=== PATIENT | female | born 1945 | race Caucasian/White ===

== ENCOUNTER 2024-11-13 08:40 | Inpatient (IN) | payer OTHER, SELFPAY ==
[2024-11-13] VITALS (11 sets, daily range): BP systolic 120–167; BP diastolic 47–108; PULSE 60–90; RESP 15–21; TEMP 36.2–36.7; O2SAT 97–100; BMI 30.8
--- NOTE | ~2024-11-13 | US_ITS ---
EXAMINATION: US carotid duplex BI DATE: 11/14/2024 09:18 INDICATION: Syncope TECHNIQUE: Grayscale, color Doppler, and pulsed Doppler images of the cervical carotid arteries were obtained. The degree of vessel stenosis is placed in one of the following categories: normal, <50%, 5 0-69%, >=70% but less than near-occlusion, near-occlusion, or total occlusion. Note that percent sten osis relative to normal distal artery lumen diameter is indirectly measured from velocity measurement s as described by Jeff, et al. Radiology 2003; [id number]. COMPARISON: None. FINDINGS: RIGHT: The right common carotid artery (CCA) peak systolic velocity (PSV) is 44 cm/s. The right internal car otid artery (ICA) PSV is 84 cm/s. The right ICA end-diastolic velocity (EDV) is 28 cm/s. The right IC A/CCA PSV ratio is 1.9. Grayscale and color Doppler images yield an estimate of <50% diameter reducti on from plaque in the ICA. The external carotid artery (ECA) PSV is 52 cm/s. There is antegrade flow in the right vertebral artery. LEFT: The left CCA PSV is 58 cm/s. The left ICA PSV is 113 cm/s. The left ICA EDV is 38 cm/s. The left ICA/ CCA PSV ratio is 1.9. Grayscale and color Doppler images yield an estimate of <50% diameter reduction from plaque in the ICA. The ECA PSV is 69 cm/s. There is antegrade flow in the left vertebral artery . IMPRESSION: 1. <50% stenosis in the right internal carotid artery. 2. <50% stenosis in the left internal carotid artery. Reviewed, dictated and finalized at location A.
--- NOTE | ~2024-11-13 | CT_ITS ---
CT head without contrast Indication: Status post fall Technique: Serial scans were obtained through the brain without the administration of contrast. Dose reduction technique was used on this scan by utilizing automated exposure control and iterative recon struction technique. The dose-length product (DLP) was 605.33 mGy-cm. Findings: There is no evidence of intracranial hemorrhage, mass lesion, or acute infarct. The ventri cles and subarachnoid spaces are dilated, consistent with normal atrophy. Low attenuation regions ar e seen within the periventricular white matter bilaterally, likely representing changes from chronic microvascular ischemic disease. There is no evidence of edema, mass effect or midline shift. The vi sualized paranasal sinuses and mastoid air cells are clear. Impression: No intracranial hemorrhage, mass, or acute infarct. Atrophy and chronic white matter changes, as above. Reviewed, dictated and finalized at location . Impression: No intracranial hemorrhage, mass, or acute infarct. Atrophy and chronic white matter changes, as above.
--- NOTE | ~2024-11-13 | CT_ITS ---
EXAMINATION: CT cervical spine wo con DATE: 11/13/2024 11:26 INDICATION: Fall TECHNIQUE: Computed tomography (CT) of the cervical spine was performed without intravenous contrast. Automated exposure control and iterative reconstruction technique were employed. The dose-length pro duct was 605.33 mGy-cm. COMPARISON: None FINDINGS: 2 mm retrolisthesis C3 on C4 and 1 mm retrolisthesis C4 on C5. Vertebral body heights are normal. Tiffany morl's node along the inferior endplate of T3. No fracture. Severe disc height loss at C3-C4, moderat e to severe disc height loss at C4-C5 and C5-C6 and moderate disc height loss at C6-C7 and T3-T4. Mil d disc height loss at C2-C3 and T2-T3. Posterior disc osteophyte complexes result in multilevel mild central canal stenosis at C3-C4 through C6-C7. Severe uncovertebral osteoarthritis bilaterally at C3- C4, C4-C5 and C6-C7 and moderate uncovertebral osteoarthritis bilaterally at C5-C6. Mild to moderate multilevel bilateral cervical and upper thoracic facet osteoarthritis. This contributes to moderate n eural foraminal stenosis on the left at C3-C4, on the right at C4-C5 and C5-C6 and bilaterally at C6- C7 with mild neural foraminal stenosis at many of the remaining cervical and upper thoracic neural fo ramina. Small CHRONIC calcification at the bilateral carotid bulbs. Cervical soft tissues are otherwi se unremarkable. Visualized apices of lungs are clear. IMPRESSION: 1. Severe cervical spondylosis. No acute osseous abnormality. Reviewed, dictated and finalized at location A.
--- NOTE | ~2024-11-13 | XR_ITS ---
Clinical Indication: Status post fall PA and lateral views of the chest: Comparison: None Findings: The lungs are clear, without evidence of focal consolidation or pleural effusion. Cardiome diastinal silhouette is within normal limits. Bones and soft tissues are unremarkable. Impression: Normal chest. Reviewed, dictated and finalized at location . Impression: Normal chest.
--- NOTE | ~2024-11-13 | XR_ITS ---
Right Knee Technique: AP, lateral, and sunrise views were obtained. Clinical History: Pain Findings: No fracture or dislocation is seen. Osseous alignment is anatomic. Joint spaces are preserv ed with minimal degenerative spurring. Soft tissues are unremarkable. No joint effusion is seen. Impression: Minimal degenerative change. Reviewed, dictated and finalized at location . Impression: Minimal degenerative change.
--- NOTE | ~2024-11-13 | CT_ITS ---
CT thoracic lumbar wo con Ordering provider: Zaira Yip PA-C History: . fall . Comparison: None. Technique: CT thoracic and lumbar spine without contrast. Automated exposure control and iterative r econstruction technique were employed. The dose-length product was 732.04 mGy-cm. Thoracic spine: FINDINGS: VERTEBRAE: Normal height and alignment. No subluxation or visible acute fracture. Degenerative change s of the spine DISC SPACES: Narrowing of multiple disc spaces in the midthoracic area. Facet joint disease at the le claire of T11-T12. PARASPINOUS SOFT TISSUES: Normal. IMPRESSION: No acute osseous abnormality of the thoracic spine. Multilevel degenerative disc disease. CT thoracic lumbar wo con Ordering provider: Zaira Yip PA-C History: 79 years Female with . fall . Comparison: None. Technique: CT lumbar spine without contrast. Automated exposure control and iterative reconstruction technique were employed. The dose-length product was 732.04 mGy-cm. FINDINGS: VERTEBRAE: Normal height and alignment. No subluxation or visible acute fracture. Degenerative change s. DISC SPACES: Narrowing of the disc L2-L3, L3-L4, L4-L5 and L5-S1. Vacuum phenomena is seen in all the se levels. Multilevel facet joint disease. T12-L1: No stenosis. L1-L2: No stenosis. L2-L3: No stenosis. Diffuse disc bulge. L3-L4: No stenosis. Diffuse disc bulge with bilateral narrowing of the foramina. L4-L5: No stenosis. Diffuse disc bulge with bilateral narrowing of the foramina. L5-S1: No stenosis. Diffuse disc bulge with bilateral narrowing of the foramina and nerve root compr ession. PARASPINOUS SOFT TISSUES: Mild atheromatous disease of the abdominal aorta. IMPRESSION: No acute osseous abnormality. Multilevel degenerative disc disease. Reviewed, dictated and finalized at location A. IMPRESSION: No acute osseous abnormality of the thoracic spine. Multilevel degenerative disc disease. CT thoracic lumbar wo con Ordering provider: Zaira Yip PA-C History: 79 years Female with . fall . Comparison: None. Technique: CT lumbar spine without contrast. Automated exposure control and it erative reconstruction technique were employed. The dose-length product was 732 .04 mGy-cm. FINDINGS: VERTEBRAE: Normal height and alignment. No subluxation or visible acute fractur e. Degenerative changes. DISC SPACES: Narrowing of the disc L2-L3, L3-L4, L4-L5 and L5-S1. Vacuum phenom junior is seen in all these levels. Multilevel facet joint disease. T12-L1: No stenosis. L1-L2: No stenosis. L2-L3: No stenosis. Diffuse disc bulge. L3-L4: No stenosis. Diffuse disc bulge with bilateral narrowing of the foramina . L4-L5: No stenosis. Diffuse disc bulge with bilateral narrowing of the foramin a. L5-S1: No stenosis. Diffuse disc bulge with bilateral narrowing of the foramin a and nerve root compression. PARASPINOUS SOFT TISSUES: Mild atheromatous disease of the abdominal aorta.
--- OUTSIDE RECORDS SUMMARY | 2024-11-13 09:06 | XMS_ITS | Encounter Summary ---
Author Organization 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 Family Medicine at [address] [phone] James Stapleton MD [address] [place] [phone] Appointment Request Social History Tobacco Use Types Packs/Day Years Used Date Smoking Tobacco: Former Cigarettes 1 30 0 08/28/1969 - 08/28/1999 Smokeless Tobacco: Never Alcohol Use Standard Drinks/Week Comments Not Currently 0 (1 standard drink = 0.6 oz pur e alcohol) Social Connection and Isolat ion Panel [NHANES] Answer Date Recorded In a typical week, how many times do you talk on the phone with family, friends, or neighbors? Once a week 05/02/2023 How often do you get togethe r with friends or relatives? Once a week 05/02/2023 How often do you attend [facility] or yarsani services? More than 4 times per year 05/02/2023 Do you belong to any clubs o r organizations such as hoahaoism groups, unions, fraternal or athletic groups, or school groups? No 05/02/2023 How often do you attend meet ings of the clubs or organizations you belong to? Never 05/02/2023 Are you , , di vorced, , never , or living with a partner? 05/02/2023 AUDIT-C Answer Date Recorded Q1: How often do you have a drink containing alc ohol? Never 05/02/2023 Q2: How many drinks containi ng alcohol do you have on a typical day when you are drinking? 1 or 2 05/02/2023 Q3: How often do you have six or more drinks on one occasion? Never 05/02/2023 Overall Financial Resource Strain (CARDIA) Answe r Date Recorded How hard is it for you to pa y for the very basics like food, housing, medical care, and heating? Somewhat hard 05/02/2023 PHQ-2 Answer Date Recorded PHQ-2 Total Score (If total score is 3 or more points, staff should administer the PHQ-9) 0 05/18/2023 Hunger Vital Sign Answer Date Recorded Within the past 12 months, y ou worried that your food would run out before you got the money to buy more. Never true 05/02/20 23 Within the past 12 months, t he food you bought just didn't last and you didn't have money to get more. Never true 05/02/2023 Housing Stability Vital Sign Answer Forrest e Recorded In the last 12 months, was t here a time when you were not able to pay the mortgage or rent on time? No 05/02/2023 In the last 12 months, how many places have you lived? 1 05/02/2023 In the last 12 months, was t here a time when you did not have a steady place to sleep or slept in a mcc (including now)? No 05/02/2023 Personal Safety Answer Date Recorded Have you ever been in or are you currently in a harmful physical or emotional relationship or is someone making you feel afraid or unsafe? 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 documented in this encounter Plan of Treatment Not on file documented as of this encounter Visit Diagnoses Not on filedocumented in this encounter Care Teams Food Bagging Machine Operator Relationship Specialty Start Date End Date James Stapleton MD PCP - General Family Medicine 10/15/18 [place] [id number] [address] Consulting Physician Gastroenterology 05/05/23 documented as of this encounter
--- OUTSIDE RECORDS SUMMARY | 2024-11-13 09:06 | XMS_ITS | CONTINUITY OF CARE DOCUMENT ---
Author Name rachel ramos Address Unknown Organization [facility] Address [address] [place] [address] Phone [phone] Care Team Providers Care College Sports Assistant Name Role Phone Venkta Lemons MD Unavailable CAMILO YO MD Unavailable PROBLEMS Condition Status Date Provider Notes Iron deficiency anemia active Caty Rubio son HYPOTHYROIDISM active ? Venkat Lemons MD Hyperlipidemia, unspecified active Chelo cortes RN DIABETES MELLITUS active ? Venkat Lemons MD OBESITY active ? Venkat Lemons MD CHEST PAIN-3/14 NUC NEG EF 61 active ? Venkat Lemons MD SHORTNESS OF BREATH-3/14 PFT MILD REST active ? Venkat Lemons MD ENCOUNTERS Date Type Provider Location Encounter Diag nosis - In-person encounter Office Visit Venkat Lemons MD [facility] Hyperlipidemia, unspecifiedCHEST PAIN-3/14 NUC NEG EF 61SHORTNESS OF BREATH-3/14 PFT MILD REST - In-person encounter Office Visit Venkat Lemons MD [facility] HYPOTHYROIDISMHyperlipidemi a, unspecifiedDIABETES MELLITUSOBESITYCHEST PAIN-3/14 NUC NEG EF 61SHORTNESS OF BREATH-3/14 PFT MILD REST VITAL SIGNS Date Observation Value Provider Body Mass Index (Ratio) 29.74 kg/m2 Charlene ica Precious Sanchez blood pressure, diastolic 70 mm[Hg] Bubba ssica Precious Sanchez blood pressure, systolic 140 mm[Hg] Radha haleighgin Sanchez oxygen saturation, oximetry 96 % Caty N Daniel respiratory rate E&M 18 /min Caty N Daniel pulse rate 72 /min Caty N Wilso n weight E&M 160 [lb_av] Caty N Wilso n Body Mass Index (Ratio) 29.85 kg/m2 Charlene ica N Daniel blood pressure, diastolic 70 mm[Hg] Je ssica N Daniel blood pressure, systolic 110 mm[Hg] Radha haleigh N Daniel oxygen saturation, oximetry 98 % Caty N Daniel respiratory rate E&M 18 /min Caty N Daniel pulse rate 74 /min Caty N Wilso n weight E&M 160.6 [lb_av] Caty N Wils on Body Mass Index (Ratio) 30.89 kg/m2 [facility] oly [facility] [place] blood pressure, cuff size regular [facility] [place] blood pressure, diastolic 80 mm[Hg] Je ssica N Daniel blood pressure, systolic 160 mm[Hg] Radha haleigh N Daniel oxygen saturation, oximetry 97 % Caty N Daniel respiratory rate E&M 20 /min Caty N Daniel pulse rate 86 /min Caty N Wilso n weight E&M 166.2 [lb_av] Caty N Wils on Body Mass Index (Ratio) 30.48 kg/m2 [facility] [place] blood pressure, diastolic 60 mm[Hg] Je ssica N Daniel blood pressure, systolic 130 mm[Hg] Radha haleigh N Daniel oxygen saturation, oximetry 97 % Caty N Daniel respiratory rate E&M 20 /min Caty N Daniel pulse rate 88 /min Caty N Wilso n weight E&M 164 [lb_av] Caty N Wilso n blood pressure, diastolic 67 mm[Hg] Nahum precious Bird RN blood pressure, systolic 119 mm[Hg] Demar Bird RN pulse rate 81 /min Demar Bird RN oxygen saturation, oximetry 98 % Demar Bird RN respiratory rate E&M 16 /min Demar stafford RN Body Mass Index (Ratio) 29.85 kg/m2 Demar Bird RN weight E&M 160 [lb_av] Demar Bird RN blood pressure, diastolic 63 mm[Hg] Nahum precious Bird RN blood pressure, systolic 127 mm[Hg] Demar Bird RN pulse rate 77 /min Demar Bird RN oxygen saturation, oximetry 98 % Demar Bird RN respiratory rate E&M 16 /min Demar stafford [place] Body Mass Index (Ratio) 30.07 kg/m2 Demar Bird RN weight E&M 161.2 [lb_av] Demar Bird RN height E&M 61.5 [in_i] Demar Bird [place] ALLERGIES No Known Drug Allergies RESULTS Date Observation Value Provider Reference Range Interpretation Location ferritin, serum 550.3 ng/mL [facility] 13.0 - 150.0 High red blood cell distribution width, size density 51.4 fL [facility] - immature granulocytes, percentage of total cells, blood 0.2 % [facility] - nucleated red blood cells as percent of blood leukocytes 0.0 % [facility] - red blood cell (erythrocyte) count, per high power field 0.0 10*3/UL [facility] - eosinophils as percent of blood leukocytes 1.9 % [facility] - neutrophils as percent of blood leukocytes 56.3 % [facility] - Absolute Neutrophils 2.9 CELLS/UL [facility] 1.5 - 7.8 basophils as percent of blood leukocytes 0.4 % [facility] - Absolute Basophils 0.0 CELLS/UL [facility] 0.0 - 0.2 monocytes as percent of blood leukocytes 6.6 % [facility] Monocytes 0.3 CELLS/UL [facility] 0.2 - 1.0 lymphocytes as percent of blood leukocytes 34.6 % [facility] - Absolute Lymphocytes 1.8 CELLS/UL [facility] 0.9 - 3.9 mean platelet volume 11.3 (?) [facility] platelet count 122.0 THOUSAND/ UL [facility] 100.0 - 400.0 mean corpuscular hemoglobin concentration, RBC 32.1 G/DL [facility] 31.0 - 38.0 mean corpuscular hemoglobin, RBC 31.6 pg [facility] 25.0 - 35.0 mean corpuscular volume, RBC 98.6 fL [facility] 75.0 - 100.0 hematocrit, blood 42.1 % [facility] 35.0 - 55.0 hemoglobin, blood 13.5 g/dL [facility] 11.5 - 16.5 erythrocyte count, whole blood 4.3 MILLION/U L [facility] 3.5 - 5.5 iron, serum 114.0 ug/dL [facility] 25.0 - 156.0 iron saturation percent, serum 28.5 % [facility] 20.0 - 50.0 iron binding capacity, total 400.4 ug/dL [facility] 250.0 - 450.0 ferritin, serum 111.8 ng/mL [facility] 13.0 - 150.0 immature granulocytes, percentage of total cells, blood 0.2 % [facility] - nucleated red blood cells as percent of blood leukocytes 0.0 % [facility] - red blood cell (erythrocyte) count, per high power field 0.0 10*3/UL [facility] - eosinophils as percent of blood leukocytes 1.7 % [facility] - neutrophils as percent of blood leukocytes 47.1 % [facility] - Absolute Neutrophils 2.2 CELLS/UL [facility] 1.5 - 7.8 basophils as percent of blood leukocytes 0.4 % [facility] - Absolute Basophils 0.0 CELLS/UL [facility] 0.0 - 0.2 monocytes as percent of blood leukocytes 5.7 % [facility] - Absolute Monocytes 0.3 CELLS/UL [facility] 0.2 - 1.0 lymphocytes as percent of blood leukocytes 44.9 % [facility] - Absolute Lymphocytes 2.1 CELLS/UL [facility] 0.9 - 3.9 mean platelet volume 10.5 (?) [facility] - platelet count 115.0 THOUSAND/ UL [facility] 100.0 - 400.0 mean corpuscular hemoglobin concentration, RBC 30.0 G/DL [facility] 31.0 - 38.0 Low mean corpuscular hemoglobin, RBC 26.1 pg [facility] 25.0 - 35.0 mean corpuscular volume, RBC 87.2 fL [facility] 75.0 - 100.0 hematocrit, blood 36.7 % [facility] 35.0 - 55.0 hemoglobin, blood 11.0 g/dL [facility] 11.5 - 16.5 Low erythrocyte count, whole blood 4.2 MILLION/U L [facility] 3.5 - 5.5 iron, serum 63.0 ug/dL [facility] 25.0 - 156.0 iron saturation percent, serum 13.9 % [facility] 20.0 - 50.0 Low iron binding capacity, total 452.2 ug/dL [facility] 250.0 - 450.0 High platelet count 197 10*3/mm3 [facility] hematocrit, blood 26.3 % Em Ro triglyceride, serum, fasting 91 mg/dL Em [facility] HDL cholesterol, serum 34 mg/dL [facility] lipoprotein, beta, serum, point, quantitative, calculated 55 mg/dL Em Ro cholesterol, serum 107 mg/dL Em Jayjay thyroid stimulating hormone, serum 0.018 u[IU]/mL [facility] B-type natriuretic peptide 198 pg/mL Em Jayjay alanine aminotransferase (SGPT), serum 30 1/L [facility] aspartate aminotransferase (SGOT), serum 54 1/L [facility] creatinine, serum 0.58 mg/dL [facility] potassium, serum 3.8 mmol/L [facility] sodium, serum 144 mmol/L [facility] HISTORY OF MEDICATION USE Medication Status Instructions Dates Provider Indications Com ments ASPIRIN 81 MG ORAL TABLET CHEWABLE active Take one (1) tablet by mouth daily 6 Venkat Lemons MD SPIRONOLACTONE 25 MG ORAL TABLET active 1 tab daily 6 Shyla Mccarty FUROSEMIDE 40 MG ORAL TABLET active 1 tab daily 6 Shyla Mccarty AMARYL 4 MG ORAL TABLET active 1 tab twice daily 6 Shyla Mccarty METFORMIN HCL 1000 MG ORAL TABLET active 1 tab twice daily 6 Shyla Mccarty CARVEDILOL 6.25 MG ORAL TABLET active 1 tab twice daily 6 Shyla Mccarty SIMVASTATIN 80 MG ORAL TABLET active 1 tab daily 6 Shyla Mccarty LEVOTHYROXINE SODIUM 150 MCG ORAL TABLET active 1 tab daily 6 Syhla Mccarty SOCIAL HISTORY Date Observation Value Provider social history reviewed E&M reviewed Demar Bird RN drug use no Demar Bird RN passive cigarette smoke exposure no Demar Bird RN smoking, year quit 2000 Demar ramey RN social history E&M Marital Status: [place] d Demar Bird RN caffeine use, average drinks per day yes Demar Bird RN smoking status former smoker Demar Enciso social history reviewed E&M reviewed Demar Bird RN MENTAL STATUS Date Observation Value Provider assessment of judgme nt and insight E&M Alert and oriented to time, place and person. Mood and affect are normal. lauren simon has speech impedament Demar Bird RN assessment of judgme nt and insight E&M Alert and oriented to time, place and person. Mood and affect are normal. 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 1 tab twice daily Amaryl 4 Mg Tabs (Glimepiride) ..... 1 tab twice daily Aspirin 81 Mg Chw Tab (Aspirin) ..... Take one (1) tablet by mouth daily BP today: / Prior BP: 127/63 (09/26/2013) Labs Reviewed: C reat: 0.58 (09/10/2013) Venkat Lemons MD Venkat Lemons MD : H er updated medication list for this problem includes: Carvedilol 6.25 Mg Tabs (Carvedilol) ..... 1 tab twice daily Furosemide 40 Mg Tabs (Furosemide) ..... 1 tab daily Spironolactone 25 Mg Tabs (Spironolactone) ..... 1 tab daily Aspirin 81 Mg Chw Tab (Aspirin) ..... Take one (1) tablet by mouth daily BP today: / Prior BP: 127/63 (09/26/2013) N uclear Stress Findings: 1. Normal myocardial perfusion imaging after vasodilator stress with Regadenoson. 2 . Normal left ventricular systolic function with a calculated ejection fraction of 61%. 3 . No obvious significant scintigraphic evidence of myocardial ischemia or scar. - GC (10/09/2013) H CT: 26.3 (09/10/2013) Platelets: 197 (09/10/2013) C reat: 0.58 (09/10/2013) Na+: 144 (09/10/2013) K+: 3.8 (09/10/2013) SGOT (AST): 54 (09/10/2013) SGPT (ALT): 30 (09/10/2013) TSH: 0.018 (09/10/2013) Venkat Lemons MD new patient for ches t pain: H er updated medication list for this problem includes: Carvedilol 6.25 Mg Tabs (Carvedilol) ..... 1 tab twice daily BP today: 127/63 Prior BP: / () & #13;Orders: E KG (CPT-78792) S TR - Adenosine (40176) C omplete Echo (CPT-41415) F ull PFT (*) Venkat Lemons MD new patient for ches t pain: H er updated medication list for this problem includes: Simvastatin 80 Mg Tabs (Simvastatin) ..... 1 tab daily BP today: 127/63 Prior BP: / () Venkat Lemons MD new patient for ches t pain: H er updated medication list for this problem includes: Levothyroxine Sodium 150 Mcg Tabs (Levothyroxine sodium) ..... 1 tab daily Venkat Lemons MD Date Name FERRITIN IRON AND TOTAL IRON BINDING CAPACITY IRON, TOTAL CBC (INCLUDES DIFF/P LT) Full PFT Complete Echo STR - Adenosine HISTORY OF PROCEDURES Procedure Date Procedure Name Provider Procedure Notes S tatus DLCO - 36257 Venkat Lemons MD complet ed FRC - 45372 Venkat Lemons MD complete d FVC - 91860 Venkat Lemons MD complete d EKG Venkat Lemons MD completed
--- OUTSIDE RECORDS SUMMARY | 2024-11-13 09:06 | XMS_ITS | Referral Summary ---
Author Organization [facility] [address] [facility] Address [address] [place] [address] Care Team Providers Care Applied Behavior Science Specialist Name Role Phone James Stapleton MD Primary Care Provider [phone] Jose Benavidez MD Unavailable Encounters Date Type Department Care Team Description 11/12/2024 Telephone [facility] Medical [facility] Family Medicine at [address] [place] [phone] James Stapleton MD Appointment Request 10/25/2024 Telephone [facility] Family Medicine at [address] [place] [address] Shayla Velasquez MA Unsuccessful Phone Call 1 (Essence awv) from Last 3 Months Allergies No known active allergies Medications blood-glucose meter (Blood Glucose Monitoring) kitIndications: Type 2 diabetes mellitus without complication, without long-term current use of insulin (HCC) 1 kit daily Check blood sugar daily 1 each 1 Active lancets miscIndications :Type 2 diabetes mellitus without complication, without long-term current use of insulin (HCC) Check blood sugar daily 100 each [address] (PROTONIX) 40 mg EC tabletIndicatio ns:GI Bleed Take 1 tablet (40 mg total) by mouth daily 30 tablet 11 3 Active losartan (COZAAR) 100 mg tablet Take 0.5 tablets (50 mg total) by mouth daily 30 tablet 5 4 Active triamcinolone (KENALOG) 0.1 % ointment Apply topically 2 (two) times a day as needed for rash 60 g 1 4 Active Additional Information Patient not taking.Reported on 01/04/2024 spironolactone (ALDACTONE) 25 mg tablet Take 1 tablet by mouth once daily 90 tablet 2 4 Active metFORMIN (GLUCOPHAGE) 1,000 mg tablet Take 1 tablet by mouth twice daily 180 tablet 2 4 Active carvediloL (COREG) 6.25 mg tablet Take 1 tablet by mouth twice daily 180 tablet 4 Active levothyroxine (SYNTHROID) 137 mcg tablet Take 1 tablet by mouth once daily 90 tablet 4 Active pioglitazone (ACTOS) 15 mg tablet Take 1 tablet by mouth once daily 90 tablet 4 Active glimepiride (AMARYL) 4 mg tablet Take 1 tablet by mouth twice daily 180 tablet 4 Active lovastatin (MEVACOR) 20 mg tablet Take 1 tablet by mouth once daily 90 tablet 4 Active Active Problems Problem Noted Date Diagnosed Date Anemia 04/29/2023 Primary localized osteoarthrosis of shoulder reg ion 02/28/2022 Radiotherapy follow-up 02/28/2022 Thrombocytopenia 04/02/2020 Medicare annual wellness visit, subsequent 03/29 Essential hypertension 11/23/2018 Assessment & Plan (10/20/2021 9:58 AM CDT): Well controlled. Continue current regimen. Hypothyroidism 11/23/2018 Assessment & Plan (10/20/2021 9:58 AM CDT): Update labs per orders. Continue levothyroxine Type 2 diabetes mellitus wit hout complication, without long-term current use of insulin ([facility]) 11/23/2018 Assessment & Plan (10/20/2021 9:57 AM CDT): Last A1C was 8.3 but since then Farxiga has gotten to expensive so she stopped. Will d/c Farxiga and try Januvia 100 mg daily instead. Continue metformin and glimepiride. DM eye exam is UTD 12/2020. Check A1C, CMP, and uACR. Lymphedema 11/23/2018 Assessment & Plan (11/23/2018 10:36 AM CDT): Stop lasix Cont spironolactone Chronic right shoulder pain 11/23/2018 Assessment & Plan (11/23/2018 10:36 AM CDT): To ortho Iron deficiency anemia 08/11/2016 Assessment & Plan (10/20/2021 9:59 AM CDT): FIT test 07/2021 was negative. Recheck CBC along with iron studies and B12. Hyperlipidemia, unspecified 07/24/1959 Resolved Problems Problem Noted Date Diagnosed Date Resolved Date Gastrointestinal hemorrhage 04/28/2023 08/22/2023 Chest pain, unspecified 02/28/2022 03/0 03/2023 Diabetes mellitus 02/28/2022 08/22/2023 Incomplete tear of rotator cuff 02/28/2022 08/22/2023 Obesity 02/28/2022 08/22/2023 Shortness of breath 02/28/2022 05/18/20 23 Shoulder joint pain 02/28/2022 08/22/19 24 Right upper quadrant pain 10/20/2021 Assessment & Plan (10/20/2021 9:54 AM CDT): Suspect more musculoskeletal but will check CBC and CMP along with RUQ US. Start celebrex 100 mg BID Immunizations Immunization Administration Dates Next Due COVID-19 MRNA (MODERNA) .5 M L (50 MCG) VACCINE (12 YEARS AND UP) 05/05/2023 Influenza, Quadrivalent, Hig h Dose, Preservative Free, Intrr 04/10/2023,04/17/2022 Influenza, Quadrivalent, Rec ombinant, Egg Free, Preservative Free, Intramuscular 04/23/2020 Influenza, Trivalent, High D ose, Split, Preservative Free, Intramuscular 04/01/2019,03/23/2018,05/02/2017,05/02,07/24/2015 Influenza, Unspecified 03/24/2021 Pneumococcal Conjugate PCV 13 05/04/2016 Pneumococcal Polysaccharide PPV23 05/02/2017 RSV Vaccine, Pref, Recombina nt, Subunit, Adjuvanted, PF, IM (Arexvy) 04/10/2023 Tdap 02/23/2022 ZOSTER Recombinant 07/13/2022,03/28/2022 Social History Tobacco Use Types Packs/Day Years Used Date Smoking Tobacco: Former Cigarettes 1 30 0 08/28/1969 - 08/28/1999 Smokeless Tobacco: Never Tobacco Cessation:Counseling Given: Not Answered Alcohol Use Standard Drinks/Week Comments Not Currently [...] week 05/02/2023 How often do you attend chur ch or judaism services? More than 4 times per year 05/02/2023 Do you belong to any clubs o r organizations such as gnosticism groups, unions, fraternal or athletic groups, or [...] place to sleep or slept in a usp (including now)? No 05/02/2023 Personal Safety Answer Date Recorded Have you ever been in or are you currently in a harmful physical or emotional relationship or is someone making you feel afraid or unsafe? Denies 05/02/2023 Comments No Sex and Gender Information Value Date Recorded Sex Assigned at Not on file Legal Sex Female 11:27 PM ETYMOLOGY TEACHER Gender Identity Not on file Sexual Orientation Not on file Last Filed Vital Signs Vital Sign Reading Time Taken Comments Blood Pressure 148/88 01/04/2024 9:44 AM CDT Pulse 79 01/04/2024 9:44 AM CDT Temperature 36.5 C (97.7 F) 08/22/2023 9:23 AM ETYMOLOGY TEACHER Respiratory Rate 16 01/04/2024 9:44 AM CDT Oxygen Saturation 98% 01/04/2024 9:44 AM CDT Inhaled Oxygen Concentration - - Weight 71.8 kg (158 lb 6.4 oz) 01/04/2024 9:44 A M CDT Height 154.9 cm (5' 1 ) 01/04/2024 9:44 AM CDT Body Mass Index 29.93 01/04/2024 9:44 AM CDT Plan of Treatment Not on file Procedures Procedure Name Priority Date/Time Associated Diagnosis Comments COMPREHENSIVE METABOLIC PANEL Routine 02/01/2024 9:36 AM CDT Essential hypertension Type 2 diabetes mellitus without complication, without long-term current use of insulin (HCC) HEMOGLOBIN A1C Routine 02/01/2024 9:36 AM CDT Type 2 diabetes mellitus without complication, without long-term current use of insulin (HCC) LIPID PANEL Routine 02/01/2024 9:36 AM CDT Essential hypertension ALBUMIN CREATININE RATIO, URINE Routine 08/18/2023 9:29 AM ETYMOLOGY TEACHER Type 2 diabetes mellitus without complication, without long-term current use of insulin (HCC) COLONOSCOPY 05/02/2023 4:26 PM CDT DEXA AXIAL SKELETON BONE DENSITY 1 OR MORE SITES Schedule Routine, Read Routine (OP Routine) 11/09/2022 11:23 AM CDT Post menopausal problems Stress fracture of left foot with routine healing, subsequent encounter DIAGNOSTIC MAMMOGRAM BILATERAL W ERIK Schedule Routine, Read Routine (OP Routine) 04/07/2022 10:57 AM CDT Abnormal mammogram of right breast Abnormal mammogram of left breast from Last 3 Months or Most Recently Relevant to Health Maintenance Results * (ABNORMAL) Hemoglobin A1c (02/01/2024 9:36 AM CDT) Hgb A1C 7.9(H) <5.7 % of total Hgb [facility] Comment: For someone without known diabetes, a hemoglobin A1c value of 6.5% or greater indicates that they may have diabetes and this should be confirmed with a follow-up test. For someone with known diabetes, a value <7% indicates that their diabetes is well controlled and a value greater than or equal to 7% indicates suboptimal control. A1c targets should be individualized based on duration of diabetes, age, comorbid conditions, and other considerations. Currently, no consensus exists regarding use of hemoglobin A1c for diagnosis of diabetes for children. This test was performed on the Nilay pepe c503 platform. Effective 10/09/23, a change in test platforms from the Robbins Microsoft Exchange Architect to the Nilay pepe c503 may have shifted HbA1c results compared to historical results. Based on laboratory validation testing conducted at [facility], the Nilay platform relative to the Robbins platform had an average increase in HbA1c value of < or = 0.3%. This difference is within accepted variability established by the National Glycohemoglobin Standardization Program. Note that not all individuals will have had a shift in their results and direct comparisons between historical and current results for testing conducted on different platforms is not recommended. Blood 02/01/2024 9:36 AM CDT 02/01/2024 9:37 AM CDT Narrative [facility] - 02/01/2024 10:21 PM CDT FASTING:YES FASTING: YES us James Stapleton MD LAB BLOOD ORDERABLES Final Re sult [facility] [address] [place] [address] * (ABNORMAL) Lipid panel (02/01/2024 9:36 AM CDT) [facility] Cholesterol 155 <200 mg/dL [facility] HDL 45(L) > OR = 50 mg/dL [facility] Triglycerides 119 <150 mg/dL [facility] LDL 88 mg/dL (calc) [facility] Comment: Reference range: <100 Desirable range <100 mg/dL for primary prevention; <70 mg/dL for patients with CHD or diabetic patients with > or = 2 CHD risk factors. LDL-C is now calculated using the Liu-Baldo calculation, which is a validated novel method providing better accuracy than the Friedewald equation in the estimation of LDL-C. Liu GIBBS et al. ZAC. 2013;310(19): 2975-6467 (http://education.Warranty Life.Kontron/faq/DLT384) Chol/HDL ratio 3.4 <5.0 (calc) [facility] Non-HDL, (LDL+VLDL) 110 <130 mg/dL (calc) [facility] Comment: For patients with diabetes plus 1 major ASCVD risk factor, treating to a non-HDL-C goal of <100 mg/dL (LDL-C of <70 mg/dL) is considered a therapeutic option. Blood 02/01/2024 9:36 AM CDT 02/01/2024 9:37 AM CDT Narrative [facility] - 02/01/2024 10:21 PM CDT FASTING:YES FASTING: YES James Stapleton MD LAB BLOOD ORDERABLES Final Re sult [facility] [address] [place] [address] * (ABNORMAL) Comprehensive metabolic panel (02/01/2024 9:36 AM CDT) [facility] Glucose 123(H) 65 - 99 mg/dL [facility] Comment: Fasting reference interval For someone without known diabetes, a glucose value between 100 and 125 mg/dL is consistent with prediabetes and should be confirmed with a follow-up test. BUN 11 7 - 25 mg/dL [facility] Creatinine 0.81 0.60 - 1.00 mg/dL [facility] eGFR 75 > OR = 60 mL/min/1.7 3m2 [facility] BUN/creat ratio SEE NOTE: 6 - 22 (calc) [facility] Comment: Not Reported: BUN and Creatinine are within reference range. Sodium 137 135 - 146 mmol/L [facility] Potassium, pl 4.1 3.5 - 5.3 mmol/L [facility] Chloride 104 98 - 110 mmol/L [facility] CO2 25 20 - 32 mmol/L [facility] Calcium 9.3 8.6 - 10.4 mg/dL [facility] Protein, sr 6.6 6.1 - 8.1 g/dL [facility] Albumin 4.1 3.6 - 5.1 g/dL [facility] GLOBULIN 2.5 1.9 - 3.7 g/dL (calc) [facility] Alb/glob ratio 1.6 1.0 - 2.5 (calc) [facility] Bilirubin, total 0.7 0.2 - 1.2 mg/dL [facility] Alk phos 63 37 - 153 U/L [facility] AST 21 10 - 35 U/L [facility] ALT (SGPT) 14 6 - 29 U/L [facility] Blood 02/01/2024 9:36 AM CDT 02/01/2024 9:37 AM CDT Narrative [facility] - 02/01/2024 10:21 PM CDT FASTING:YES FASTING: YES James Stapleton MD LAB BLOOD ORDERABLES Final Re sult [facility] [address] [place] [address] * (ABNORMAL) Albumin Creatinine Ratio, Urine (08/18/2023 9:29 AM ETYMOLOGY TEACHER) Creatinine, ur 87 20 - 275 mg/dL [facility] Microalbumin, ur 8.4 See Note: mg/dL [facility] Comment: Reference Range: Reference Range Not established Microalbumin/creat ratio 97(H) <30 mcg/mg creat [facility] Comment: The ADA defines abnormalities in albumin excretion as follows: Albuminuria Category Result (mcg/mg creatinine) Normal to Mildly increased <30 Moderately increased 30-299 Severely increased > OR = 300 The ADA recommends that at least two of three specimens collected within a 3-6 month period be abnormal before considering a patient to be within a diagnostic category. Urine 08/18/2023 9:29 AM ETYMOLOGY TEACHER 08/18/2023 9:32 AM ETYMOLOGY TEACHER Narrative [facility] - 08/19/2023 12:59 PM ETYMOLOGY TEACHER FASTING:YES FASTING: YES James Stapleton MD LAB URINE ORDERABLES Final Re sult Performing Organization Address City/[facility]/ZIP Co de Phone Number [facility] [address] [address] * COLONOSCOPY (05/02/2023 4:26 PM CDT) Anatomical Region Laterality Modality Other Narrative Procedure Note Jose Benavidez MD - 05/02/2023 4:26 PM CDT [facility] Endoscopy [facility] Patient Name: Zenobia White Procedure Date: 05/02/2023 4:26 PM Date of : 1945 Admit Type: Inpatient Age: 77 Gender: Female Note Status: Finalized Attending MD: Jose Benavidez M.D. Procedure Date: 05/02/2023 Procedure: Colonoscopy Indications: Heme positive stool, Iron deficiency anemiasecondary to chronic blood loss Providers: Jose Benavidez M.D., Honey Yarbrough, BUILDING RENTAL MANAGER (Anesthesia Staff), Awilda Ron, KYRA, Samantha Putnam, Horseradish Maker Referring MD: Zulma Terrazas M.D. Medicines: Fentanyl 50 micrograms IV, Midazolam 2 mg IV Complications: No immediate complications. Estimated Blood Loss: Estimated blood loss: none. Procedure: Pre-Anesthesia Assessment: - Airway Examination: normal oropharyngeal airwayand neck mobility. - Respiratory Examination: clear to auscultation. - ASA Grade Assessment: III - A patient with severe systemic disease. - After reviewing the risks and benefits, thepatient was deemed in satisfactory condition to undergo the procedure. - The risks and benefits of the procedure and the sedation options and risks were discussed with the patient. All questions were answered and informed consent was obtained. After I obtained informed consent, the scope was passed under direct vision. Throughout theprocedure, the patient's blood pressure, pulse, and oxygen saturations were monitored continuously. The scopewas passed under direct vision. The Colonoscope was introduced through the anus and advanced to the the cecum, identified by the appendiceal orifice, ileocecal valve and palpation. The colonoscopy was performed with ease. The patient tolerated the procedure well. The quality of the bowelpreparation was evaluated using the BBPS ([place] BowelPreparation Scale) with scores of: Right Colon = 3, Transverse Colon = 3 and Left Colon = 3 (entire mucosa seenwell with no residual staining, small fragments of stoolor opaque liquid). The total BBPS score equals 9. The quality of the bowel preparation was good. Thebowel preparation used was Plenvu via split dose instruction. Bowel prep was administered using asplit dose. Findings: The perianal and digital rectal examinations were normal. A 3 mm polyp was found in the sigmoid colon. The polyp was sessile.The polyp was removed with a cold biopsy forceps. Resection and retrieval were complete. Estimated blood loss: none. A few medium-mouthed diverticula were found in the sigmoid colon. The retroflexed view of the distal rectum and anal verge was normaland showed no anal or rectal abnormalities. Impression: - One 3 mm polyp in the sigmoid colon, removed witha cold biopsy forceps. Resected and retrieved. - Diverticulosis in the sigmoid colon. - The distal rectum and anal verge are normal on retroflexion view. Recommendation: - Return patient to hospital chan for ongoingcare. - Await pathology results. - Repeat colonoscopy is not recommended. 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 All rights reserved. The codes documented in this report are preliminary and upon clinical coder reviewmay be revised to meet current compliance requirements. Electronically signed by Jose Benavidez MD Jose Benavidez M.D. 05/02/2023 5:12:06 PM Number of Addenda: 0 Note Initiated On: 05/02/2023 4:26 PM Jose Benavidez MD ENDOSCOPY PROCEDURES Edited Resu lt - Final * Dexa Axial Skeleton Bone Density 1 Or 2 Site (11/09/2022 11:23 AM CDT) Anatomical Region Laterality Modality Body N/A Mammography 11/09/2022 5:57 PM CDT Narrative 11/09/2022 5:57 PM CDT EXAM DESCRIPTION: DEXA AXIAL SKELETON BONE DENSITY 1 OR MORE SITES REASON FOR STUDY: 77 y/o year old F with given history of screening. Energy Technician/Model: Apprenda A (S/N [id number]) CLINICAL INFORMATION: Current height: 60.5 inches Maximum height: 63 inches Weight: 164 pounds Risk factors: Prior fracture and parent with hip fracture COMPARISON: None available FINDINGS: AP LUMBAR SPINE L1-L4: Total BMD is 0.985 g/cm2 T-score is -0.6 LEFT HIP: Total BMD is 0.668 g/cm2 T-score is -2.2 Femoral neck BMD is 0.590 g/cm2 T-score is -2.3 FRAX: 10 year risk for a major osteoporotic fracture is 36 %, 10 year risk for a hip fracture is 22 % IMPRESSION: Low bone mass REFERENCE: Bone mineral density: Normal (T-score above or = -1.0) Low bone mass (T-score between -1.0 and -2.5) replaces the previously used term osteopenia Osteoporosis (T-score = or below -2.5) Medical evaluation for secondary causes of low bone mineral density may be appropriate. FRAX is a World Health Organization validated fracture risk assessment tool that calculates a person's 10 year probability of a major osteoporosis related fracture and hip fracture. According to the National Osteoporosis Foundation guidelines, postmenopausal women and men age 50 or older with low bone mass and a 10 year probability of a major osteoporosis related fracture = or greater than 20% or a 10 year probability of a hip fracture = or greater than 3% should be considered for treatment. For further information, including treatment recommendations, please refer to the 2013 ISCD Official Positions (http://www.iscd.org) and the NOF's Clinician's Guide to Prevention and Treatment of Osteoporosis (http://www.nof.org/professionals/clinical-guidelines) THIS IS AN ELECTRONICALLY VERIFIED FINAL REPORT 11/09/2022 5:57 PM - Electronically signed by Kathleen Birmingham M.D. TW: TW Report ID: [id number] Reading Location: [id number] Procedure Note Kathleen Birmingham MD - 11/09/2022 EXAM DESCRIPTION: DEXA AXIAL SKELETON BONE DENSITY 1 OR MORE SITES REASON FOR STUDY: 77 y/o year old F with given history of screening. Energy Technician/Model: Apprenda A (S/N [id number]) CLINICAL INFORMATION: Current height: 60.5 inches Maximum height: 63 inches Weight: 164 pounds Risk factors: Prior fracture and parent with hip fracture COMPARISON: None available FINDINGS: AP LUMBAR SPINE L1-L4: Total BMD is 0.985 g/cm2 T-score is -0.6 LEFT HIP: Total BMD is 0.668 g/cm2 T-score is -2.2 Femoral neck BMD is 0.590 g/cm2 T-score is -2.3 FRAX: 10 year risk for a major osteoporotic fracture is 36 %, 10 year risk for ahip fracture is 22 % IMPRESSION: Low bone mass REFERENCE: Bone mineral density: Normal (T-score above or = -1.0) Low bone mass (T-score between -1.0 and -2.5) replaces thepreviously used term osteopenia Osteoporosis (T-score = or below -2.5) Medical evaluation for secondary causes of low bone mineral density may be appropriate. FRAX is a World Health Organization validated fracture risk assessmenttool that calculates a person's 10 year probability of a major osteoporosisrelated fracture and hip fracture. According to the National OsteoporosisFoundation guidelines, postmenopausal women and men age 50 or older with low bonemass and a 10 year probability of a major osteoporosis related fracture = or greater than 20% or a 10 year probability of a hip fracture = or greaterthan 3% should be considered for treatment. For further information, including treatment recommendations, please referto the 2013 ISCD Official Positions (http://www.iscd.org) and the NOF's Clinician's Guide to Prevention and Treatment of Osteoporosis (http://www.nof.org/professionals/clinical-guidelines) THIS IS AN ELECTRONICALLY VERIFIED FINAL REPORT 11/09/2022 5:57 PM - Electronically signed by Kathleen Birmingham M.D. TW: LOREN Report ID: [id number] Reading Location: [id number] us James Stapleton MD IMG DXA PROCEDURES Final Resu lt * Diagnostic Mammogram Bilateral W Erik (04/07/2022 10:57 AM CDT) Anatomical Region Laterality Modality Breast Bilateral Mammography 04/07/2022 11:2 8 AM CDT Impressions 04/07/2022 11:42 AM CDT 1. The multiple small masses in the left breast are either unchanged or decreased in size since April 2019, evidence of benign etiologies. 2. No mammographic or sonographic evidence of malignancy. Routine screening mammogram in 1 year is recommended. BIRADS 2 - Benign findings. COMMENT: The patient has been or will be notified of these findings and impression. THIS IS AN ELECTRONICALLY VERIFIED FINAL REPORT 04/07/2022 11:42 AM - Electronically signed by Karlos Mane M.D., MD: Report ID: [id number] Reading Location: MAMME Narrative 04/07/2022 11:42 AM CDT EXAM DESCRIPTION: US BREAST LEFT LIMITED; DIAGNOSTIC MAMMOGRAM BILATERAL W ERIK REASON FOR STUDY: 76-year-old female presents for follow-up of probably benign left breast masses and annual left screening mammogram. COMPARISON: Mammogram and ultrasound from 04/25/2019. Mammogram only from 04/08/2019. TECHNIQUE: CC and MLO views of the bilateral breasts were obtained with digital technique using breast tomosynthesis with C view. Multiple grayscale and color Doppler ultrasound images of the left breast were obtained. FINDINGS: DENSITY: The breasts are almost entirely fatty. MAMMOGRAM FINDINGS: There is a tiny group of stable benign calcifications in the right breast at 12 o'clock, middle depth. There is a 4 mm oval low-density mass in the left breast at approximately 4 o'clock, anterior to middle depth, and there is a 3 mm oval low-density mass in the left breast at 2-3 o'clock, anterior depth. Neither of these masses has suspiciously changed, evidence of benign etiologies based on documented stability of at least 2 years. The 4 o'clock mass was occult on prior ultrasound. The other small low-density masses in the left breast evident on prior mammography are not identified on this examination, likely representing benign resolved entities. New suspicious findings are seen within either breast. There has been no suspicious interval change. ULTRASOUND FINDINGS: Targeted ultrasound of the left breast at 2:30 o'clock, 4 cm from the nipple demonstrates a 3 x 1 x 2 mm circumscribed hypoechoic mass, which has not suspiciously changed. Targeted ultrasound of the left breast at 1 o'clock, 5 cm from the nipple demonstrates a 2 x 1 x 2 mm circumscribed hypoechoic mass, which has not suspiciously changed. Targeted ultrasound of the left breast at 12:30 o'clock, 4-5 cm from the nipple demonstrates a 2 x 2 x 2 mm circumscribed hypoechoic mass, which has not suspiciously changed. James Stapleton MD IM MAMMO PROCEDURES Final Re sult from Last 3 Months or Most Recently Relevant to Health Maintenance Insurance [employer] Advance Directives For more information, please contact: [phone] Documents on File Type Date Recorded Patient Washer Carcass Expl anation ADVANCE DIRECTIVE 03/29/2019 * Full Code (Latest Code Status on File) Date Activated Date Inactivated Comments 05/02/2023 3:13 PM 05/05/2023 10:06 PM * Full Code Date Activated Date Inactivated Comments 05/01/2023 1:15 PM 05/02/2023 3:13 PM Care Teams Applied Behavior Science Specialist Relationship Specialty Start Date End Date James Stapleton MD PCP - General Family Medicine 10/15/18 [place] [id number] [address] Consulting Physician Gastroenterology 05/05/23
--- OUTSIDE RECORDS SUMMARY | 2024-11-13 09:06 | XMS_ITS ---
Author Organization 1 OF [facility] Address [address] [facility] [address] [place] [address] Care Team Providers Care Garment Examiner Name Role Phone James Stapleton MD Primary Care Provider Unavailab Jaycee Nova Unavailable [phone] Allergies No Known Allergies REASON FOR VISIT Pain in RT foot shooting up to knee Medications Medication SIG (Take, Route, Frequency, Duration) Notes Start Date End Date Status Pantoprazole Sodium Active Ferrous Sulfate Acti ve Pioglitazone HCl Act addis CeleBREX Active Farxiga Not-Taking Levothyroxine Sodium Active Dapagliflozin Propanediol Not-Taking Glimepiride Active Lidocaine ointment 5% Apply to affected area of foot topical every 4-6 hours prn pain for 60 days 09/28/2022 Not-Taking Coreg Not-Taking Losartan Potassium A ctive Lovastatin Active Carvedilol Active metFORMIN HCl Active Spironolactone Activ e Vital Signs Height 61 in 05/22/2023 Weight 164 lbs 05/22/2023 BMI 30.98 kg/m2 05/22/2023 Encounters Encounter Location Date Provider Diagnosis 1 OF [facility] [address] [place] [address] [place] [id number] 05/22/2023 Jaycee Holguin Tendinitis of right foot M77.51 ; Type 2 diabetes mellitus with other circulatory complications E11.59 ; Right foot pain M79.671 ; Onychogryphosis L60.2 and Onychodystrophy L60.3 Assessments Encounter Date Diagnosis (ICD Code) Assessment Notes Treatment Notes Treatment Clinical Notes Section Notes 05/22/2023 Tendinitis of right foot (ICD-10 - M77.51) Evaluation today included a review of medical history, review of systems, discussion of exam findings, and review of diagnoses and treatment options. X-rays were reviewed and discussed. She was advised to rest her foot as much as possible. She can ice her foot for 10-15 minutes at a time. I recommended immobilization in the previous Cam Walker boot that she has at home. She states that she will try this. She was advised to wear the boot as much as possible. I discussed potential transitioning into an ankle brace or inserts in her shoes when her pain improves. All questions and concerns were addressed. 05/22/2023 Type 2 diabetes mellitus with other circulatory complications (ICD-10 - E11.59) Considering the associated comorbidities and physical exam findings today, this patient is at substantial risk of developing serious foot complications in the absence of regular and professional palliative foot care. 05/22/2023 Right foot pain (ICD-10 - M79.671) 05/22/2023 Onychogryphosis (ICD-10 - L60.2) 05/22/2023 Onychodystrophy (ICD-10 - L60.3) Plan Of Treatment Treatment Notes Assessment Notes Tendinitis of right foot Evaluation toda y included a review of medical history, review of systems, discussion of exam findings, and review of diagnoses and treatment options. X-rays were reviewed and discussed. She was advised to rest her foot as much as possible. She can ice her foot for 10-15 minutes at a time. I recommended immobilization in the previous Cam Walker boot that she has at home. She states that she will try this. She was advised to wear the boot as much as possible. I discussed potential transitioning into an ankle brace or inserts in her shoes when her pain improves. All questions and concerns were addressed. Type 2 diabetes mellitus wit h other circulatory complications Considering the associated comorbidities and physical exam findings today, this patient is at substantial risk of developing serious foot complications in the absence of regular and professional palliative foot care. Next Appt Details Follow Up: 3 Weeks,prn, Reas on: RT foot pain Procedure Notes * Category Sub-Category Detail Notes PALLIATIVE FOOT CARE: Nail debride (91413): Debr idement of five or less mycotic and/or hypertrophic nails, utilizing manual and electric debridement the affected nails were reduced the nails in length and thickness with curettage of debris from nail margins performed as needed. Nail thickness reduced by: 10% Dystrophic nail trim (G0127) All dystrop hic nails reduced in length and thickness with curettage of debris from nail margins as needed Progress Notes * Meghann WHITEhDOB:1945 (77 yo F)Acc No.[id number]:05/22/2023 Progress Notes Patient: Zenobia WILD Provider: Zaria Holguin DPM :1945 A ge:77 Y S ex:Female Date:05/22/2023 [address] Pcp:James Stapleton MD Subjective: * Chief Complaints: * P ain in RT foot shooting up to knee * HPI: Adarsh Askew assisting with visit:: HPI/Rooming: Sandi solomon. Chely scott reason for visit:: Pain level: R ight foot: 05/02. New Problem: [age] year old diabetic female PTO with chief complaint of sharp pain in the RT foot for about 2 months duration that is localized to every surface of the RT heel, plantar,lateral, medial and posterior aspects. Pt reports that she notices the pain before she puts weight on her foot, and it is worse when she puts weight on it. Pt reports a recent hospitalization for very low blood sugar where she required a transfusion. S he reports history of a heel spur. She reports that her pain right now is rated as a 10/10. She denies any injury to the foot. L ast A1C: pt reports she has not has her A1C measured recently.. * ROS: * MULTI-SYSTEM REVIEW:: Nausea, fever or chillls d enies. C urrently dealing with infection, flu or open wound: d enies. A ny change in medications since last visit? d enies. A ny changes in medical history/hospitalizations? admits. * Medical History: * Medications: T akingFerrous Sulfate Pantoprazole Sodium CeleBREX Pioglitazone HCl Carvedilol Spironolactone metFORMIN HCl Lovastatin Losartan Potassium Levothyroxine Sodium Glimepiride Taking Ferrous Sulfate Taking Pantoprazole Sodium Taking CeleBREX Taking Pioglitazone HCl Taking Carvedilol Taking Spironolactone Taking metFORMIN HCl Taking Lovastatin Taking Losartan Potassium Taking Levothyroxine Sodium Taking Glimepiride Not-Taking/PRNFarxiga Dapagliflozin Propanediol Coreg Lidocaine ointment 5% ointment Apply to affected area of foot topical every 4-6 hours prn pain Medication List reviewed and reconciled with the patientNot-Taking/PRN Farxiga Not-Taking/PRN Dapagliflozin Propanediol Not-Taking/PRN Coreg Not-Taking/PRN Lidocaine ointment 5% ointment Apply to affected area of foot topical every 4-6 hours prn pain Medication List reviewed and reconciled with the patient * Allergies: N .K.D.A.no[Allergies Verified] Objective: * Vitals: W t:164lbs, Wt-k.39 kg, Ht: 61 in, BMI:30.98Index. * Examination: G eneral Examination: Constitutional / Appearance: N o acute distress , Well nourished, Appropriate personal hygiene. Mental status: C ooperative, Oriented to person, place and time, Mood and affect: normal, Judgement and intellect: normal with appropriate response to questions. Shoes today: L marika-up hiking shoes. Exam unchanged from prior visit: w ith no significant changes in appearance or condition of feet, excluding the following findings noted on exam today of the right foot: No acute edema noted. No ecchymosis noted. Some pain with palpation along the course of the lateral aspect of the ankle and the peroneal tendons. Some pain with palpation of the Achilles tendon. No acute pain with lateral squeeze test of the calcaneus. Some discomfort with palpation along the plantar heel. Pain with manual muscle strength testing against resistance to all muscle groups.. D iagnostic Studies: : X-rays of right lower extremity: 3 views of right foot:No acute fractures or dislocations noted. Diffuse osteopenia noted. 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 L ower Extremity DERM: : Skin: t hin, atrophic, no suspicious lesions, no open sores, bilateral. Nails: N ail plates of:TA and A8lxrnen elongated, thickened, dystrophic, discolored, with subungual debris. Multiple other nails appear elongated and dystrophic with abnormal shape, periungual debris, subungual hyperkeratosis. Hyperkeratotic lesions LEFT foot: no significant hpk lesions noted. Hyperkeratotic lesions RIGHT foot: no significant hpk lesions noted. L ower Extremity VASCULAR: : Pulses: D P pulse diminished bilateral; PT pulse absent bilateral. Temperature gradient: decreased from proximal to distal, bilateral. Pedal hair: a bsent, bilateral. Capillary refill at distal toes less than 5 seconds, bilateral. Assessment: * Assessment: 1. T ype 2 diabetes mellitus with other circulatory complications - E11.59 (Primary) 2 .?Tendinitis of right foot - M77.51 3 . R ight foot pain - M79.671 4 . O nychogryphosis - L60.2 5 . O nychodystrophy - L60.3 Plan: * Treatment: 2. T endinitis of right foot Notes: Evaluation today included a review of medical history, review of systems, discussion of exam findings, and review of diagnoses and treatment options. X-rays were reviewed and discussed. She was advised to rest her foot as much as possible. She can ice her foot for 10-15 minutes at a time. I recommended immobilization in the previous Cam Walker boot that she has at home. She states that she will try this. She was advised to wear the boot as much as possible. I discussed potential transitioning into an ankle brace or inserts in her shoes when her pain improves. All questions and concerns were addressed. * Procedures: P ALLIATIVE FOOT CARE:: Nail debride (72460): D ebridement of five or less mycotic and/or hypertrophic nails, utilizing manual and electric debridement the affected nails were reduced the nails in length and thickness with curettage of debris from nail margins performed as needed. Nail thickness reduced by: 10%. Dystrophic nail trim (G0127) A ll dystrophic nails reduced in length and thickness with curettage of debris from nail margins as needed. * Procedure Codes: 7 3630 X-RAY FOOT (3 views), [place]: [place] [address] DEBRIDE NAIL, 1-5, Modifiers: Q8 G0127 TRIMMING DYSTROPHIC NAILS ANY #, Modifiers: Q8 , 59 * Follow Up: 3 Weeks,prn (Reason: RT foot pain) * Images: * STANT TRACK COACH Sign off status: Completed true * Provider: Zaria Holguin DPM Date: Generated for Kirsten appiah/Nicolasa/Waldoitting on: 0 11/13/2024 09:05 AM CDT History and Physical Notes * HPI (History of Present Illness) Category Sub-Category Detail Notes Category Not es Primary reason for visit: New Problem: 77 year old diabetic female PTO with chief complaint of sharp pain in the RT foot for about 2 months duration that is localized to every surface of the RT heel, plantar,lateral, medial and posterior aspects. Pt reports that she notices the pain before she puts weight on her foot, and it is worse when she puts weight on it. Pt reports a recent hospitalization for very low blood sugar where she required a transfusion. She reports history of a heel spur. She reports that her pain right now is rated as a 10/10. She denies any injury to the foot. Last A1C: pt reports she has not has her A1C measured recently. Pain level: Right foot: 10/10 MA assisting with visit: HPI/Rooming: Toyin Examination Category Sub-Category Detail Notes Category Not es General Examination Mental status: Cooperative, Oriented to person, place and time, Mood and affect: normal, Judgement and intellect: normal with appropriate response to questions Shoes today: Lace-up hiking shoes Exam unchanged from prior visit: with no significant changes in appearance or condition of feet, excluding the following findings noted on exam today of the right foot: No acute edema noted. No ecchymosis noted. Some pain with palpation along the course of the lateral aspect of the ankle and the peroneal tendons. Some pain with palpation of the Achilles tendon. No acute pain with lateral squeeze test of the calcaneus. Some discomfort with palpation along the plantar heel. Pain with manual muscle strength testing against resistance to all muscle groups. Constitutional / Appearance: No acute di stress , Well nourished, Appropriate personal hygiene Lower Extremity VASCULAR: Pulses: DP pul se diminished bilateral; PT pulse absent bilateral Temperature gradient: decreased from pro ximal to distal, bilateral Pedal hair: absent, bilateral Capillary refill at distal toes less sonu n 5 seconds, bilateral Diagnostic Studies: X-rays of right lowe r extremity: 3 views of right foot:No acute fractures or dislocations noted. Diffuse osteopenia noted. Some osteoarthritic changes noted to the ankle joint and subtalar joint. Lower Extremity DERM: Skin: thin, atro phic, no suspicious lesions, no open sores, bilateral Nails: Nail plates of: TA a nd T5 appear elongated, thickened, dystrophic, discolored, with subungual debris. Multiple other nails appear elongated and dystrophic with abnormal shape, periungual debris, subungual hyperkeratosis Hyperkeratotic lesions LEFT foot: no sig nificant hpk lesions noted Hyperkeratotic lesions RIGHT foot: no si gnificant hpk lesions noted
--- OUTSIDE RECORDS SUMMARY | 2024-11-13 09:06 | XMS_ITS | Patient Health Record ---
Author Organization 1 [facility]o [facility] Address [address] [address] [place] [address] Care Team Providers Care Freight Trucker Name Role Phone James Stapleton MD Primary Care Provider Nona rutherford Jaycee Holguin Unavailable [phone] Allergies No Known Allergies Reason For Referral No Information Medications Medication SIG (Take, Route, Frequency, Duration) Notes Start Date End Date Status Ferrous Sulfate Acti ve Farxiga Not-Taking Glimepiride Active CeleBREX Active Coreg Not-Taking Pantoprazole Sodium Active Dapagliflozin Propanediol Not-Taking Pioglitazone HCl Act addis Lidocaine ointment 5% Apply to affected area of foot topical every 4-6 hours prn pain for 60 days 09/28/2022 Not-Taking Spironolactone Activ e Carvedilol Active Lovastatin Active metFORMIN HCl Active Levothyroxine Sodium Active Losartan Potassium A ctive Social History Tobacco Use: Social History Observation Description Date Details (start date - stop date) Former Smoker NA - NA Tobacco Use/Smoking Question Answer Notes Are you a former smoker How long has it been since you last smoked? > 10 years Problems Problem Type SNOMED Code ICD Code Onset Dates Problem Status W/U Status Risk Notes Problem [id number] Type 2 diabetes mellitus with other circulatory complications (E11.59) Active confirmed Problem Type II diabetes mellitus without complication (747362486) Type 2 diabetes mellitus without complication (E11.9) Active confirmed Plan Of Treatment No Information Insurance Providers Payer Name Payer Address Payer Phone Subscriber Number Group Number Insured Name Patient Relationship to Insured Coverage Start Date Coverage End Date [employer] [address] [address] [place] [address] [id number] Zenobia White Self - patient is the insured Medical (General) History Medical History History ICD Code Arthritis, asthma, diabetes, high cholesterol, high blood pressure, migraines, thyroid problems, bleeding ulcer Surgical History Surgery Date(Month/Year)
--- OUTSIDE RECORDS SUMMARY | 2024-11-13 09:06 | XMS_ITS | Clinical Summary ---
Author Organization [facility] Address [address] [place] [address] Care Team Providers Care Tumbler Machine Operator Name Role Phone James Stapleton MD Primary Care Provider [phone] Jose Benavidez MD Unavailable Allergies No known active allergies Medications blood-glucose meter (Blood Glucose Monitoring) kitIndications: Type 2 diabetes mellitus without complication, without long-term current use of insulin ([facility]) 1 kit daily Check blood sugar daily 1 each 1 Active lancets miscIndications :Type 2 diabetes mellitus without complication, without long-term current use of insulin ([facility]) Check blood sugar daily 100 each 3 [...] complication, without long-term current use of insulin ([facility]) 11/23/2018 Assessment & Plan (10/20/2021 9:57 AM [...] RUQ US. Start celebrex 100 mg BID Encounters Date Type Department Care Team Description 11/12/2024 Telephone [facility] at [address] [place] [phone] James Stapleton MD Appointment Request 10/25/2024 Telephone [facility] at [address] [place] [phone] Shayla Velasquez MA Unsuccessful Phone Call 1 (Essence awv) from Last 3 Months Immunizations Immunization Administration Dates Next Due COVID-19 [...] (Arexvy) 04/10/2023 Tdap 02/23/2022 ZOSTER Recombinant 07/13/2022,03/28/2022 Surgical History Surgery Date Site/Laterality Comments DILATION AND CURETTAGE OF UTERUS 07/24/1978 - 07/23/1979 HEMORROIDECTOMY HYSTERECTOMY KNEE SURGERY Right WRIST SURGERY 01/21/1995 - 02/20/1995 Left ROTATOR CUFF REPAIR Right SHOULDER SURGERY 11/21/2017 - 12/21/2017 Right Medical History Medical History Date Comments Hypertension Hyperlipidemia Diabetes mellitus (HCC) Family History Medical History Relation Name Comments Cancer Father Emphysema Father Alzheimer's disease Maternal Grandfather Diabetes Maternal Grandfather Parkinsonism Maternal Grandfather Diabetes Maternal Grandmother Heart disease Maternal Grandmother Hypertension Maternal Grandmother Breast cancer Mother Cancer Mother Stroke Mother No Known Problems Paternal Grandfather No Known Problems Paternal Grandmother Cancer Sister 1 Heart disease Sister 1 Hypertension Sister 1 Hyperlipidemia Sister 2 Thyroid disease Sister 2 Diabetes Sister 3 Hyperlipidemia Sister 3 Hypertension Sister 3 Thyroid disease Sister 3 Heart disease Sister 4 Hyperlipidemia Sister 4 Thyroid disease Sister 4 Relation Name Status Comments Father Maternal Grandfather Maternal Grandmother Mother Paternal Grandfather Paternal Grandmother Sister 1 Sister 2 Sister 3 Alive Sister 4 Alive Social History Tobacco Use Types Packs/Day Years [...] week 05/02/2023 How often do you attend [facility] or restorationism services? More than 4 times per year 05/02/2023 Do you belong to any clubs o r organizations such as sabianism groups, unions, fraternal or athletic groups, or [...] place to sleep or slept in a [place] [facility] [place] facility (including now)? No 05/02/2023 Personal Safety Answer Date Recorded Have you ever been in or are you currently in a harmful physical or emotional relationship or is someone making you feel afraid or unsafe? 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 SERVER DBA Gender Identity Not on file Sexual Orientation Not on file Obstetrics History Para Term AB IAB SAB Ectopic Multiple Livin g Live Births 3 Date Outcome GA Total Labor Labor/2nd/3rd Weight Sex Type Anes PTL Kasandra A1 A5 Name Clin Last Filed Vital Signs Vital Sign Reading Time Taken Comments Blood Pressure 148/88 01/04/2024 9:44 AM CDT Pulse 79 01/04/2024 9:44 AM CDT Temperature 36.5 C (97.7 F) 08/22/2023 9:23 AM SQL SERVER DBA Respiratory Rate 16 01/04/2024 9:44 AM CDT Oxygen Saturation 98% 01/04/2024 9:44 AM CDT Inhaled Oxygen Concentration - - Weight 71.8 kg (158 lb 6.4 oz) 01/04/2024 9:44 A M CDT Height 154.9 cm (5' 1 ) 01/04/2024 9:44 AM CDT Body Mass Index 29.93 01/04/2024 9:44 AM CDT Plan of Treatment Health Maintenance Due Date Last Done Comments Hepatitis C Screening 1945 Hepatitis B Screening 1963 Dilated Eye Exam 01/01/2022 01/01/2021 Covid-19 Vaccine (2023- 5 season) 2024 05/05/2023, 10/02/2022, 05/19/2021, Additional history exists Colon Cancer Screening-FIT 05/02/2024 05/02/2023, Depression Screening 05/18/2024 05/18/2023, 09/29/2022, 02/28/2022, Additional history exists Fall Risk Assessment 05/18/2024 05/18/2023, 05/05/2023, 02/28/2022, Additional history exists Foot Exam 05/18/2024 05/18/2023, 03/2023, 02/28/2022, Additional history exists Well Visit 65+ 05/18/2024 05/18/2023, 02/2022, 04/02/2020, Additional history exists Hemoglobin A1C 08/03/2024 02/01/2024, 07/25, 04/27/2023, Additional history exists Albumin Creatinine Ratio, Urine 08/18/2024 , 01/18/2022 Osteoporosis Screening-Bone Density Scan 11/09/2024 11/09/2022 Lipid Panel 01/31/2025 02/01/2024, 10/0 11/2022, 06/08/2021, Additional history exists eGFR 01/31/2025 02/01/2024, 07/25, 05/05/2023, Additional history exists Influenza Vaccine (Season Ended) 2025 04/10/2023, 04/17/2022, 03/24/2021, Additional history exists DTaP/Tdap/Td Vaccine (2 - Td or Tdap) 02/24/2032 02/23/2022 Pneumococcal vaccine 65+ Completed 05/02/2017, 04/23 Breast Cancer Screening-Mammogram Discontinued 04/07/2022, 04/25/2019, 04/08/2019 Zoster Vaccine Completed 07/13/2022, 03/28/2022 Colon Cancer Screening-CT Colonography Discontinued 05/02/2023 Colon Cancer Screening-Colonoscopy Discontinued 05/02/2023 Colon Cancer Screening-DNA Stool Discontinued 05/02/20 Colon Cancer Screening-Sigmoidoscopy Discontinued 05/02/2023 Procedures Procedure Name Priority Date/Time Associated Diagnosis [...] CREATININE RATIO, URINE Routine 08/18/2023 9:29 AM SQL SERVER DBA Type 2 diabetes mellitus without complication, without [...] A1C 7.9(H) <5.7 % of total Hgb [facility] Comment: For someone without known diabetes, a [...] change in test platforms from the Robbins Senior Oracle Database Developer to the Nilay pepe c503 may have shifted HbA1c results compared to historical results. Based on laboratory validation testing conducted at [facility], the Nilay platform relative to the Robbins [...] LAB BLOOD ORDERABLES Final Re sult [facility] [address] [place] [address] * (ABNORMAL) Lipid panel (02/01/2024 9:36 AM CDT) Cholesterol 155 <200 mg/dL [facility] HDL 45(L) > OR = 50 mg/dL [facility] Triglycerides 119 <150 mg/dL [facility] LDL 88 mg/dL (calc) [facility] Comment: Reference range: <100 Desirable range <100 mg/dL for primary prevention; <70 mg/dL for patients with CHD or diabetic patients with > or = 2 CHD risk factors. LDL-C is now calculated using the Ector calculation, which is a validated novel method providing better accuracy than the Friedewald equation in the estimation of LDL-C. Liu GIBBS et al. ZAC. 2013;310(19): 8634-8684 (http://education.[employer] Collins/faq/BWN442) Chol/HDL ratio 3.4 <5.0 (calc) [facility] Non-HDL, (LDL+VLDL) 110 <130 mg/dL (calc) [facility] Comment: For patients with diabetes plus 1 major ASCVD risk factor, treating to a non-HDL-C goal of <100 mg/dL (LDL-C of <70 mg/dL) is considered a therapeutic option. Blood 02/01/2024 9:36 AM CDT 02/01/2024 9:37 AM CDT Narrative [facility] - 02/01/2024 10:21 PM CDT FASTING:YES FASTING: YES us James Stapleton MD LAB BLOOD ORDERABLES Final Re sult [facility] [address] [place] [phone] * (ABNORMAL) Comprehensive metabolic panel (02/01/2024 9:36 AM CDT) Glucose 123(H) 65 - 99 mg/dL [facility] Comment: Fasting reference interval For someone without known diabetes, a glucose value between 100 and 125 mg/dL is consistent with prediabetes and should be confirmed with a follow-up test. BUN 11 7 - 25 mg/dL [facility] Creatinine 0.81 0.60 - 1.00 mg/dL [facility]fred Lazaro eGFR 75 > OR = 60 mL/min/1.7 3m2 [facility] ManciaSandi L[facility] BUN/creat ratio SEE NOTE: 6 - 22 (calc) [facility] alfred Lazaro Comment: Not Reported: BUN and Creatinine are within reference range. Sodium 137 135 - 146 mmol/L [facility] Lazaro Potassium, pl 4.1 3.5 - 5.3 mmol/L [facility] Blanche alfred Lazaro Chloride 104 98 - 110 mmol/L [facility] CO2 25 20 - 32 mmol/L [facility] Calcium 9.3 8.6 - 10.4 mg/dL [facility] L[facility]aro Protein, sr 6.6 6.1 - 8.1 g/dL [facility] L[facility]aro Albumin 4.1 3.6 - 5.1 g/dL [facility]aro GLOBULIN 2.5 1.9 - 3.7 g/dL (calc) [facility] L[facility]aro Alb/glob ratio 1.6 1.0 - 2.5 (calc) [facility] Bilirubin, total 0.7 0.2 - 1.2 mg/dL [facility] Alk phos 63 37 - 153 U/L [facility] AST 21 10 - 35 U/L [facility] Lazaro ALT (SGPT) 14 6 - 29 U/L [facility] Lazaro Blood 02/01/2024 9:36 AM CDT 02/01/2024 9:37 AM CDT Narrative [facility] - 02/01/2024 10:21 PM CDT FASTING:YES FASTING: YES us James Stapleton MD LAB BLOOD ORDERABLES Final Re sult [facility] [address] [place] [address] * (ABNORMAL) Albumin Creatinine Ratio, Urine (08/18/2023 9:29 AM SQL SERVER DBA) Creatinine, ur 87 20 - 275 mg/dL [...] a diagnostic category. Urine 08/18/2023 9:29 AM SQL SERVER DBA 08/18/2023 9:32 AM SQL SERVER DBA Narrative [facility] - 08/19/2023 12:59 PM SQL SERVER DBA FASTING:YES FASTING: YES us James Stapleton MD LAB URINE ORDERABLES Final Re sult [facility] [address] [place] [address] * COLONOSCOPY (05/02/2023 4:26 PM CDT) Anatomical Region Laterality Modality Other Narrative Procedure Note Jose Benavidez MD - 05/02/2023 4:26 PM CDT [facility] Patient Name: Zenobia White Procedure Date: 05/02/2023 4:26 PM Date of : 1945 Admit Type: Inpatient Age: 77 Gender: Female Note Status: Finalized Attending MD: Jose Benavidez M.D. 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 Medicines: Fentanyl [...] the bowelpreparation was evaluated using the BBPS ([place] BowelPreparation Scale) with scores of: Right Colon [...] not recommended. 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 All rights reserved. The codes documented in this report are preliminary and upon ocean export coordinator reviewmay be revised to meet current compliance requirements. Electronically signed by Jose Benavidez MD Jose Benavidez M.D. 05/02/2023 5:12:06 PM Number of Addenda: 0 Note Initiated On: 05/02/2023 4:26 PM us Jose Benavidez MD ENDOSCOPY PROCEDURES Edited Resu [...] old F with given history of screening. Civil Laboratory Technician/Model: [employer] A (S/N [id number]) CLINICAL INFORMATION: Current height: 60.5 inches Maximum [...] Kathleen Birmingham M.D. TW: TW Report ID: [id number] Reading Location: [id number] Procedure Note Kathleen Birmingham MD - 11/09/2022 EXAM DESCRIPTION: DEXA AXIAL SKELETON BONE DENSITY 1 OR MORE SITES REASON FOR STUDY: 77 y/o year old F with given history of screening. Civil Laboratory Technician/Model: [employer] A (S/N [id number]) CLINICAL INFORMATION: Current height: 60.5 inches Maximum [...] Kathleen Birmingham M.D. TW: LOREN Report ID: [id number] Reading Location: [id number] James Stapleton MD IMG DXA PROCEDURES Final [...] AM - Electronically signed by Karlos Mane M.D. MD: Report ID: [id number] Reading [facility] Narrative 04/07/2022 11:42 AM CDT EXAM DESCRIPTION: [...] has not suspiciously changed. James Stapleton MD IMG MAMMO PROCEDURES Final Re sult from Last 3 Months or Most Recently Relevant to Health Maintenance Insurance [facility] Advance Directives For more information, please contact: [phone] Documents on File Type Date Recorded Patient Sweat Band Sewer Expl anation ADVANCE DIRECTIVE 03/29/2019 * Full Code (Latest Code Status on File) Date Activated Date Inactivated Comments 05/02/2023 3:13 PM 05/05/2023 10:06 PM * Full Code Date Activated Date Inactivated Comments 05/01/2023 1:15 PM 05/02/2023 3:13 PM Care Teams Tumbler Machine Operator Relationship Specialty Start Date End Date James Stapleton MD PCP - General Family Medicine 10/15/18 [place] [address] [place] [address] Consulting Physician Gastroenterology 05/05/23
--- OUTSIDE RECORDS SUMMARY | 2024-11-13 09:06 | XMS_ITS ---
Author Organization 1 OF [facility] Address [address] [place] [address] Care Team Providers Care Bobcat Operator Name Role Phone James Stapleton MD Primary Care Provider Unavailab Jaycee Nova Unavailable [phone] Allergies No Known Allergies REASON FOR VISIT right foot pain Medications Medication SIG (Take, Route, Frequency, Duration) Notes Start Date End Date Status Levothyroxine Sodium Active Losartan Potassium A ctive Farxiga Not-Taking Glimepiride Active Dapagliflozin Propanediol Not-Taking Spironolactone Activ e Carvedilol Active Lovastatin Active metFORMIN HCl Active Pioglitazone HCl Act addis Lidocaine ointment 5% Apply to affected area of foot topical every 4-6 hours prn pain for 60 days 09/28/2022 Not-Taking Ferrous Sulfate Acti ve CeleBREX Active Coreg Not-Taking Pantoprazole Sodium Active Vital Signs Height 61 in 09/27/2023 Weight 164 lbs 09/27/2023 BMI 30.98 kg/m2 09/27/2023 Encounters Encounter Location Date Provider Diagnosis 1 OF [facility] [address] [place] [address] 09/27/2023 Jaycee Holguin Type 2 diabetes henry itus with other circulatory complications E11.59 ; Tendinitis of right foot M77.51 ; Right foot pain M79.671 ; Onychogryphosis L60.2 and Onychodystrophy L60.3 Assessments Encounter Date Diagnosis (ICD Code) Assessment Notes Treatment Notes Treatment Clinical Notes Section Notes 09/27/2023 Type 2 diabetes mellitus with other circulatory complications (ICD-10 - E11.59) Considering the associated comorbidities and physical exam findings today, this patient is at substantial risk of developing serious foot complications in the absence of regular and professional palliative foot care. 09/27/2023 Tendinitis of right foot (ICD-10 - M77.51) Evaluation today included a review of medical history, review of systems, discussion of exam findings, and review of diagnoses and treatment options. She was advised to rest her foot as much as possible. She can ice her foot for 10-15 minutes at a time. It is difficult for her to wear the Cam Walker boot or the ankle brace that she has at home. I discussed the importance of wearing good supportive shoes. Discussed benefits of orthotics which I advised can potentially improve alignment and stability of the lower extremity as well as improve shock absorption of the foot and ankle which may help alleviate symptoms associated with this condition. She purchased prefabricated orthotics today. She would like to call as needed for her next appointment. 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 Tendinitis of right foot Evaluation toda y included a review of medical history, review of systems, discussion of exam findings, and review of diagnoses and treatment options. She was advised to rest her foot as much as possible. She can ice her foot for 10-15 minutes at a time. It is difficult for her to wear the Cam Walker boot or the ankle brace that she has at home. I discussed the importance of wearing good supportive shoes. Discussed benefits of orthotics which I advised can potentially improve alignment and stability of the lower extremity as well as improve shock absorption of the foot and ankle which may help alleviate symptoms associated with this condition. She purchased prefabricated orthotics today. She would like to call as needed for her next appointment. Next Appt Details Follow Up: will call, prn, R cherry: Procedure Notes * Category Sub-Category Detail Notes PALLIATIVE FOOT CARE: Nail debride (92270): Debr idement of five or less mycotic and/or hypertrophic nails, utilizing manual and electric debridement the affected nails were reduced the nails in length and thickness with curettage of debris from nail margins performed as needed. Nail thickness reduced by: 10% Dystrophic nail trim (G0127) All dystrop hic nails reduced in length and thickness with curettage of debris from nail margins as needed DME: Retail DME recommended: Prefab o rthotics, (patient purchased) Progress Notes * Meghann WHITEhDOB:1945 (78 yo F)Acc No.[id number]:09/27/2023 Progress Notes Patient: Zenobia WILD Provider: Zaria Holguin DPM :1945 A ge:78 Y S ex:Female Date:09/27/2023 Address:[address] [place], [place] [id number] Pcp:James Stapleton MD Subjective: * Chief Complaints: * R ight foot pain * HPI: M Azar assisting with visit:: HPI/Rooming: Adarsh chin. Chely scott reason for visit:: Pain level: R ight foot:, . Follow-up: [age] y/o female RTO for f/u of RT foot tendinitis pain, at the last appt tx consisted of advising the pt to return to wearing her CAM walker boot as much as possible, and transitioning into an ankle brace/inserts in a good supportive shoe when her pain improves. T lilian the pt reports she has not been wearing the CAM walker boot because she said it caused her ankle to go numb. She states that she has just been tolerating the pain. She is not taking any medicine for it. S he would also like diabetic foot care performed today.. * ROS: * MULTI-SYSTEM REVIEW:: Nausea, fever or chillls d enies. b urning, tingling,numbness in feet admits. C urrently dealing with infection, flu or open wound: d enies.?Any change in medications since last visit? d enies. A ma changes in medical history/hospitalizations? admits. * Medical History: * Surgical History: N o Surgical History documented. * Hospitalization/Major Diagno stic Procedure: * Family History: Diabetes, blood clots, cancer, high blood pressure, stroke, heart disease. * Medications: T akingFerrous Sulfate Pantoprazole Sodium [...] with appropriate response to questions. Shoes today: s neakers. L ower Extremity VASCULAR: : Pulses: D P pulse diminished bilateral; PT pulse absent bilateral. Temperature gradient: decreased from proximal to distal, bilateral. Pedal hair: a bsent, bilateral. Venous insufficiency edema: M ild, bilateral lower legs.? Capillary refill at distal toes less than 5 seconds, bilateral. L ower Extremity DERM: : Skin: t hin, atrophic, no suspicious lesions, no open sores, bilateral. Nails: N ail plates of:TA and U2dzvetx elongated, thickened, dystrophic, discolored, with subungual debris. Multiple other nails appear elongated and dystrophic with abnormal shape, periungual debris, subungual hyperkeratosis. Hyperkeratotic lesions LEFT foot: no significant hpk lesions noted. Hyperkeratotic lesions RIGHT foot: no significant hpk lesions noted. L ower Extremity NEURO: : General sensation appears i ntact, bilateral. ? L ower Extremity MSK: : Gait S low gait. Muscle strength: d iminished, all 4 quadrants tested, bilateral. Left lower extremity inspection and palpation: N o palpable masses or nodules noted. No significant pain with diffuse palpation of the foot and ankle.. Right lower extremity inspection and palpation: N o palpable masses or nodules noted. Some diffuse discomfort with palpation along the medial and lateral aspects of the ankle. Some pain with palpation along the plantar heel. Minimal discomfort with manual muscle strength testing against resistance to all muscle groups.. Assessment: * Assessment: 1. T ype 2 [...] and review of diagnoses and treatment options. She was advised to rest her foot as much as possible. She can ice her foot for 10-15 minutes at a time. It is difficult for her to wear the Cam Walker boot or the ankle brace that she has at home. I discussed the importance of wearing good supportive shoes. Discussed benefits of orthotics which I advised can potentially improve alignment and stability of the lower extremity as well as improve shock absorption of the foot and ankle which may help alleviate symptoms associated with this condition. She purchased prefabricated orthotics today. She would like to call as needed for her next appointment. * Procedures: P ALLIATIVE FOOT CARE:: Nail debride (37822): D ebridement of five or less mycotic and/or hypertrophic nails, utilizing manual and electric debridement the affected nails were reduced the nails in length and thickness with curettage of debris from nail margins performed as needed. Nail thickness reduced by: 10%. Dystrophic nail trim (G0127) A ll dystrophic nails reduced in length and thickness with curettage of debris from nail margins as needed. D ME:: Retail DME recommended: P refab orthotics, (patient purchased). * Procedure Codes: 1 1720 DEBRIDE NAIL, 1-5, Modifiers: Q8 G0127 TRIMMING DYSTROPHIC NAILS ANY #, Modifiers: Q8 , 59 * Follow Up: w ill call, prn * Images: * Sign off status: Completed true * Provider: Zaria Holguin DPM Date: 0 09/27/2023 Generated for Kirsten appiah/Nicolasa/Carol on: 0 11/13/2024 09:06 AM CDT History and Physical Notes * HPI (History of Present Illness) Category Sub-Category Detail Notes Category Not es Primary reason for visit: Follow-up: 78 y/o female RTO for f/u of RT foot tendinitis pain, at the last appt tx consisted of advising the pt to return to wearing her CAM walker boot as much as possible, and transitioning into an ankle brace/inserts in a good supportive shoe when her pain improves. Today the pt reports she has not been wearing the CAM walker boot because she said it caused her ankle to go numb. She states that she has just been tolerating the pain. She is not taking any medicine for it. She would also like diabetic foot care performed today. Pain level: Right foot:, 8 /10 MA assisting with visit: HPI/Rooming: Salena Examination Category Sub-Category Detail Notes Category Not es General Examination Mental status: Cooperative, Oriented to person, place and time, Mood and affect: normal, Judgement and intellect: normal with appropriate response to questions Shoes today: sneakers Constitutional / Appearance: No acute di stress , Well nourished, Appropriate personal hygiene Lower Extremity VASCULAR: Venous insufficiency e shalom: Mild, bilateral lower legs Pulses: DP pulse diminished bilateral; PT pulse absent bilateral Temperature gradient: decreased from pro ximal to distal, bilateral Pedal hair: absent, bilateral Capillary refill at distal toes less sonu n 5 seconds, bilateral Lower Extremity NEURO: General sensation appears intac t, bilateral Lower Extremity MSK: Muscle strength: diminished , all 4 quadrants tested, bilateral Left lower extremity inspect ion and palpation: No palpable masses or nodules noted. No significant pain with diffuse palpation of the foot and ankle. Right lower extremity inspec tion and palpation: No palpable masses or nodules noted. Vaughn e diffuse discomfort with palpation along the medial and lateral aspects of the ankle. Some pain with palpation along the plantar heel. Minimal discomfort with manual muscle strength testing against resistance to all muscle groups. Gait Slow gait Lower Extremity DERM: Skin: thin, atro phic, [...]
--- OUTSIDE RECORDS SUMMARY | 2024-11-13 09:07 | XMS_ITS ---
Author Organization [facility] OF [facility] Address [address] [address] Care Team Providers Care Physician General Practice Name Role Phone Daya MURRIETA, James Primary Care Provider Unavailab Jaycee Nova Unavailable [phone] REASON FOR VISIT RT foot pain Encounters Encounter Location Date Provider Diagnosis 1 [facility] [address] [address] 06/12/2023 Jaycee Holguin Plan Of Treatment No Information Progress Notes * Jeffrey WHITEOB:1945 (79 yo F)Acc No.[id number]:06/12/2023 Progress Notes Patient: Zenobia WILD Provider: Zaria Holguin DPM :1945 A ge:77 Y S ex:Female Date:06/12/2023 Address:[address] [place] [facility] Pcp:James Stapleton MD Subjective: * Chief Complaints: * 1 . RT foot pain. * Medical History: Objective: * Vitals: Assessment: Plan: * Treatment: * Images: * Electronic signature of Lyndsey Holguin DPM on 11/13/2024 at 09:06 AM CDT Sign off status: Pending * Provider: Zaria Holguin DPM Date: 08/12/2022 Generated for Printi ng/Faabbeyg/eTransmitting on: 0 11/13/2024 09:06 AM CDT
--- OUTSIDE RECORDS SUMMARY | 2024-11-13 09:07 | XMS_ITS | Clinical Summary ---
Author Organization [facility] Address [address] [address] Care Team Providers Care Health Inspector Name Role Phone Unavailable Primary Care Provider Unavailabl e Source Comments [facility],non-owned Affiliates and Associated Physician Practices is amultiple site organization consisting of ambulatory clinics and [place]in [place] and [place]. This disclosure is being madepursuant to the Care Everywhere program and may not contain all information available regarding this patient. Last updated 18.[facility] Social History Tobacco Use Types Packs/Day Years Used Date Smoking Tobacco: Never Assessed Comments Unknown Sex and Gender Information Value Date Recorded Sex Assigned at Not on file Legal Sex Female 8:28 AM CDT Gender Identity Not on file Sexual Orientation Not on file Plan of Treatment Health Maintenance Due Date Last Done Comments BONE DENSITY TESTING 1945 MEDICARE AWV 12 MONTHS 1945 HEPATITIS C SCREENING 08/15/1965 DTAP/TDAP/TD VACCINES (1 - Tdap) 1966 PNEUMOCOCCAL VACCINE 50+ (1 of 2 - PCV) 1966 ZOSTER VACCINE (1 of 2) 1997 Respiratory Syncytial Virus (RSV) Vaccine Pt: or over 60 yrs (1 - 1-dose 75+ series) 2022 COVID-19 VACCINE ( - 2023-2 5 season) 2024 DEPRESSION SCREENING 07/24/2024 INFLUENZA VACCINE (Season Ended) 2025 HEPATITIS B VACCINE Aged Out No longe r eligible based on patient's age to complete this topic HIB VACCINE Aged Out No longer eligi ble based on patient's age to complete this topic HPV VACCINE Aged Out No longer eligi ble based on patient's age to complete this topic MENINGOCOCCAL (Group B) VACC INE SHARED DECISION-MAKING Aged Out No longer eligibl e based on patient's age to complete this topic MENINGOCOCCAL GROUPS A/C/Y/W VACCINE Aged Out No longer eligible b ased on patient's age to complete this topic Insurance [facility] MEDICARE
--- OUTSIDE RECORDS SUMMARY | 2024-11-13 09:07 | XMS_ITS | Data Portability ---
Author Organization [facility] Griselda Oliveira Address [address] [place] [address] Care Team Providers Care Jeeper Operator Name Role Phone SAUL AG Primary Care Provider [phone] Assessment Encounter Date Assessment Date Assessment LastModified by Organization Details LastModified Time 09/17/2024 09/17/2024 continue current therapy. Records from previous PCP. Records from [facility] where she had her abdominal surgery CBC CMP lipid A1c T3-T4 TSH vitamin-D urinary albumin to creatinine ratio. Blood pressure is up a little bit but she says she is nervous seeing a new physician does not want to adjust medicines would like to just see how the next visit blood pressure is and I think that is reasonable follow up with me in 3 months dietary strategies for blood pressure discussed as well as regular walking watch processed foods more fresh fruits and vegetables minimal if any caffeine [id number] Not available 09/19/2024 13:32:05 Plan of Treatment Reminders Order Date Submit Date Provider Last Modified By Organization Details Last Modified Time Details Appointments ANY 15 2024 11:15A Adarsh Ag MD Not available Not available Not available Lab HbA1c (hemoglob in A1c), blood 2024 025 BRODY [facility], [address], [place], [address], 09/18/2024 13:13:02 albumin/c reatinine , mass ratio, urine 2024 025 BRODY [facility], [address], [place], [address], 09/18/2024 13:12:57 vitamin D, 25-hydrox y, total, serum 2024 025 BRODY [facility], [address], [place], [address], 09/18/2024 13:13:07 unlisted lab - T4, free 2024 025 BRODY [facility], [address], [place], [address], 09/18/2024 13:13:00 T3, free, serum or plasma 2024 025 BRODY [facility], [address], [place], [address], 09/18/2024 13:13:06 TSH, ultra-sen sitive, serum 2024 025 BRODY [facility], [address], [place], [address], 09/18/2024 13:13:03 lipid panel, serum 2024 025 BRODY [facility], [address], [place], [address], 09/18/2024 13:12:58 CBC w/ auto diff 2024 025 BRODY [facility], [address], [place], [address], 09/18/2024 13:13:05 CMP, serum or plasma 2024 025 BRODY [facility], [address], [place], [address], 09/18/2024 13:13:01 TSH, serum or plasma 2024 025 BRODY [facility], [address], [place], [address], 11/06/2024 06:46:50 T4, free, serum 2024 025 BRODY [facility], [address], [place], [address], 10/30/2024 06:47:06 T3, free, serum or plasma 2024 025 RONDA [facility], [address], [place], [address], 10/30/2024 06:47:05 Referral None recorded. Procedures None recorded. Surgeries None recorded. Imaging None recorded. Medication Orders None recorded. Patient TargetsNo targets recorded. Patient InstructionsNo instructions recorded. Reason for Referral None Reported. Results Created Date Observation Date Name Description Value Unit Range Abnormal Flag Note LastModifiedBy Organization Detail LastModifiedTime 09/17/1909/18/2024 ALBUM IN/CR EATIN INE RATIO ,URIN E creatinine, urine 34.5 mg/dL notest ab. Not Available [facility] ([facility]) [address] [facility], [place], [address], 09/18/2024 13:12:57 09/17/1909/18/2024 ALBUM IN/CR EATIN INE RATIO ,URIN E albumin, urine 10.9 ug/mL notest ab. Not Available [facility] ([facility]) [address] [facility], [place], [address], 09/18/2024 13:12:57 09/17/1909/18/2024 ALBUM IN/CR EATIN INE RATIO ,URIN E alb/creat ratio 32 mg/g_ creat 0-29 above high normal Mi l: 0 - 29 Moder ately incre ased: 30 - 300 Sever darwin incre ased: >300 Not Available [facility] ([facility]) [address] [facility], [place], [address], 09/18/2024 13:12:57 09/17/1909/18/2024 LIPID PANEL cholesterol, total 176 mg/dL 100-19 9 Not Available [facility] ([facility]) [address] [place], [address], 09/18/2024 13:12:58 09/17/19 25 09/18/2024 LIPID PANEL triglyceride s 156 mg/dL 0-149 above high normal Not Available [facility] ([facility]) [address] [place], [address], 09/18/2024 13:12:58 09/17/19 25 09/18/2024 LIPID PANEL HDL cholesterol 48 mg/dL >39 Not Available [facility] ([facility]) [address] [place], [address], 09/18/2024 13:12:58 09/17/19 25 09/18/2024 LIPID PANEL VLDL cholesterol soheila 27 mg/dL 5-40 Not Available [facility] ([facility]) [address] [place], [address], 09/18/2024 13:12:58 09/17/19 25 09/18/2024 LIPID PANEL LDL chol calc ([facility]) 101 mg/dL 0-99 above high normal Not Available [facility] ([facility]) [address] [place], [address], 09/18/2024 13:12:58 09/17/19 25 09/18/2024 T4, FREE T4,free(dire ct) 0.12 NG/dL 0.82-1 .77 below low normal Not Available [facility] ([facility]) [address] [place], [address], 09/18/2024 13:12:59 09/17/19 25 09/18/2024 COMP. METAB OLIC PANEL (14) glucose 141 mg/dL 70-99 above high normal Not Available [facility] ([facility]) [address] [place], [address], 09/18/2024 13:13:01 09/17/19 25 09/18/2024 COMP. METAB OLIC PANEL (14) BUN 8 mg/dL 8-27 Not Available [facility] ([facility]) [address] [place], [address], 09/18/2024 13:13:01 09/17/19 25 09/18/2024 COMP. METAB OLIC PANEL (14) creatinine 0.91 mg/dL 0.57-1 .00 Not Available [facility] ([facility]) [address] [place], [address], 09/18/2024 13:13:01 09/17/19 25 09/18/2024 COMP. METAB OLIC PANEL (14) eGFR 65 mL/mi n/1.7 3 >59 Not Available [facility] ([facility]) [address] [place], [address], 09/18/2024 13:13:01 09/17/19 25 09/18/2024 COMP. METAB OLIC PANEL (14) BUN/creatini ne ratio 9 12-28 below low normal Not Available [facility] ([facility]) [address] [place], [address], 09/18/2024 13:13:01 09/17/19 25 09/18/2024 COMP. METAB OLIC PANEL (14) sodium 137 mmol/ L 134-14 4 Not Available [facility] ([facility]) [address] [place], [address], 09/18/2024 13:13:01 09/17/19 25 09/18/2024 COMP. METAB OLIC PANEL (14) potassium 4.1 mmol/ L 3.5-5. 2 Not Available [facility] ([facility]) [address] [place], [address], 09/18/2024 13:13:01 09/17/19 25 09/18/2024 COMP. METAB OLIC PANEL (14) chloride 101 mmol/ L 96-106 Not Available [facility] ([facility]) [address] [facility] [place], [address], 09/18/2024 13:13:01 09/17/19 25 09/18/2024 COMP. METAB OLIC PANEL (14) carbon dioxide, total 22 mmol/ L 20-29 Not Available [facility] ([facility]) [address] [facility] [place], [address], 09/18/2024 13:13:01 09/17/19 25 09/18/2024 COMP. METAB OLIC PANEL (14) calcium 9.7 mg/dL 8.7-10 .3 Not Available [facility] ([facility]) [address] [facility] [place], [address], 09/18/2024 13:13:01 09/17/19 25 09/18/2024 COMP. METAB OLIC PANEL (14) protein, total 7.3 g/dL 6.0-8. 5 Not Available [facility] ([facility]) [address] [facility] [place], [address], 09/18/2024 13:13:01 09/17/19 25 09/18/2024 COMP. METAB OLIC PANEL (14) albumin 4.2 g/dL 3.8-4. 8 Not Available [facility] ([facility]) [address] [facility] [place], [address], 09/18/2024 13:13:01 09/17/19 25 09/18/2024 COMP. METAB OLIC PANEL (14) globulin, total 3.1 g/dL 1.5-4. 5 Not Available [facility] ([facility]) [address] [facility] [place], [address], 09/18/2024 13:13:01 09/17/19 25 09/18/2024 COMP. METAB OLIC PANEL (14) bilirubin, total 0.5 mg/dL 0.0-1. 2 Not Available [facility] ([facility]) [address] [place], [address], 09/18/2024 13:13:01 09/17/19 25 09/18/2024 COMP. METAB OLIC PANEL (14) alkaline phosphatase 94 IU/L 44-121 Not Available [facility] ([facility]) [address] [place], [address], 09/18/2024 13:13:01 09/17/19 25 09/18/2024 COMP. METAB OLIC PANEL (14) AST (SGOT) 22 IU/L 0-40 Not Available [facility] ([facility]) [address] [place], [address], 09/18/2024 13:13:01 09/17/19 25 09/18/2024 COMP. METAB OLIC PANEL (14) ALT (SGPT) 11 IU/L 0-32 Not Available [facility] ([facility]) [address] [place], [address], 09/18/2024 13:13:01 09/17/19 25 09/18/2024 HEMOG LOBIN A1C hemoglobin A1C 7.3 % 4.8-5. 6 above high normal Predi abete s: 5.7 - 6.4 Diabe lisa: >6.4 Glyce chantal contr ol for adult s with diabe lisa: <7.0 Not Available [facility] ([facility]) [address] [place], [address], 09/18/2024 13:13:02 09/17/19 25 09/18/2024 TSH TSH 46.200 uIU/m L 0.450- 4.500 above high normal Not Available [facility] ([facility]) [address] [place], [address], 09/18/2024 13:13:03 09/17/19 25 09/18/2024 CBC WITH DIFFE RENTI AL/PL ATELE T WBC 5.7 x10e3 /uL 3.4-10 .8 Not Available [facility] ([facility]) [address] [place], [address], 09/18/2024 13:13:05 09/17/1909/18/2024 CBC WITH DIFFE RENTI AL/PL ATELE T RBC 3.88 x10e6 /uL 3.77-5 .28 Not Available [facility] ([facility]) [address] [place], [address], 09/18/2024 13:13:05 09/17/1909/18/2024 CBC WITH DIFFE RENTI AL/PL ATELE T hemoglobin 11.2 g/dL 11.1-1 5.9 Not Available [facility] ([facility]) [address] [place], [address], 09/18/2024 13:13:05 09/17/1909/18/2024 CBC WITH DIFFE RENTI AL/PL ATELE T hematocrit 34.3 % 34.0-4 6.6 Not Available [facility] ([facility]) [address] [place], [address], 09/18/2024 13:13:05 09/17/1909/18/2024 CBC WITH DIFFE RENTI AL/PL ATELE T MCV 88 fL 79-97 Not Available [facility] ([facility]) [address] [place], [address], 09/18/2024 13:13:05 09/17/1909/18/2024 CBC WITH DIFFE RENTI AL/PL ATELE T MCH 28.9 pg 26.6-3 3.0 Not Available [facility] ([facility]) [address] [place], [address], 09/18/2024 13:13:05 09/17/19 25 09/18/2024 CBC WITH DIFFE RENTI AL/PL ATELE T MCHC 32.7 g/dL 31.5-3 5.7 Not Available [facility] ([facility]) [address] [facility], [place], [address], 09/18/2024 13:13:05 09/17/19 25 09/18/2024 CBC WITH DIFFE RENTI AL/PL ATELE T RDW 14.1 % 11.7-1 5.4 Not Available [facility] ([facility]) [address] [facility], [place], [address], 09/18/2024 13:13:05 09/17/1909/18/2024 CBC WITH DIFFE RENTI AL/PL ATELE T platelets 128 x10e3 /uL 150-45 0 below low normal Not Available [facility] ([facility]) [address] [facility], [place], [address], 09/18/2024 13:13:05 09/17/19 25 09/18/2024 CBC WITH DIFFE RENTI AL/PL ATELE T neutrophils 54 % notest ab. Not Available [facility] ([facility]) [address] [facility], [place], [address], 09/18/2024 13:13:05 09/17/19 25 09/18/2024 CBC WITH DIFFE RENTI AL/PL ATELE T lymphs 36 % notest ab. Not Available [facility] ([facility]) [address] [facility], [place], [address], 09/18/2024 13:13:05 09/17/19 25 09/18/2024 CBC WITH DIFFE RENTI AL/PL ATELE T monocytes 6 % notest ab. Not Available [facility] ([facility]) [address] [facility], [place], [address], 09/18/2024 13:13:05 09/17/19 25 09/18/2024 CBC WITH DIFFE RENTI AL/PL ATELE T eos 3 % notest ab. Not Available [facility] ([facility]) [address] [facility], [place], [address], 09/18/2024 13:13:05 09/17/1909/18/2024 CBC WITH DIFFE RENTI AL/PL ATELE T basos 1 % notest ab. Not Available [facility] ([facility]) [address] [facility], [place], [address], 09/18/2024 13:13:05 09/17/1909/18/2024 CBC WITH DIFFE RENTI AL/PL ATELE T neutrophils (absolute) 3.1 x10e3 /uL 1.4-7. 0 Not Available [facility] ([facility]) [address] [facility], [place], [address], 09/18/2024 13:13:05 09/17/1909/18/2024 CBC WITH DIFFE RENTI AL/PL ATELE T lymphs (absolute) 2.0 x10e3 /uL 0.7-3. 1 Not Available [facility] ([facility]) [address] [facility], [place], [address], 09/18/2024 13:13:05 09/17/19 25 09/18/2024 CBC WITH DIFFE RENTI AL/PL ATELE T monocytes(ab solute) 0.4 x10e3 /uL 0.1-0. 9 Not Available [facility] ([facility]) [address] [facility], [place], [address], 09/18/2024 13:13:05 09/17/19 25 09/18/2024 CBC WITH DIFFE RENTI AL/PL ATELE T eos (absolute) 0.2 x10e3 /uL 0.0-0. 4 Not Available [facility] ([facility]) [address] [facility], [place], [address], 09/18/2024 13:13:05 09/17/19 25 09/18/2024 CBC WITH DIFFE RENTI AL/PL ATELE T baso (absolute) 0.0 x10e3 /uL 0.0-0. 2 Not Available [facility] ([facility]) [address] [place], [address], 09/18/2024 13:13:05 09/17/19 25 09/18/2024 CBC WITH DIFFE RENTI AL/PL ATELE T immature granulocytes 0 % notest ab. Not Available [facility] ([facility]) [address] [place], [address], 09/18/2024 13:13:05 09/17/19 25 09/18/2024 CBC WITH DIFFE RENTI AL/PL ATELE T immature grans (abs) 0.0 x10e3 /uL 0.0-0. 1 Not Available [facility] ([facility]) [address] [facility], [place], [address], 09/18/2024 13:13:05 09/17/19 25 09/18/2024 TRIIO DOTHY MAYO E (T3), FREE triiodothyro nine (T3), free 0.8 pg/mL 2.0-4. 4 below low normal Not Available [facility] ([facility]) [address] [place], [address], 09/18/2024 13:13:06 09/17/1909/18/2024 VITAM IN D, 25-HY DROXY vitamin D, 25-hydroxy 26.6 NG/mL 30.0-1 00.0 below low normal Vitam in D defic iency has been defin ed by the Insti tute of Medic ine and an Endoc rine Socie ty pract ice guide line as a level of serum 25-OH vitam in D less than 20 ng/mL (1,2) . The Endoc rine Socie ty went on to furth er defin e vitam in D insuf ficie ncy as a level betwe en 21 and 29 ng/mL (2). 1. IOM (Inst itute of Medic ine). 2010. Dieta ry refer ence intak es for calci um and D. Washi ngton [place]: The [facility] Press . 2. Salma parks MF, Linda vidal [place], Irene off-F carolinaar i GARDUNO, et al. Evalu ation , treat ment, and preve ntion of vitam in D defic iency : an Endoc rine Socie ty clini soheila pract ice guide line. [facility]; 96(7) :1911 -30. Not Available [facility] ([facility]) [address] [place], [address], 09/18/2024 13:13:07 10/30/19 25 10/30/2024 TRIIO DOTHY MAYO E (T3), FREE triiodothyro nine (T3), free 3.0 pg/mL 2.0-4. 4 Not Available [facility] ([facility]) [address] [place], [address], 10/30/2024 06:47:05 10/30/19 25 10/30/2024 T4,FR EE(DI RECT) T4,free(dire ct) 2.66 NG/dL 0.82-1 .77 above high normal Not Available [facility] ([facility]) [address] [place], [address], 10/30/2024 06:47:06 10/30/19 25 10/30/2024 VITAM IN D, 25-HY DROXY vitamin D, 25-hydroxy 56.0 NG/mL 30.0-1 00.0 Vitam in D defic iency has been defin ed by the Insti tute of Medic ine and an Endoc rine Socie ty pract ice guide line as a level of serum 25-OH vitam in D less than 20 ng/mL (1,2) . The Endoc rine Socie ty went on to furth er defin e vitam in D insuf ficie ncy as a level betwe en 21 and 29 ng/mL (2). 1. IOM (Inst itute of Medic ine). 2010. Dieta ry refer ence intdanilo es for calci um and DVerónica woodruff [place]: The [facility] Press . 2. Salma parks MF, Linda vidal [place], Irene off-F errar i GARDUNO, et al. Evalu ation , treat ment, and preve ntion of vitam in D defic iency : an Endoc rine Socie ty clini soheila pract ice guide line. JC[employer]. 2010; 96(7) :1911 -30. Not Available [facility] ([facility]) [address] [facility], [place], [address], 10/30/2024 09:03:37 10/30/19 25 11/05/2024 THYRO ID STIMU LATIN G HORMO NE TSH-icma 0.25 uu/mL Refer ence Range : Non-P regna nt Adult 0.450 -4.50 0 Pregn tim First Trime ster 0.100 -4.00 0 Secon d Trime ster 0.200 -4.00 0 Third Trime ster 0.300 -4.50 0 Not Available [facility] [address] [place], [address], 11/06/2024 06:46:50 Result Notes None recorded. Problems Name Problem SNOMED Code Status Onset Date Resolution Date Notes Provider Name and Address Organization Details Recorded Time Essential hypertension 62461896 Active 2024 Halle Castro MA null, [place] - [facility] 15:58:26 Type 2 diabetes mellitus 81312704 Active 2024 Halle Castro [place] null, [place] [facility] 5 15:58:26 Thrombocytopen ic disorder 197892853 Active 2024 Saul Ag MD Attn: Bonnie lindquist,[address] [facility], [place], [address], [place] - [facility] 5 23:42:24 Hypothyroidism 34638004 Active 2024 Saul Ag MD Attn: Bonnie lindquist,[address] [facility], [place], [address], [place] [facility] 5 23:42:30 Vitamin D below reference range 172277941 Active 2024 Saul Ag MD Attn: Bonnie lindquist,[address] [facility], [place], [address], [facility] 5 23:43:13 Problem Notes None recorded. Medical Equipment None Reported. Medications Name Sig Start Date Stop Date Status Note LastModified by Organization Details LastModified Time pioglitazo ne 15 mg tablet TAKE 1 TABLET BY MOUTH ONCE DAILY active Not Available Not Available No t Available levothyrox ine 137 mcg tablet TAKE 1 TABLET BY MOUTH ONCE DAILY 09/20 completed see labs 09/17/[address] Ag. Not Available Not Available Not Available carvedilol 6.25 mg tablet TAKE 1 TABLET BY MOUTH TWICE DAILY active Not Available Not Available No t Available acetaminop hen 300 mg-codeine 30 mg tablet TAKE 1 TABLET BY MOUTH 4 TIMES DAILY NEEDED active Not Available Not Available No t Available spironolac tone 25 mg tablet TAKE 1 TABLET BY MOUTH ONCE DAILY active Not Available Not Available No t Available pantoprazo le 40 mg tablet,del ayed release TAKE 1 TABLET BY MOUTH ONCE DAILY active Not Available Not Available No t Available metformin 1,000 mg tablet TAKE 1 TABLET BY MOUTH TWICE DAILY active Not Available Not Available No t Available levothyrox ine 125 mcg tablet Take 1 tablet every day by oral route. 2024 active Not Available Not Available Not Avai lable glimepirid e 4 mg tablet TAKE 1 TABLET BY MOUTH TWICE DAILY active Not Available Not Available No t Available levothyrox ine 150 mcg tablet TAKE 1 TABLET BY MOUTH ONCE DAILY active Not Available Not Available No t Available ergocalcif cassandra (vitamin D2) 1,250 mcg (50,000 unit) capsule TAKE 1 CAPSULE BY MOUTH ONCE A WEEK active Not Available Not Available No t Available lovastatin 20 mg tablet TAKE 1 TABLET BY MOUTH ONCE DAILY active Not Available Not Available No t Available losartan 100 mg tablet TAKE 1 TABLET BY MOUTH ONCE DAILY active Not Available Not Available No t Available Vitals Date Recorded Body height Body mass index (BMI) Body weight Heart rate Oxygen saturation Oxygen saturation in Arterial blood by Pulse oximetry Systolic blood pressure Diastolic blood pressure Provider Name and Address Organization Details Last Updated DateTime 5 154.94 cm 30 kg/m2 82139.1 9 g 64 /min 99 % 99 % 144 mm[Hg] 74 mm[Hg] Suzy Gong [place] - [facility] 15:25:45 Social History Question Answer Notes LastModified by Organizat ion Details LastModified Time Tobacco Smoking Status Former Smoker Quit Aug 1999 Suzy Gong MA null, [place] - [facility] 09/17/2024 15:20:42 What Is Your Level Of Alcohol Consumption? None Information not available 09/17/2024 Are You Blind Or Do You Have Difficulty Seeing? No Information not available 09/17/2024 What Is Your Level Of Caffeine Consumption? Moderate Information not available 09/17/2024 Are You Currently Employed? No Retired Information not available 09/17/2024 Are You Deaf Or Do You Have Serious Difficulty Hearing? No Information not available 09/17/2024 What Type Of Diet Are You Following? REGULAR Information not available 09/17/2024 What Was The Date Of Your Most Recent Tobacco Screening? 09/17/2024 Information not available 09/17/2024 What Is Your Current Pack Years? 30ormorepack years Information not available 09/17/2024 What Is Your Relationship Status? Information not available 09/17/2024 Do You Use Your Seat Belt Or Car Seat Routinely? Yes Information not available 09/17/2024 At What Age Did You Start Smoking Tobacco? 20 Information not available 09/17/2024 How Much Tobacco Do You Smoke? 1 PPD Information not available 09/17/2024 Do You Feel Stressed (tense, Restless, Nervous, Or Anxious, Or Unable To Sleep At Night)? [id number] Information not available 09/17/2024 Do You Use Any Illicit Or Recreational Drugs? No Information not available 09/17/2024 Has Tobacco Cessation Counseling Been Provided? No Information not available 09/17/2024 Do You Or Have You Ever Used Any Other Forms Of Tobacco Or Nicotine? No Information not available 09/17/2024 Sex: Female Functional Status Question Answer Note LastModified by Organization D etails LastModified Time Are you able to care for yourself? Yes Information n ot available 09/17/2024 Mental Status None recorded. Family History Relationship Description Onset Age of this Age Resolved Age Notes LastModified by Organization Details LastModified Time Mother Cerebrovascu lar accident [email or web address] Not available 0 09/17/2024 15:17:32 Mother Malignant tumor of lung bandersonma Not available 08/25 15:17:43 Mother Malignant neoplasm of liver bandersonma Not available 08/25 15:17:52 Mother Blood coagulation disorder bandersonma Not available 08/25 15:18:20 Father Pulmonary emphysema bandersonma Not available 08/25 15:19:01 Medical History Condition Response Coronary Artery Disease N Other N High Blood Pressure Y Atrial Fibrillation N Kidney or Bladder Problems N Thyroid Problems Y GI Problems Y Depression N COPD N Blood Clots N Have you had a mammogram in the last yea r? N Skin Problems N Anemia N Heart Attack (ME) N Anxiety Disorder N Diabetes Y Muscle, Joint, or Bone Problems N Seizures/Epilepsy N Have you had a colonoscopy in the last 1 0 years? N Acid Reflux (GERD) N Cancer N Stroke N Asthma N Allergies N Have you had a PSA blood test in the las t year? N High Cholesterol Y Hepatitis N Liver Disease N Headaches N Heart Failure N Osteoporosis N Gynecological HistoryNo gynecological history recorded. Obstetrics History GPAL:G 0 P 0 0 0 0 Immunizations Vaccine Type Date Status Note Provider Nam e and Address Organization Details Recorded Time Influenza, recombinant, quadrivalent, PF 0 completed Suzy G[place], [place] [facility] 09/17/2024 15:08:30 zoster recombinant 2 completed Suzy G[place] [facility] 09/17/2024 15:08:30 zoster recombinant 2 completed Suzy G[place] [facility] 09/17/2024 15:08:30 Influenza, high-dose, quadrivalent, PF 3 completed Suzy G[place] [facility] 09/17/2024 15:08:30 Influenza, high-dose, quadrivalent, PF 2 completed Suzy G[place] [facility] 09/17/2024 15:08:30 COVID-19, mRNA, LNP-S, PF, 100 mcg/0.5mL dose or 50 mcg/0.25mL dose 1 completed BRAYDON Hess, [place] [facility] 09/17/2024 15:08:30 COVID-19 vaccine, vector-nr, [id number], PF, 0.5 mL 1 completed BRAYDON [place] [facility] 09/17/2024 15:08:30 COVID-19, mRNA, LNP-S, bivalent, PF, 30 mcg/0.3 mL dose 3 completed BRAYDON [place] [facility] 09/17/2024 15:08:30 RSV, recombinant, protein subunit RSVpreF, adjuvant reconstituted, 0.5 mL, PF 3 completed BRAYDON [place] [facility] 09/17/2024 15:08:30 COVID-19, mRNA, LNP-S, PF, jose-sucrose, 30 mcg/0.3 mL 4 completed BRAYDON [place] [facility] 09/17/2024 15:08:30 COVID-19, mRNA, LNP-S, PF, 50 mcg/0.5 mL 3 completed BRAYDON [place] [facility] 09/17/2024 15:08:30 pneumococcal polysaccharide PPV23 7 completed BRAYDON [place] [facility] 09/17/2024 15:08:30 influenza, unspecified formulation 1 completed BRAY[place] [facility] 09/17/2024 15:08:30 Tdap 2 completed BRAYDON [place] [facility] 09/17/2024 15:08:30 Pneumococcal conjugate PCV 13 6 completed BRAYDON [place] [facility] 09/17/2024 15:08:30 Influenza, high-dose, trivalent, PF 6 completed BRAYDON [place] [facility] 09/17/2024 15:08:30 Influenza, high-dose, trivalent, PF 8 completed BRAYDON Hess, [place] - [facility] 09/17/2024 15:08:30 Influenza, high-dose, trivalent, PF 4 completed BRAYDON Hess, NEGIN - [facility] 09/17/2024 15:08:30 Influenza, high-dose, trivalent, PF 9 completed BRAYDON Hess, NEGIN - [facility] 09/17/2024 15:08:30 Influenza, high-dose, trivalent, PF 6 completed BRAYDON Hess, NEGIN - [facility] 09/17/2024 15:08:30 Influenza, high-dose, trivalent, PF 7 completed BRAYDON Hess, NEGIN - [facility] 09/17/2024 15:08:30 Past Encounters Encounter ID Performer Location Encounter Start Date Encounter Closed Date Diagnosis/Indication Diagnosis SNOMED-CT Code Diagnosis ICD10 Code Diagnosis Note [id number] Saul Ag MD [facility] (Adult Med) [address] [place] [phone] 09/17/2024 14:24:15 09/17/2024 16:04:21 Essential hypertension 21853489 I10 Type 2 shiv betes mellitus 51121985 E11.9 Long-term drug therapy 423164925 Z79.899 Hypothyroidism 89124777 E03.9 Hyperlipidemia 64472462 E78.5 Gastroesop hageal reflux disease without esophagitis 567614351 K21.9 Gallstone 566002005 K80. 20 History of peptic ulcer 622213247 Z87.11 [facility] examination [id number] Z00.00 Health Concerns Section Related Observation LastModified by Organization Detai ls LastModified Time None Recorded Concern Status LastModified by Organization Details LastModified Time None Recorded Advance Directives Directive None Recorded Payers None recorded. Notes Date Note Type Note Provider Name and Address Organization Details Recorded Time 09/17/2024 text/html 79-year-old with hypertension. Type 2 diabetes. Hypothyroid. Hyperlipidemia. GERD. Gallstone. Anemia. History of bleeding ulcer treated at [facility] comes in to establish care. Medications carvedilol 6.25 b.i.d. glimepiride 4 mg b.i.d. levothyroxine 137 mcg daily losartan 100 mg half tablet daily lovastatin 20 mg daily metformin 1000 b.i.d. pantoprazole 40 mg daily pioglitazone 15 mg daily spironolactone 25 mg dailyAllergies iron pills cause nauseasurgeries for a bleeding ulcer. Hysterectomy. Appendectomy. Right knee. Right shoulder. Left wristfamily history mother had lung cancerfather cancer type she is not sure aboutsocially does not smoke or drinkunclear about her eye exams but she thinks she is ge-ov-kbxkdvzpia she had a colonoscopy but when she had a bleeding ulcer thinks she is up-to-date with izjirqudodu-mq-mtzz on flu shot unsure of COVID thinks she had shingles vaccinations Saul Ag MD Attn: Accounting[address] [place], [phone], [facility] 09/19/2024 13:32:37 OBGyn Episode No OBEpisode recorded.
[2024-11-13 09:28] LABS: Glucose Point of Care 122 mg/dl (65-105)
--- NOTE | 2024-11-13 11:12 | ECG_ITS ---
Test Date: 2024-11-13 11:52:11 Measurements Intervals [place] Rate: 66 P: -4 DE: 149 QRS: -17 QRSD: 90 T: 35 QT: 393 QTc: 414 Interpretive Statements SINUS RHYTHM DELAYED PRECORDIAL R/S TRANSITION VOLTAGE CRITERIA FOR LVH MINIMAL Q WAVES- HIGH LATERAL LEADS BORDERLINE ECG No previous ECG available for comparison Electronically Signed On 11-13-2024 11:53:52 CDT by Brandon Crouch D.O.
--- NOTE | 2024-11-13 11:30 | ED_ITS ---
HPI - Fall General Chief Complaint: Fall Stated Complaint: fall Time Seen by Provider: 11/13/24 10:55 Source: patient Mode of arrival: EMS Limitations: no limitations History of Present Illness HPI Narrative: This is a 79-year-old female that presents to the emergency department after a fall today. Reports she felt like her right leg gave out on her. She fell to the ground. She does not believe she hit her head. Although she did lose consciousness. Reports when she woke up she had urinated on herself. Reports since she has had right knee pain, mid to low back pain. No history of seizures. Denies vision changes, vomiting, numbness, weakness. Related Data Allergies Allergy/AdvReac Type Severity Reaction Status Date / Time No Known Allergies Allergy Unverified 05/11/15 10:47 Review of Systems 2 Review of Systems: CONSTITUTIONAL: Denies fever EYES: Denies visual changes CARDIOVASCULAR: Denies chest pain RESPIRATORY: Denies dyspnea. GASTROINTESTINAL: Denies vomiting MUSCULOSKELETAL: Report back pain, and myalgia. NEUROLOGIC: Denies numbness, or weakness. All systems reviewed & are unremarkable except as noted in HPI and below PMFSH Past Medical History Medical History (Updated 11/13/24 @ 15:49 by Zaira Yip PA-C) History of hypothyroidism History of diabetes mellitus History of hypertension Social History Social History (Updated 11/13/24 @ 11:34 by Zaira Yip PA-C) Substance use: never Exam 2 Narrative: GENERAL: Well-appearing, well-nourished, and in no acute distress. HEAD: Normocephalic, atraumatic. EYES: PERRLA and EOMI. ENT: Nares clear, no rhinorrhea or epistaxis. Mucous membranes moist. Oropharynx without tonsillar hypertrophy exudate or other lesions. Bilateral TMs pearly hood non-bulging NECK: Supple. No adenopathy or masses. CHEST: Clear to auscultation. No respiratory distress. No wheezes rales or rhonchi HEART: Regular rate and rhythm. No murmur heard. Normal peripheral pulses. ABDOMEN: Soft, nontender, nondistended, normal active bowel sounds. EXTREMITIES: Normal range of motion. No edema or obvious deformity. Strength equal in bilateral upper and lower extremities. Normal DP pulses SKIN: Warm, dry, no rash. NEURO: No focal deficits. Alert and oriented x3. CN II-XII grossly intact PSYCH: Normal mood and affect Course Course Emergency Course: patient updated on workup and recommendation for admission Consultations Consultation #1: spoke with hospitalist about patient and workup who accepts admission Date: 11/13/24 Vital Signs Vital signs: Vital Signs Temperature 98.1 F 11/13/24 08:41 Pulse Rate 65 11/13/24 08:41 Respiratory Rate 16 11/13/24 08:41 Blood Pressure 167/86 H 11/13/24 08:41 Pulse Oximetry 98 11/13/24 08:41 Temperature 98.1 F 11/13/24 08:41 Pulse Rate 74 11/13/24 14:57 Respiratory Rate 15 11/13/24 14:57 Blood Pressure 147/61 H 11/13/24 14:57 Pulse Oximetry 97 11/13/24 14:57 MDM - Fall MDM Narrative Medical decision making narrative: Patient presents to the emergency department for a syncopal episode versus seizure. Reports she felt like her legs gave out on her. She fell to the floor. She did not believe that she hit her head. She did lose consciousness. Reports when she woke up she had urinated on herself. She does endorse a similar episode 1 week ago. Cbc without leukocytosis. Shows mild normocytic anemia hemoglobin 11.6. Metabolic panel without concerning findings. Urine with possible evidence of infection. This will be sent for culture. Patient started on IV antibiotics. She does endorse some dysuria. CT brain and cervical spine, thoracic spine, lumbar spine without acute findings. Chest x- ray without acute cardiopulmonary abnormality. Right knee x-ray shows degenerative changes. Patient did have a low blood sugar while in the ED, this was treated with D50. Patient updated on her workup and recommendation for admission. Spoke with hospitalist about patient and workup who accepts admission Differential Diagnosis Differential diagnosis: Likely syncope, compression fracture, concussion with loss of consciousness and other (Seizure, electrolyte derangement, dehydration, arrhythmia) Lab Data Attestation: I reviewed the patient's lab results. 11/13/24 11:51 11/13/24 11:51 Labs: Lab Results 11/13/24 11/13/24 11/13/24 Range/Units 09:25 11:51 12:06 WBC 5.0 (4.5-10.0) K/mm3 RBC 3.95 L (4.2-5.4) M/mm3 Hgb 11.6 L (12.0-15.0) g/dL Hct 35.9 L (37.0-47.0) % MCV 90.9 (80-100) fl MCH 29.4 (26-34) pg MCHC 32.3 (32-36) g/dl RDW 16.9 H (11.5-14.5) % Plt Count 128 L (150-375) k/mm3 MPV 9.4 (7.4-10.4) fl Immature Gran % (Auto) 0.4 (0-0.5) % Neut % (Auto) 61.7 (45.5-73.1) % Lymph % (Auto) 30.1 (18.3-44.2) % Crowley % (Auto) 6.0 (2.6-8.5) % Eos % (Auto) 1.2 (0-4.4) % Baso % (Auto) 0.6 (0.2-1.2) % Lymph # (Auto) 1.51 (0.9-3.2) K/mm3 Crowley # (Auto) 0.3 (0.1-0.6) K/mm3 Eos # (Auto) 0.1 (0-0.3) K/mm3 Baso # (Auto) 0.0 (0.0-0.1) K/mm3 Abs Immat Gran (auto) 0.02 (0.00-0.031) K/mm3 Absolute Neuts (auto) 3.1 (1.3-6.7) K/mm3 Absolute Nucleated RBC 0.000 (0.0-0.012) K/mm3 Nucleated RBC % 0.0 (0.0-0.2) % Sodium 138 (137-145) mmol/L Potassium 4.4 (3.4-5.0) mmol/L Chloride 105 (98-107) mmol/L Carbon Dioxide 23 (22-30) mmol/L Anion Gap 10 (4-12) mmol/L BUN 16 (7-17) mg/dL Creatinine 0.98 (0.7-1.0) mg/dL Estim Creat Clear Calc 39 ml/min Estimated GFR 55 L (59 - ) Glucose 65 (65-110) mg/dL POC Capillary Glucose 122 H (65-105) mg/dl Lactic Acid 1.1 (0.7-2.0) mmol/L Calcium 9.9 (8.4-10.2) mg/dL Total Bilirubin 0.9 (0.2-1.3) mg/dL AST 32 (14-36) U/L ALT 23 (6-35) U/L Alkaline Phosphatase 76 (38-126) U/L Total Creatine Kinase 49 (30-135) U/L Troponin I < 0.012 (0.000-0.034) ng/mL Total Protein 9.0 H (6.3-8.2) g/dL Albumin 4.8 (3.5-5.1) g/dL Urine Color Yellow (Yellow) Urine Appearance Clear (Clear) Urine pH 5.0 (5.0-9.0) Ur Specific [place] 1.009 (1.001-1.035) Urine Protein Negative (Negative) mg/dL Urine Glucose (UA) Negative (Negative) mg/dL Urine Ketones Negative (Negative) mg/dL Ur Blood (Man) Negative (Negative) Urine Nitrate Positive H (Negative) Urine Bilirubin Negative (Negative) Urine Urobilinogen 0.2 (<2.0) mg/dL Leukocyte Esterase Rfl 2+ H (Negative) PACHECO/UL Urine RBC 0-2 (0-2) /hpf Urine WBC 6-10 H (0-3) /hpf Ur Squamous Epith Cells Few (Few) /hpf Urine Bacteria 4+ H /hpf Urine Casts 0-2 04/23/25 Range/Units 14:51 WBC (4.5-10.0) K/mm3 RBC (4.2-5.4) M/mm3 Hgb (12.0-15.0) g/dL Hct (37.0-47.0) % MCV (80-100) fl MCH (26-34) pg MCHC (32-36) g/dl RDW (11.5-14.5) % Plt Count (150-375) k/mm3 MPV (7.4-10.4) fl Immature Gran % (Auto) (0-0.5) % Neut % (Auto) (45.5-73.1) % Lymph % (Auto) (18.3-44.2) % Crowley % (Auto) (2.6-8.5) % Eos % (Auto) (0-4.4) % Baso % (Auto) (0.2-1.2) % Lymph # (Auto) (0.9-3.2) K/mm3 Crowley # (Auto) (0.1-0.6) K/mm3 Eos # (Auto) (0-0.3) K/mm3 Baso # (Auto) (0.0-0.1) K/mm3 Abs Immat Gran (auto) (0.00-0.031) K/mm3 Absolute Neuts (auto) (1.3-6.7) K/mm3 Absolute Nucleated RBC (0.0-0.012) K/mm3 Nucleated RBC % (0.0-0.2) % Sodium (137-145) mmol/L Potassium (3.4-5.0) mmol/L Chloride (98-107) mmol/L Carbon Dioxide (22-30) mmol/L Anion Gap (4-12) mmol/L BUN (7-17) mg/dL Creatinine (0.7-1.0) mg/dL Estim Creat Clear Calc ml/min Estimated GFR (59 - ) Glucose (65-110) mg/dL POC Capillary Glucose 39 L* (65-105) mg/dl Lactic Acid (0.7-2.0) mmol/L Calcium (8.4-10.2) mg/dL Total Bilirubin (0.2-1.3) mg/dL AST (14-36) U/L ALT (6-35) U/L Alkaline Phosphatase (38-126) U/L Total Creatine Kinase (30-135) U/L Troponin I (0.000-0.034) ng/mL Total Protein (6.3-8.2) g/dL Albumin (3.5-5.1) g/dL Urine Color (Yellow) Urine Appearance (Clear) Urine pH (5.0-9.0) Ur Specific [place] (1.001-1.035) Urine Protein (Negative) mg/dL Urine Glucose (UA) (Negative) mg/dL Urine Ketones (Negative) mg/dL Ur Blood (Man) (Negative) Urine Nitrate (Negative) Urine Bilirubin (Negative) Urine Urobilinogen (<2.0) mg/dL Leukocyte Esterase Rfl (Negative) PCAHECO/UL Urine RBC (0-2) /hpf Urine WBC (0-3) /hpf Ur Squamous Epith Cells (Few) /hpf Urine Bacteria /hpf Urine Casts Imaging Data Radiologist's impression: ITS Impressions Head CT 11/13/24 11:28 Impression: No intracranial hemorrhage, mass, or acute infarct. Atrophy and chronic white matter changes, as above. Knee X-Ray 11/13/24 11:49 Impression: Minimal degenerative change. Chest X-Ray 11/13/24 11:50 Impression: Normal chest. Cervical Spine CT 11/13/24 11:53 IMPRESSION: 1. Severe cervical spondylosis. No acute osseous abnormality. Thoracic/Lumbar Spine CT 11/13/24 12:23 IMPRESSION: No acute osseous abnormality of the thoracic spine. Multilevel degenerative disc disease. CT thoracic lumbar wo con Ordering provider: Zaira Yip PA-C History: 79 years Female with . fall . Comparison: None. Technique: CT lumbar spine without contrast. Automated exposure control and iterative reconstruction technique were employed. The dose-length product was 732.04 mGy-cm. FINDINGS: VERTEBRAE: Normal height and alignment. No subluxation or visible acute fracture. Degenerative changes. DISC SPACES: Narrowing of the disc L2-L3, L3-L4, L4-L5 and L5-S1. Vacuum phenomena is seen in all these levels. Multilevel facet joint disease. T12-L1: No stenosis. L1-L2: No stenosis. L2-L3: No stenosis. Diffuse disc bulge. L3-L4: No stenosis. Diffuse disc bulge with bilateral narrowing of the foramina. L4-L5: No stenosis. Diffuse disc bulge with bilateral narrowing of the foramina. L5-S1: No stenosis. Diffuse disc bulge with bilateral narrowing of the foramina and nerve root compression. PARASPINOUS SOFT TISSUES: Mild atheromatous disease of the abdominal aorta. IMPRESSION: No acute osseous abnormality. Multilevel degenerative disc disease. ECG Data EKG #1: ECG completion date: 11/13/24 EKG Interpretation: normal rate, sinus rhythm, no ST changes and normal QT Critical Care Time Critical Care Time Critical Care Time: No Discharge Plan Discharge Clinical Impression: Syncope and collapse, Hypoglycemia, Acute UTI Patient Disposition: Still a Patient Condition: Stable
[2024-11-13 12:02] LABS: Basophils Percent Auto 0.6 % (0.2-1.2); Eosinophils Absolute Auto 0.1 K/mm3 (0-0.3); Eosinophils Percent Auto 1.2 % (0-4.4); Hematocrit 35.9 % (37.0-47.0); Hemoglobin 11.6 g/dL (12.0-15.0); Immature Granulocyte Absolute 0.02 K/mm3 (0.00-0.031); Immature Granulocyte Percent A 0.4 % (0-0.5); Lymphocytes Absolute Auto 1.51 K/mm3 (0.9-3.2); Lymphocytes Percent Auto 30.1 % (18.3-44.2); Mean Corpuscular HGB Conc 32.3 g/dl (32-36); Mean Corpuscular Hemoglobin 29.4 pg (26-34); Mean Corpuscular Volume 90.9 fl (80-100); Mean Platelet Volume 9.4 fl (7.4-10.4); Monocytes Absolute Auto 0.3 K/mm3 (0.1-0.6); Neutrophils Absolute Auto 3.1 K/mm3 (1.3-6.7); Neutrophils Percent Auto 61.7 % (45.5-73.1); Platelet Count Result 128 k/mm3 (150-375); Red Blood Count 3.95 M/mm3 (4.2-5.4); Red Cell Distribution Width 16.9 % (11.5-14.5)
[2024-11-13 12:11] LABS: Lactic Acid Reflex 1.1 mmol/L (0.7-2.0)
[2024-11-13 12:12] LABS: Alanine Aminotransferase 23 U/L (6-35); Albumin Level 4.8 g/dL (3.5-5.1); Alkaline Phosphatase 76 U/L (38-126); Anion Gap 10 mmol/L (4-12); Aspartate Amino Transferase 32 U/L (14-36); Bilirubin,Total 0.9 mg/dL (0.2-1.3); Blood Urea Nitrogen 16 mg/dL (7-17); Calcium 9.9 mg/dL (8.4-10.2); Carbon Dioxide 23 mmol/L (22-30); Chloride 105 mmol/L (98-107); Creatine Kinase 49 U/L (30-135); Estimated CRCL calculation 39 ml/min; Estimated Glomerular Filt Rate 55; Glucose 65 mg/dL (65-110); Potassium 4.4 mmol/L (3.4-5.0); Sodium 138 mmol/L (137-145)
[2024-11-13 12:15] LABS: Add Urine Microscopic? YES; Appearance Urine Clear (Clear); Bacteria Urine 4+ /hpf; Bilirubin Urine Negative (Negative); Blood Urine Negative (Negative); Color Urine Yellow (Yellow); Glucose Urine UA Negative (Negative); Ketones Urine Negative (Negative); Leukocyte Esterase Ur 2+ LEU/UL (Negative); Nitrate Urine Positive (Negative); Non Pathogenic Casts 0-2; Protein Urine Negative (Negative); RBC Urine 0-2 /hpf (0-2); Specific Grav Ur 1.009 (1.001-1.035); Squamous Epithelial Cell Urine Few /hpf (Few); Urobilinogen Urine 0.2 mg/dL (<2.0)
[2024-11-13 12:24] LABS: Troponin I < 0.012 ng/mL (0.000-0.034)
--- OUTSIDE RECORDS SUMMARY | 2024-11-13 12:55 | XMS_ITS | CONTINUITY OF CARE DOCUMENT ---
Author Name rachel ramos Address Unknown Organization [facility] Address [address] [address] [place] [address] Phone [phone] Care Team Providers Care [employer] Sergeant Name Role Phone Venkat Lemons MD Unavailable [phone] CAMILO YO MD Unavailable PROBLEMS Condition Status [...] In-person encounter Office Visit Venkat Lemons MD [facility] Hyperlipidemia, unspecifiedCHEST PAIN-3/14 NUC NEG EF 61SHORTNESS OF BREATH-3/14 PFT MILD REST - In-person encounter Office Visit Venkat Lemons MD [facility] HYPOTHYROIDISMHyperlipidemi a, unspecifiedDIABETES MELLITUSOBESITYCHEST PAIN-3/14 NUC [...] on Body Mass Index (Ratio) 30.89 kg/m2 [facility] oly [facility] [place] blood pressure, cuff size regular [facility] [place] blood pressure, diastolic 80 mm[Hg] Je ssica N Daniel blood pressure, systolic 160 mm[Hg] Radha haleigh N Daniel oxygen saturation, oximetry 97 % Caty N Daniel respiratory rate E&M 20 /min Caty N Daniel pulse rate 86 /min Caty N Wilso n weight E&M 166.2 [lb_av] Caty N Wils on Body Mass Index (Ratio) 30.48 kg/m2 [facility] [place] blood pressure, diastolic 60 mm[Hg] Je [...] Bird RN blood pressure, systolic 127 mm[Hg] Dmear Bird RN pulse rate 77 /min Demar [...] as percent of blood leukocytes 6.6 % [facility] Monocytes 0.3 CELLS/UL [facility] 0.2 - 1.0 lymphocytes as percent of blood leukocytes 34.6 % [facility] - Absolute Lymphocytes 1.8 CELLS/UL [facility] 0.9 - 3.9 mean platelet volume 11.3 (?) [facility] platelet count 122.0 THOUSAND/ UL [facility] 100.0 - 400.0 mean corpuscular hemoglobin concentration, RBC 32.1 G/DL [facility] 31.0 - 38.0 mean corpuscular hemoglobin, RBC 31.6 pg [facility] 25.0 - 35.0 mean corpuscular volume, RBC 98.6 fL [facility] 75.0 - 100.0 hematocrit, blood 42.1 % [facility] 35.0 - 55.0 hemoglobin, blood 13.5 g/dL [facility] 11.5 - 16.5 erythrocyte count, whole blood 4.3 MILLION/U L [facility] 3.5 - 5.5 iron, serum 114.0 ug/dL [facility] 25.0 - 156.0 iron saturation percent, serum 28.5 % [facility] 20.0 - 50.0 iron binding capacity, total 400.4 ug/dL [facility] 250.0 - 450.0 ferritin, serum 111.8 ng/mL [facility] 13.0 - 150.0 immature granulocytes, percentage of total cells, blood 0.2 % [facility] - nucleated red blood cells as percent of blood leukocytes 0.0 % [facility] - red blood cell (erythrocyte) count, per high power field 0.0 10*3/UL [facility] - eosinophils as percent of blood leukocytes 1.7 % [facility] - neutrophils as percent of blood leukocytes 47.1 % [facility] - Absolute Neutrophils 2.2 CELLS/UL [employer] [...] Low iron binding capacity, total 452.2 ug/dL [facility] 250.0 - 450.0 High platelet count 197 10*3/mm3 Em Ro hematocrit, blood 26.3 % Em Ro triglyceride, serum, fasting 91 mg/dL Em [facility] HDL cholesterol, serum 34 mg/dL [facility] lipoprotein, beta, serum, point, quantitative, calculated 55 mg/dL Em Ro cholesterol, serum 107 mg/dL [facility] thyroid stimulating hormone, serum 0.018 u[IU]/mL [facility] B-type natriuretic peptide 198 pg/mL [facility] alanine aminotransferase (SGPT), serum 30 1/L [facility] aspartate aminotransferase (SGOT), serum 54 1/L [facility] creatinine, serum 0.58 mg/dL [facility] potassium, serum 3.8 mmol/L [facility] sodium, serum 144 mmol/L [facility] HISTORY OF MEDICATION USE Medication Status Instructions [...] active 1 tab daily 6 Shyla Mccarty SOCIAL HISTORY Date Observation Value Provider social history reviewed E&M reviewed Demar Bird RN drug use no Demar Bird RN passive cigarette smoke exposure no Demar Bird RN smoking, year quit 2000 Demra ramey RN social history E&M Marital Status: [...] Payer name Policy type / Coverage type [place] [employer] republic[employer] ID [employer] insurance compan y [id number] [place] [employer] Medicare [id number] TREATMENT PLAN Date Name Performer : H [...] BP: / () & #13;Orders: E KG (CPT-20567) S TR - Adenosine (51519) C omplete Echo (CPT-09368) F ull PFT (*) Venkat Lemons MD [...] Provider Procedure Notes S tatus DLCO - 89844 Venkat Lemons MD complet ed FRC - 59068 Venkat Lemons MD complete d FVC - 57153 Venkat Lemons MD complete d EKG Venkat Lemons MD completed
--- OUTSIDE RECORDS SUMMARY | 2024-11-13 12:55 | XMS_ITS | Clinical Summary ---
Author Organization [facility] Address [address] [place] [address] Care Team Providers Care Operations Developer Name Role Phone Unavailable Primary Care Provider Unavailabl e Source Comments [facility] [employer],non-owned Affiliates and Associated Physician Practices is amultiple site organization consisting of ambulatory clinics and hospital sitesin [place], [place], [place] and [place]. This disclosure is being madepursuant to the Care Everywhere program and may not contain all information available regarding this patient. Last updated 18.[facility] [employer] Social History Tobacco Use Types Packs/Day Years [...] patient's age to complete this topic Insurance [facility] MEDICARE
--- OUTSIDE RECORDS SUMMARY | 2024-11-13 12:55 | XMS_ITS | Referral Summary ---
Author Organization [facility] [address] [facility] Address [address] [place] [address] Care Team Providers Care Data Processing Consultant Name Role Phone James Stapleton MD Primary Care Provider [phone] Jose Benavidez MD Unavailable Encounters Date Type Department Care Team Description 11/12/2024 Telephone [facility] Medical [facility] Family Medicine at [address] [place] [phone] James Stapleton MD Appointment Request 10/25/2024 Telephone [facility] Family Medicine at [address] [place] [address] Shayla Velasquez MA Unsuccessful Phone [...] complication, without long-term current use of insulin ([facility]) 11/23/2018 Assessment & Plan (10/20/2021 9:57 AM [...] often do you attend chur ch or gnosticist services? More than 4 times per year 05/02/2023 Do you belong to any clubs o r organizations such as voodoo groups, unions, fraternal or athletic groups, or [...] place to sleep or slept in a senior living (including now)? No 05/02/2023 Personal Safety Answer Date Recorded Have you ever been in or are you currently in a harmful physical or emotional relationship or is someone making you feel afraid or unsafe? Denies 05/02/2023 Comments No Sex and Gender Information Value Date Recorded Sex Assigned at Not on file Legal Sex Female 11:27 PM LOW PRESSURE BOILER TENDER Gender Identity Not on file Sexual Orientation Not on file Last Filed Vital Signs Vital Sign Reading Time Taken Comments Blood Pressure 148/88 01/04/2024 9:44 AM CDT Pulse 79 01/04/2024 9:44 AM CDT Temperature 36.5 C (97.7 F) 08/22/2023 9:23 AM LOW PRESSURE BOILER TENDER Respiratory Rate 16 01/04/2024 9:44 AM CDT [...] CREATININE RATIO, URINE Routine 08/18/2023 9:29 AM LOW PRESSURE BOILER TENDER Type 2 diabetes mellitus without complication, without [...] A1C 7.9(H) <5.7 % of total Hgb [facility] Comment: For someone without known diabetes, [...] change in test platforms from the Robbins Fork Lift Mechanic to the Nilay pepe c503 may have shifted HbA1c results compared to historical results. Based on laboratory validation testing conducted at [facility], the Nilay platform relative to the Robbins [...] MD LAB BLOOD ORDERABLES Final Re sult [facility] [address] [place] [address] * (ABNORMAL) Lipid panel (02/01/2024 9:36 AM CDT) [facility] Cholesterol 155 <200 mg/dL [facility] alfred Lazaro HDL 45(L) > OR = 50 mg/dL [facility] alfred Lazaro Triglycerides 119 <150 mg/dL [facility] LDL 88 mg/dL (calc) [facility]extS alfred Lazaro Comment: Reference range: <100 Desirable range <100 mg/dL for primary prevention; <70 mg/dL for patients with CHD or diabetic patients with > or = 2 CHD risk factors. LDL-C is now calculated using the Liu-Baldo calculation, which is a validated novel method providing better accuracy than the Friedewald equation in the estimation of LDL-C. Liu GIBBS et al. ZAC. 2013;310(19): 4698-4535 (http://education.[employer].worldhistoryproject/faq/URG186) Chol/HDL ratio 3.4 <5.0 (calc) [facility]ext[facility]i [facility] Non-HDL, (LDL+VLDL) 110 <130 mg/dL (calc) [facility]i Laz[facility] Comment: For patients with diabetes plus 1 major ASCVD risk factor, treating to a non-HDL-C goal of <100 mg/dL (LDL-C of <70 mg/dL) is considered a therapeutic option. Blood 02/01/2024 9:36 AM CDT 02/01/2024 9:37 AM CDT Narrative [facility] - 02/01/2024 10:21 PM CDT FASTING:YES FASTING: YES James Stapleton MD LAB BLOOD ORDERABLES Final Re sult [facility] [address] [place] [address] * (ABNORMAL) Comprehensive metabolic panel (02/01/2024 9:36 AM CDT) [facility] Glucose 123(H) 65 - 99 mg/dL [facility]ext alfred Tejas Comment: Fasting reference interval For someone without known diabetes, a glucose value between 100 and 125 mg/dL is consistent with prediabetes and should be confirmed with a follow-up test. BUN 11 7 - 25 mg/dL [facility] Creatinine 0.81 0.60 - 1.00 mg/dL [facility] eGFR 75 > OR = 60 mL/min/1.7 3m2 [facility] BUN/creat ratio SEE NOTE: 6 - 22 (calc) [facility] Comment: Not Reported: BUN and Creatinine are within reference range. Sodium 137 135 - 146 mmol/L [facility] Potassium, pl 4.1 3.5 - 5.3 mmol/L [facility] Chloride 104 98 - 110 mmol/L [facility] CO2 25 20 - 32 mmol/L [facility] Calcium 9.3 8.6 - 10.4 mg/dL [facility] Protein, sr 6.6 6.1 - 8.1 g/dL [facility] Albumin 4.1 3.6 - 5.1 g/dL [facility] GLOBULIN 2.5 1.9 - 3.7 g/dL (calc) [facility] Alb/glob ratio 1.6 1.0 - 2.5 (calc) [facility] Bilirubin, total 0.7 0.2 - 1.2 mg/dL [facility] Alk phos 63 37 - 153 U/L [facility] AST 21 10 - 35 U/L [facility] ALT (SGPT) 14 6 - 29 U/L [facility] Blood 02/01/2024 9:36 AM CDT 02/01/2024 9:37 AM CDT Narrative [facility] - 02/01/2024 10:21 PM CDT FASTING:YES FASTING: YES James Stapleton MD LAB BLOOD ORDERABLES Final Re sult [facility] [address] [place] [address] * (ABNORMAL) Albumin Creatinine Ratio, Urine (08/18/2023 9:29 AM LOW PRESSURE BOILER TENDER) Creatinine, ur 87 20 - 275 mg/dL [...] a diagnostic category. Urine 08/18/2023 9:29 AM LOW PRESSURE BOILER TENDER 08/18/2023 9:32 AM LOW PRESSURE BOILER TENDER Narrative [facility] - 08/19/2023 12:59 PM LOW PRESSURE BOILER TENDER FASTING:YES FASTING: YES James Stapleton MD LAB URINE ORDERABLES Final Re sult Performing Organization Address City/[facility]/ZIP Co de Phone Number [facility] [address] [address] [phone] * COLONOSCOPY (05/02/2023 4:26 PM CDT) Anatomical Region Laterality Modality Other Narrative Procedure Note Jose Benavidez MD - 05/02/2023 4:26 PM CDT [facility] Endoscopy Lab Patient Name: Zenobia White Procedure Date: 05/02/2023 4:26 PM Date of : 1945 Admit Type: Inpatient Age: 77 Gender: Female Note Status: Finalized Attending MD: Jose Benavidez M.D. Procedure Date: 05/02/2023 Procedure: Colonoscopy Indications: Heme positive stool, Iron deficiency anemiasecondary to chronic blood loss Providers: Jose Benavidez M.D., Honey Yarbrough, SLATE SPLITTING SUPERVISOR (Anesthesia Staff), Awilda Ron, KYRA, Samantha Putnam, Link Knitting Machine Operator Referring MD: Zulma Terrazas M.D. Medicines: Fentanyl [...] the bowelpreparation was evaluated using the BBPS ([place] BowelPreparation Scale) with scores of: Right Colon [...] not recommended. 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 All rights reserved. The codes documented in this report are preliminary and upon creative assistant reviewmay be revised to meet current compliance [...] old F with given history of screening. Valet/Model: PST Tankers A (S/N [id number]) CLINICAL INFORMATION: Current height: 60.5 inches Maximum [...] Kathleen Birmingham M.D. TW: TW Report ID: [id number] Reading Location: [id number] Procedure Note Kathleen Birmingham MD - 11/09/2022 EXAM DESCRIPTION: DEXA AXIAL SKELETON BONE DENSITY 1 OR MORE SITES REASON FOR STUDY: 77 y/o year old F with given history of screening. Valet/Model: PST Tankers A (S/N [id number]) CLINICAL INFORMATION: Current height: 60.5 inches Maximum [...] Kathleen Birmingham M.D. TW: LOREN Report ID: [id number] Reading Location: [id number] us James Stapleton MD IMG DXA PROCEDURES [...] by Karlos Mane M.D., MD: Report ID: [id number] Reading Location: MAMME Narrative 04/07/2022 11:42 AM [...] Most Recently Relevant to Health Maintenance Insurance [facility] Advance Directives For more information, please contact: [phone] Documents on File Type Date Recorded Patient Contract Clerk Automobile Expl anation ADVANCE DIRECTIVE 03/29/2019 * Full Code (Latest Code Status on File) Date Activated Date Inactivated Comments 05/02/2023 3:13 PM 05/05/2023 10:06 PM * Full Code Date Activated Date Inactivated Comments 05/01/2023 1:15 PM 05/02/2023 3:13 PM Care Teams Data Processing Consultant Relationship Specialty Start Date End Date James Stapleton MD PCP - General Family Medicine 10/15/18 [place] [id number] [address] Consulting Physician Gastroenterology 05/05/23
--- OUTSIDE RECORDS SUMMARY | 2024-11-13 12:55 | XMS_ITS | Encounter Summary ---
Author Organization [facility] Healthcare Address [address] [place] [address] Care Team Providers Care Engineering Technical Analyst Name Role Phone James Stapleton MD Primary Care Provider [phone] Jose Benavidez MD Unavailable Reason for Visit * Reason Onset Date Comments Appointment Request 11/12/2024 Encounter Details Date Type Department Care Team (Late st Contact Info) Description 11/12/2024 Telephone [facility] Family Medicine at [address] [address] James Stapleton MD [address] [place] [address] Appointment Request Social History Tobacco Use [...] week 05/02/2023 How often do you attend [facility] health system or pentecostal services? More than 4 times per year 05/02/2023 Do you belong to any clubs o r organizations such as christian groups, unions, fraternal or athletic groups, or [...] place to sleep or slept in a halfway (including now)? No 05/02/2023 Personal Safety Answer Date Recorded Have you ever been in or are you currently in a harmful physical or emotional relationship or is someone making you feel afraid or unsafe? Denies 05/02/2023 Comments No Sex and Gender Information Value Date Recorded Sex Assigned at Not on file Legal Sex Female 11:27 PM MASTER ELECTRICIAN Gender Identity Not on file Sexual Orientation Not on file documented as of this encounter Miscellaneous Notes * Telephone Encounter - Salome Vu - 11/12/2024 1:47 PM CDT LVM to call back and schedule Medicare Physical. documented in this encounter Plan of Treatment Not on file documented as of this encounter Visit Diagnoses Not on filedocumented in this encounter Care Teams Engineering Technical Analyst Relationship Specialty Start Date End Date James Stapleton MD PCP - General Family Medicine 10/15/18 [place] [address] [address] Consulting Physician Gastroenterology 05/05/23 documented as of this encounter
--- OUTSIDE RECORDS SUMMARY | 2024-11-13 12:55 | XMS_ITS | Clinical Summary ---
Author Organization [facility] [address] [facility] Address [address] [place] [address] Care Team Providers Care Wage And Hour Investigator Name Role Phone James Stapleton MD Primary Care Provider [phone] Jose Benavidez MD Unavailable Allergies No known active allergies Medications blood-glucose meter (Blood Glucose Monitoring) kitIndications: Type 2 diabetes mellitus without complication, without long-term current use of insulin ([facility]) 1 kit daily Check blood sugar daily 1 each 1 Active lancets miscIndications :Type 2 diabetes mellitus without complication, without long-term current use of insulin ([facility]) Check blood sugar daily 100 each 3 [...] complication, without long-term current use of insulin ([facility]) 11/23/2018 Assessment & Plan (10/20/2021 [...] Type Department Care Team Description 11/12/2024 Telephone [facility] Medical [facility] Family Medicine at [address] [place] [phone] James Stapleton MD Appointment Request 10/25/2024 Telephone [facility] Family Medicine at [address] [place] [phone] Shayla Velasquez MA Unsuccessful Phone Call [...] week 05/02/2023 How often do you attend [facility] or nondenominational services? More than 4 times per year 05/02/2023 Do you belong to any clubs o r organizations such as holiness groups, unions, fraternal or athletic groups, or [...] place to sleep or slept in a retirement (including now)? No 05/02/2023 Personal Safety Answer Date Recorded Have you ever been in or are you currently in a harmful physical or emotional relationship or is someone making you feel afraid or unsafe? Denies 05/02/2023 Comments No Sex and Gender Information Value Date Recorded Sex Assigned at Not on file Legal Sex Female 11:27 PM BUS AND SYS INTEGRATION SENIOR MANAGER Gender Identity Not on file Sexual Orientation [...] 36.5 C (97.7 F) 08/22/2023 9:23 AM BUS AND SYS INTEGRATION SENIOR MANAGER Respiratory Rate 16 01/04/2024 9:44 AM CDT [...] CREATININE RATIO, URINE Routine 08/18/2023 9:29 AM BUS AND SYS INTEGRATION SENIOR MANAGER Type 2 diabetes mellitus without complication, without [...] A1C 7.9(H) <5.7 % of total Hgb [facility] L[facility]aro Comment: For someone without known diabetes, [...] change in test platforms from the Robbins Neurobiologist to the Nilay pepe c503 may have shifted HbA1c results compared to historical results. Based on laboratory validation testing conducted at [facility], the Nilay platform relative to the Robbins [...] LAB BLOOD ORDERABLES Final Re sult [facility] [address] [place] [address] * (ABNORMAL) Lipid panel (02/01/2024 9:36 AM CDT) Cholesterol 155 <200 mg/dL [facility] alfred [facility] HDL 45(L) > OR = 50 mg/dL [facility] Triglycerides 119 <150 mg/dL [facility] LDL 88 mg/dL (calc) [facility] Comment: Reference range: <100 Desirable range <100 mg/dL for primary prevention; <70 mg/dL for patients with CHD or diabetic patients with > or = 2 CHD risk factors. LDL-C is now calculated using the Ector calculation, which is a validated novel method providing better accuracy than the Friedewald equation in the estimation of LDL-C. Liu GIBBS et al. ZAC. 2013;310(19): 8991-8028 (http://education.Everyone Counts/faq/NTJ810) Chol/HDL ratio 3.4 <5.0 (calc) Juve ManciaAl Lazaro Non-HDL, (LDL+VLDL) 110 <130 mg/dL (calc) [facility]MerleneSandi alfred Lazaro Comment: For patients with diabetes plus 1 major ASCVD risk factor, treating to a non-HDL-C goal of <100 mg/dL (LDL-C of <70 mg/dL) is considered a therapeutic option. Blood 02/01/2024 9:36 AM CDT 02/01/2024 9:37 AM CDT Narrative [facility] - 02/01/2024 10:21 PM CDT FASTING:YES FASTING: YES us James Stapleton MD LAB BLOOD ORDERABLES Final Re sult [facility] [address] [place] [address] * (ABNORMAL) Comprehensive metabolic panel (02/01/2024 9:36 AM CDT) Glucose 123(H) 65 - 99 mg/dL [facility] Comment: Fasting reference interval For someone without known diabetes, a glucose value between 100 and 125 mg/dL is consistent with prediabetes and should be confirmed with a follow-up test. BUN 11 7 - 25 mg/dL [facility] alfred Lazaro Creatinine 0.81 0.60 - 1.00 mg/dL [facility] alrfed Lazaro eGFR 75 > OR = 60 mL/min/1.7 3m2 Ju[facility] ManciaSandi Lazaro BUN/creat ratio SEE NOTE: 6 - 22 (calc) [facility] alfred Lazaro Comment: Not Reported: BUN and Creatinine are within reference range. Sodium 137 135 - 146 mmol/L [facility] alfred Lazaro Potassium, pl 4.1 3.5 - 5.3 mmol/L [facility] Blanche alfred Lazaro Chloride 104 98 - 110 mmol/L [facility] alfred Lazaro CO2 25 20 - 32 mmol/L [facility] alfred Lazaro Calcium 9.3 8.6 - 10.4 mg/dL [facility] alfred Lazaro Protein, sr 6.6 6.1 - 8.1 g/dL [facility] alfred Lazaro Albumin 4.1 3.6 - 5.1 g/dL [facility] alfred Lazaro GLOBULIN 2.5 1.9 - 3.7 g/dL (calc) [facility] alfred Lazaro Alb/glob ratio 1.6 1.0 - 2.5 (calc) [facility] alfred Lazaro Bilirubin, total 0.7 0.2 - 1.2 mg/dL [facility] alfred Lazaro Alk phos 63 37 - 153 U/L [facility] AST 21 10 - 35 U/L [facility] alfred Lazaro ALT (SGPT) 14 6 - 29 U/L [facility] alfred Lazaro Blood 02/01/2024 9:36 AM CDT 02/01/2024 9:37 AM CDT Narrative [facility] - 02/01/2024 10:21 PM CDT FASTING:YES FASTING: YES us James Stapleton MD LAB BLOOD ORDERABLES Final Re sult [facility] [address] [place] [address] * (ABNORMAL) Albumin Creatinine Ratio, Urine (08/18/2023 9:29 AM BUS AND SYS INTEGRATION SENIOR MANAGER) Creatinine, ur 87 20 - 275 mg/dL [...] a diagnostic category. Urine 08/18/2023 9:29 AM BUS AND SYS INTEGRATION SENIOR MANAGER 08/18/2023 9:32 AM BUS AND SYS INTEGRATION SENIOR MANAGER Narrative [facility] - 08/19/2023 12:59 PM BUS AND SYS INTEGRATION SENIOR MANAGER FASTING:YES FASTING: YES us James Stapleton MD LAB URINE ORDERABLES Final Re sult [facility] [address] [place] [address] * COLONOSCOPY (05/02/2023 4:26 PM CDT) Anatomical Region Laterality Modality Other Narrative Procedure Note Jose Benavidez MD - 05/02/2023 4:26 PM CDT [facility] Endoscopy Lab Patient Name: Zenobia White Procedure Date: 05/02/2023 4:26 PM Date of : 1945 Admit Type: Inpatient Age: 77 Gender: Female Note Status: Finalized Attending MD: Jose Benavidez M.D. Procedure Date: 05/02/2023 Procedure: Colonoscopy Indications: Heme positive stool, Iron deficiency anemiasecondary to chronic blood loss Providers: Jose Benavidez M.D., Honey Yarbrough, RADIATOR CORE TESTER (Anesthesia Staff), Awilda Ron RN, Samantha Putnam, Front Desk Lead Referring MD: Zulma Terrazas M.D. Medicines: Fentanyl [...] the bowelpreparation was evaluated using the BBPS ([place]o BowelPreparation Scale) with scores of: Right Colon [...] not recommended. 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 All rights reserved. The codes documented in this report are preliminary and upon principal planner reviewmay be revised to meet current compliance [...] old F with given history of screening. Public Policy Mediator/Model: HoloDiabetica A (S/N [id number]) CLINICAL INFORMATION: Current height: 60.5 inches Maximum [...] Kathleen Birmingham M.D. TW: TW Report ID: [id number] Reading Location: [id number] Procedure Note Kathleen Birmingham MD - 11/09/2022 EXAM DESCRIPTION: DEXA AXIAL SKELETON BONE DENSITY 1 OR MORE SITES REASON FOR STUDY: 77 y/o year old F with given history of screening. Public Policy Mediator/Model: Hologic Horizon A (S/N [id number]) CLINICAL INFORMATION: Current height: 60.5 inches Maximum [...] Kathleen Birmingham M.D. TW: LOREN Report ID: [id number] Reading Location: [id number] James Stapleton MD IMG DXA PROCEDURES Final [...] by Karlos Mane M.D. MD: Report ID: [id number] Reading Location: [facility] Narrative 04/07/2022 11:42 AM CDT EXAM DESCRIPTION: [...] Most Recently Relevant to Health Maintenance Insurance [facility] Advance Directives For more information, please contact: [phone] Documents on File Type Date Recorded Patient Oreman Expl anation ADVANCE DIRECTIVE 03/29/2019 * Full Code (Latest Code Status on File) Date Activated Date Inactivated Comments 05/02/2023 3:13 PM 05/05/2023 10:06 PM * Full Code Date Activated Date Inactivated Comments 05/01/2023 1:15 PM 05/02/2023 3:13 PM Care Teams Wage And Hour Investigator Relationship Specialty Start Date End Date James Stapleton MD PCP - General Family Medicine 10/15/18 [place] [address] [address] [place] [address] Consulting Physician Gastroenterology 05/05/23
[2024-11-13 14:54] LABS: Glucose Point of Care 39 mg/dl (65-105)
--- NOTE | 2024-11-13 14:55 | PC.NURSE ---
This RN checked pt BS at this time, results: 39, discussed w/ Zaira Yip PA-C and given VORB for 50% dextrose IVP. Pt remains alert and on hall monitor, VSS.
[2024-11-13] MEDS: DEXTROSE 50% 25 GM/50 ML SYRINGE (15:15)
[2024-11-13 15:54] LABS: Glucose Point of Care 235 mg/dl (65-105)
--- NOTE | 2024-11-13 16:40 | PM.IMHP ---
H&P: HPI History of Present Illness Date/Time: 11/13/24 16:40 Chief Complaint: Fall. Narrative: This is a very pleasant 79-year-old female with congenital hearing loss (she does have some hearing in the right ear and is adept at reading lips), hypertension, hypothyroidism, and type 2 diabetes mellitus presented to the emergency department via EMS for evaluation after a fall. She felt fine when she got up this morning and while walking to the kitchen to get something to drink ?my knee gave out? and she states that she fell to the ground and landed on her bottom but she reports that she believes that she lost consciousness. She was feeling lightheaded and weak for brief period of time after the event. She mentions having a similar episode last week. Apparently she got out of bed in the morning and the next thing she knew she was waking up on the floor. She does not recall having antecedent symptoms prior to that episode and she did not check her blood sugars thereafter as she apparently does not have a meter at home. She was incontinent of urine with both episodes and felt sweaty when she came to. Luckily she did not sustain any injuries. With further questioning she tells me that she ambulates with a cane but is very active and in fact goes to visit her friend several times a week. She does not drive and walks to her friend's house which is about 4 blocks away. Twice this week while walking home she became short of breath and fatigue which is very unusual for her. She has also noticed some mild dysuria but that is not consistent. She denies headache, fever, cold and flu symptoms, vertigo, visual changes, focal weakness, paresthesias, difficulty swallowing, chest and pleuritic pain, palpitations, shortness of breath, cough, nausea, vomiting, and abdominal pain. No history of seizures, heart disease, or syncope. She has not had any recent change in medications and denies that she could have taken extra medication. In the ED: Vital signs on arrival include a temperature of 98.1?, blood pressure 167/86, pulse 65, respiratory 16, SpO2 90% on room air. Labs were significant for WBC count of 11.6, platelet 128, glucose 235 (it dropped to 39 after she was in the ED for 6 hours and she was given some dextrose), lactic acid 1.1, troponin less than 0.012. Urinalysis was positive for nitrates, 2+ leukocyte esterase, 6 to 10 WBC, and 4+ bacteria. CT of the head and spine did not show any acute findings. Chest x-ray was normal. Right knee x-ray showed minimal degenerative change. She was given ceftriaxone 1 g and she is being admitted in this setting for close monitoring and further workup. Review of Systems Review of Systems: 12 systems were reviewed and are negative except for as per HPI. FOR[facility]LY [facility] Past Medical History Medical History (Updated 11/13/24 @ 19:41 by Aide Doan PA-C) Congenital hearing loss Type 2 diabetes mellitus Hypothyroidism Hypertension Surgical History Surgical History (Updated 11/13/24 @ 19:39 by Aide Doan PA-C) History of open reduction and internal fixation (ORIF) procedure repair left wrist fracture History of appendectomy History of dilation and curettage Status post unilateral salpingo-oophorectomy History of hysterectomy for benign disease Social History Social History (Updated 11/13/24 @ 19:40 by Aide Doan PA-C) Social History: Surrogate medical decision maker: Jaylen Espinoza, gisel. Code status: Full code. Smoking status: Former smoker Tobacco type: cigarettes Alcohol intake: former Substance use: never Do You Feel Safe in your Home?: Yes Lack of Transportation: No Lack of Food: Sometimes True Current Housing: I Do Not Have Housing Concerned About Future Housing: No Difficulty Paying Gas/Electric Bills: No Difficulty Paying for Meds: No Currently Unemployed: No Education: Decline to Answer Difficulty w/ Childcare or Family Care: No Additional living arrangements comments: with 3 children. She lives alone in [place]. 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 Spiritual care concerns: No Meds Home Medications and Allergies Home Medications ?Medication ?Instructions ?Recorded ?Confirmed ?Type carvedilol 6.25 mg tablet 6.25 mg PO BID 11/13/24 11/13/24 History ergocalciferol (vitamin D2) 1,250 1,250 mcg PO WEEKLY 11/13/24 11/13/24 History mcg (50,000 unit) capsule levothyroxine 125 mcg tablet 125 mcg PO QACBREAK 11/13/24 11/13/24 History lovastatin 20 mg tablet 20 mg PO DAILY 11/13/24 11/13/24 History metformin 1,000 mg tablet 500 mg PO BID 11/13/24 11/13/24 History pioglitazone 15 mg tablet 15 mg PO DAILY 11/13/24 11/13/24 History spironolactone 25 mg tablet 25 mg PO DAILY 11/13/24 11/13/24 History Allergies Allergy/AdvReac Type Severity Reaction Status Date / Time No Known Allergies Allergy Verified 11/13/24 17:02 Vital Signs Vital Signs - 24 hr 11/13/24 08:41 11/13/24 09:29 11/13/24 11:49 Temperature 98.1 F Pulse Rate 65 67 60 Respiratory Rate 16 18 17 Blood Pressure 167/86 H 127/95 H 120/108 H Pulse Oximetry 98 100 100 11/13/24 13:07 11/13/24 14:29 11/13/24 14:57 Temperature Pulse Rate 72 78 74 Respiratory Rate 21 H 18 15 Blood Pressure 142/55 H 147/72 H 147/61 H Pulse Oximetry 100 97 97 Exam Narrative: General: Well-developed, nontoxic-appearing female sitting up in bed eating dinner in no distress. Weight: 74 kg. BMI: 30.8. HEENT: Normocephalic, atraumatic. Wearing corrective lenses. Hard of hearing. PERRL, EOMI. Sclera anicteric. Oral mucosa moist. Neck: Supple. No obvious carotid bruits. Respiratory: Lungs are clear to auscultation bilaterally. Cardiovascular: Regular rate and rhythm with S1-S2. Gastrointestinal: Abdomen is soft, nontender, and nondistended with positive bowel sounds. Skin: Warm and dry. Small tick on the right calf was removed intact. No edema, erythema, or bull's eye lesions seen. Extremities: No cyanosis, clubbing, or significant edema. Radial and pedal pulses intact. Neurological: Alert. Cranial nerves 2-12 are grossly intact. No gross focal deficits to casual conversation. Psychiatric: Pleasant and cooperative with normal mood and affect. Judgment and insight intact. H&P: Results Labs Labs: Short CBC 11/13/24 Range/Units 11:51 WBC 5.0 (4.5-10.0) K/mm3 Hgb 11.6 L (12.0-15.0) g/dL Hct 35.9 L (37.0-47.0) % Plt Count 128 L (150-375) k/mm3 BMP 11/13/24 11:51 Sodium 138 Potassium 4.4 Chloride 105 Carbon Dioxide 23 BUN 16 Creatinine 0.98 Glucose 65 Calcium 9.9 Cardiac Enzymes 11/13/24 Range/Units 11:51 Total Creatine Kinase 49 (30-135) U/L Troponin I < 0.012 (0.000-0.034) ng/mL Liver Function 11/13/24 Range/Units 11:51 Total Bilirubin 0.9 (0.2-1.3) mg/dL AST 32 (14-36) U/L ALT 23 (6-35) U/L Alkaline Phosphatase 76 (38-126) U/L Albumin 4.8 (3.5-5.1) g/dL Urine 11/13/24 Range/Units 12:06 Urine Color Yellow (Yellow) Urine Appearance Clear (Clear) Urine pH 5.0 (5.0-9.0) Ur Specific [place] 1.009 (1.001-1.035) Urine Protein Negative (Negative) mg/dL Urine Glucose (UA) Negative (Negative) mg/dL Impressions Head CT 11/13/24 11:28 Impression: No intracranial hemorrhage, mass, or acute infarct. Atrophy and chronic white matter changes, as above. Knee X-Ray 11/13/24 11:49 Impression: Minimal degenerative change. Chest X-Ray 11/13/24 11:50 Impression: Normal chest. Cervical Spine CT 11/13/24 11:53 IMPRESSION: 1. Severe cervical spondylosis. No acute osseous abnormality. Thoracic/Lumbar Spine CT 11/13/24 12:23 IMPRESSION: No acute osseous abnormality of the thoracic spine. Multilevel degenerative disc disease. CT thoracic lumbar wo con Ordering provider: Zaira Yip PA-C History: 79 years Female with . fall . Comparison: None. Technique: CT lumbar spine without contrast. Automated exposure control and iterative reconstruction technique were employed. The dose-length product was 732.04 mGy-cm. FINDINGS: VERTEBRAE: Normal height and alignment. No subluxation or visible acute fracture. Degenerative changes. DISC SPACES: Narrowing of the disc L2-L3, L3-L4, L4-L5 and L5-S1. Vacuum phenomena is seen in all these levels. Multilevel facet joint disease. T12-L1: No stenosis. L1-L2: No stenosis. L2-L3: No stenosis. Diffuse disc bulge. L3-L4: No stenosis. Diffuse disc bulge with bilateral narrowing of the foramina. L4-L5: No stenosis. Diffuse disc bulge with bilateral narrowing of the foramina. L5-S1: No stenosis. Diffuse disc bulge with bilateral narrowing of the foramina and nerve root compression. PARASPINOUS SOFT TISSUES: Mild atheromatous disease of the abdominal aorta. IMPRESSION: No acute osseous abnormality. Multilevel degenerative disc disease. Assessment and Plan Assessment and plan (1) Syncope: Code(s): R55 - Syncope and collapse Status: Acute (2) Hypoglycemia: Code(s): E16.2 - Hypoglycemia, unspecified Status: Acute (3) Urinary tract infection: Code(s): N39.0 - Urinary tract infection, site not specified Status: Acute (4) Type 2 diabetes mellitus: Code(s): E11.9 - Type 2 diabetes mellitus without complications Status: Acute (5) Hypertension: Code(s): I10 - Essential (primary) hypertension Status: Acute (6) Hypothyroidism: Code(s): E03.9 - Hypothyroidism, unspecified Status: Acute Plan The patient presented to the emergency department for evaluation after 2 falls in the last week as detailed in HPI. Labs, imaging, EKG, and all reports were personally reviewed. It sounds as though these falls were related to syncopal episodes though the etiology is not entirely clear. While in the ED today her glucose dropped precipitously and I wonders if she has been having hypoglycemic episodes. She does not have a glucometer at home and will need one prior to discharge. planning division superintendent has been consulted. Earlier this week she had 2 episodes where she got short of breath and fatigue when walking back from her friend's house who lives about 4 blocks away. This is unusual for her and an echocardiogram has been ordered. Monitor on telemetry to rule out cardiac dysrhythmia. Seizures seem unlikely. Continue ceftriaxone for possible urinary tract infection, pending culture. Blood pressures have been stable; check orthostatic vital signs. Hold metformin and pioglitazone for now. Initiate sliding scale insulin, Accu-Cheks, and hypoglycemic protocol. Continue levothyroxine and check TSH. The rest of her home medications will be reviewed and resumed as appropriate. Findings and treatment plan were discussed with the patient. Questions were solicited and answered to satisfaction. The patient's medical management will be taken over by the hospitalist team in a.m. Quality VTE Prophylaxis VTE prophylaxis: pharmacologic ordered (platelets are a bit low and will be monitored) The patient has been admitted under observation status. Hospitalist MIPS Advance Care Plan I have confirmed that the patient's Advanced Care Plan is present, code status is documented, or surrogate decision maker is listed in patient medical record.: Yes Medication Reconciliation I have utilized all available resources to obtain, update and review the patients current medications (includes all prescriptions, OTC, herbals, cannabis, and nutritional supplements).: Yes
--- NOTE | 2024-11-13 17:22 | ADMGEN ---
This patient, Zenobia White, was admitted to Medical Room 345-. Patient/family oriented to hospital policies and general routines including ID bracelet, bed and alarms, visiting hours, pain management, procedures, bathroom and other care routines, personal items, smoking policy, room service/diet, and visiting hours. Information on how to activate the Rapid Response Team has been discussed. Patient/Family are encouraged to report perceived risks to care and to ask questions if they do not understand what they are told or what they should do.
[2024-11-13] MEDS: INSULIN ASPART (*BKC) 100 UNITS/ML SUB-Q (21:27)
[2024-11-13 21:41] LABS: Glucose Point of Care 259 mg/dl (65-105)
[2024-11-13 21:46] LABS: Hemoglobin A1C 6.5 % (<5.7)
[2024-11-14] VITALS (13 sets, daily range): BP systolic 126–146; BP diastolic 49–64; PULSE 78–91; RESP 16–18; TEMP 36.2–36.8; O2SAT 96–98
[2024-11-14] MEDS: LEVOTHYROXINE SODIUM 125 MCG TABLET PO (05:04)
[2024-11-14 05:32] LABS: Hematocrit 32.4 % (37.0-47.0); Hemoglobin 10.7 g/dL (12.0-15.0); Mean Corpuscular Hemoglobin 29.6 pg (26-34); Mean Corpuscular Volume 89.8 fl (80-100); Mean Platelet Volume 9.2 fl (7.4-10.4); Platelet Count Result 101 k/mm3 (150-375); Red Blood Count 3.61 M/mm3 (4.2-5.4); Red Cell Distribution Width 16.9 % (11.5-14.5); White Blood Count 5.3 K/mm3 (4.5-10.0)
[2024-11-14 05:45] LABS: Anion Gap 8 mmol/L (4-12); Blood Urea Nitrogen 15 mg/dL (7-17); Calcium 9.1 mg/dL (8.4-10.2); Carbon Dioxide 24 mmol/L (22-30); Chloride 104 mmol/L (98-107); Estimated CRCL calculation 43 ml/min; Estimated Glomerular Filt Rate > 60; Glucose 93 mg/dL (65-110); Magnesium 1.8 mg/dL (1.6-2.3); Potassium 4.3 mmol/L (3.4-5.0); Sodium 136 mmol/L (137-145)
[2024-11-14 06:14] LABS: Thyroid Stimulating Hormone Reflex 0.021 uIU/mL (0.465-4.68)
[2024-11-14 07:01] LABS: Free T4 Free Thyroxine Reflex 2.24 ng/dL (0.78-2.19)
[2024-11-14 07:58] LABS: Glucose Point of Care 98 mg/dl (65-105)
--- NOTE | 2024-11-14 08:21 | P.PNIM_ITS ---
Progress Note: A&P Assessment and Plan (1) Syncope: Code(s): R55 - Syncope and collapse Status: Acute Assessment and Plan: * CT brain wo con: No intracranial hemorrhage, mass, or acute infarct * C/T/L Spine CT: No acute osseous abnormality * EKG: NSR, LVH, QTc 414 * Glucose: 98, monitor * Monitor orthostatic vitals * Echocardiogram pending (2) Urinary tract infection: Code(s): N39.0 - Urinary tract infection, site not specified Status: Acute Assessment and Plan: - UA: positive for nitrates, 2+ leukocyte esterase, 6 to 10 WBC, and 4+ bacteria - UC obtained on 11/13 - previous micro reviewed - started on rocephin (3) Type 2 diabetes mellitus: Code(s): E11.9 - Type 2 diabetes mellitus without complications Status: Acute Assessment and Plan: - hypoglycemia protocol - POC blood glucose ACHS - home medication - hold metformin and pioglitazone - SSI (4) Hypertension: Code(s): I10 - Essential (primary) hypertension Status: Acute Assessment and Plan: chronic, 146/56 carvedilol 6.25mg (5) Hypothyroidism: Code(s): E03.9 - Hypothyroidism, unspecified Status: Acute Assessment and Plan: Continue levothyroxine Time Spent With Patient Time: Subjective Date/time seen: 11/14/24 08:21 Interval history: 79-year-old female with congenital hearing loss (she does have some hearing in the right ear and is adept at reading lips), hypertension, hypothyroidism, and type 2 diabetes mellitus presented to the emergency department via EMS for evaluation after a fall. 11/14/2024 Patient sitting comfortably in bed at time of exam. At this time, she denies any headaches, dizziness, chest pain, n/v, SOB, or abdominal pain. She does endorse some dysuria that started yesterday and that she is still experiencing today. Likely UTI, culture pending at this time. Will continue empiric UTI tx. Carotid doppler negative. Echo still pending. Review of Systems Review of Systems: 12 systems were reviewed and are negativ e except for as per HPI. Exam Narrative: General: Well-developed, nontoxic-appearing female sitting up in bed eating dinner in no distress. Weight: 74 kg. BMI: 30.8. HEENT: Normocephalic, atraumatic. Wearing corrective lenses. Hard of hearing. PERRL, EOMI. Sclera anicteric. Oral mucosa moist. Neck: Supple. No obvious carotid bruits. Respiratory: Lungs are clear to auscultation bilaterally. Cardiovascular: Regular rate and rhythm with S1-S2. Gastrointestinal: Abdomen is soft, nontender, and nondistended with positive bowel sounds. Skin: Warm and dry. Small tick on the right calf was removed intact. No edema, erythema, or bull's eye lesions seen. Extremities: No cyanosis, clubbing, or significant edema. Radial and pedal pulses intact. Neurological: Alert. Cranial nerves 2-12 are grossly intact. No gross focal deficits to casual conversation. Psychiatric: Pleasant and cooperative with normal mood and affect. Judgment and insight intact. Objective Data Vital Signs Vital Signs: Vital Signs - 24 hr 11/13/24 08:41 11/13/24 09:29 11/13/24 11:49 Temperature 98.1 F Pulse Rate 65 67 60 Respiratory Rate 16 18 17 Blood Pressure 167/86 H 127/95 H 120/108 H Pulse Oximetry 98 100 100 Oxygen Delivery 11/13/24 13:07 11/13/24 14:29 11/13/24 14:57 Temperature Pulse Rate 72 78 74 Respiratory Rate 21 H 18 15 Blood Pressure 142/55 H 147/72 H 147/61 H Pulse Oximetry 100 97 97 Oxygen Delivery 11/13/24 16:46 11/13/24 20:00 11/13/24 20:00 Temperature Pulse Rate 87 84 Respiratory Rate 20 Blood Pressure 143/59 H Pulse Oximetry 100 Oxygen Delivery Room Air 11/13/24 20:18 11/13/24 20:21 11/13/24 20:26 Temperature 97.2 F L Pulse Rate 80 84 90 Respiratory Rate 18 Blood Pressure 139/47 L 139/56 L 133/48 L Pulse Oximetry 97 98 97 Oxygen Delivery 11/14/24 00:00 11/14/24 00:00 11/14/24 04:00 Temperature 98.1 F 98.1 F Pulse Rate 81 79 87 Respiratory Rate 16 16 Blood Pressure 141/56 H 146/56 H Pulse Oximetry 97 97 Oxygen Delivery 11/14/24 04:00 Temperature Pulse Rate 80 Respiratory Rate Blood Pressure Pulse Oximetry Oxygen Delivery Intake/Output Intake/Output: Intake & Output 11/11/24 11/12/24 11/13/24 11/14/24 23:59 23:59 23:59 23:59 Intake Total 50 250 Output Total 500 Balance 50 -250 Meds/Results Medications: Active Medications Generic Name Dose Route Start Last Admin Trade Name Freq PRN Reason Stop Dose Admin Acetaminophen 650 mg 11/13/24 19:45 Acetaminophen 325 Mg Tablet PO Q6H PRN Mild Pain (1-3) or Fever Carvedilol 6.25 mg 11/14/24 09:00 Carvedilol 6.25 Mg Tablet PO Q12HR [facility] Dextrose 12.5 gm 11/13/24 14:54 Dextrose 50% 25 Gm/50 Ml Syringe IV PUSH PRN PRN Hypoglycemia Protocol Enoxaparin Sodium 40 mg 11/14/24 09:00 Enoxaparin 40 Mg/0.4 Ml Syringe SUB-Q DAILY [facility] Glucagon 1 mg 11/13/24 14:54 Glucagon For Inj 1 Mg Vial IM PRN PRN Hypoglycemia Protocol Glucose 15 gm 11/13/24 14:54 Glucose Oral Gel 15 Gm Of Glucse In 37.5 Gm Tube PO PRN PRN Hypoglycemia Protocol Dextrose 1,000 mls @ 100 mls/hr 11/13/24 14:54 Dextrose 5% 1,000 Ml IVPB PRN PRN Hypoglycemia Protocol Ceftriaxone Sodium 1 gm in 50 mls @ 100 mls/hr 11/14/24 13:00 Rocephin 1 Gm/Ns 50 Ml IVPB Q24H [facility] Insulin Aspart 2 - 5 units 11/14/24 08:00 Insulin Aspart (*Bkc) 100 Units/Ml SUB-Q TIDWM [facility] Protocol Insulin Aspart 1 - 2 units 11/13/24 21:00 11/13/24 21:27 Insulin Aspart (*Bkc) 100 Units/Ml SUB-Q 1 units HS [facility] Administration Protocol Levothyroxine Sodium 125 mcg 11/13/24 06:30 11/14/24 05:04 Levothyroxine Sodium 125 Mcg Tablet PO 125 mcg DAILY@0630 [facility] Administration Lovastatin 20 mg 11/14/24 09:00 Lovastatin 20 Mg Tablet PO DAILY [facility] Perflutren Lipid Microsphere 0 ml 11/13/24 19:45 Perflutren Lipid Microspheres 1.5 Ml Vial Diluted To 10 Ml Total Volume IV PUSH 11/16/24 19:45 ONCE PRN adequate visualization Protocol Spironolactone 25 mg 11/14/24 09:00 Spironolactone 25 Mg Tablet PO DAILY [facility] Radiology Results: ITS Impressions Head CT 11/13/24 11:28 Impression: No intracranial hemorrhage, mass, or acute infarct. Atrophy and chronic white matter changes, as above. Knee X-Ray 11/13/24 11:49 Impression: Minimal degenerative change. Chest X-Ray 11/13/24 11:50 Impression: Normal chest. Cervical Spine CT 11/13/24 11:53 IMPRESSION: 1. Severe cervical spondylosis. No acute osseous abnormality. Thoracic/Lumbar Spine CT 11/13/24 12:23 IMPRESSION: No acute osseous abnormality of the thoracic spine. Multilevel degenerative disc disease. CT thoracic lumbar wo con Ordering provider: Zaira Yip PA-C History: 79 years Female with . fall . Comparison: None. Technique: CT lumbar spine without contrast. Automated exposure control and iterative reconstruction technique were employed. The dose-length product was 732.04 mGy-cm. FINDINGS: VERTEBRAE: Normal height and alignment. No subluxation or visible acute fracture. Degenerative changes. DISC SPACES: Narrowing of the disc L2-L3, L3-L4, L4-L5 and L5-S1. Vacuum phenomena is seen in all these levels. Multilevel facet joint disease. T12-L1: No stenosis. L1-L2: No stenosis. L2-L3: No stenosis. Diffuse disc bulge. L3-L4: No stenosis. Diffuse disc bulge with bilateral narrowing of the foramina. L4-L5: No stenosis. Diffuse disc bulge with bilateral narrowing of the foramina. L5-S1: No stenosis. Diffuse disc bulge with bilateral narrowing of the foramina and nerve root compression. PARASPINOUS SOFT TISSUES: Mild atheromatous disease of the abdominal aorta. IMPRESSION: No acute osseous abnormality. Multilevel degenerative disc disease. Labs Labs: Laboratory Results - last 24 hr 11/13/24 11/13/24 11/13/24 09:25 11:51 12:06 WBC 5.0 RBC 3.95 L Hgb 11.6 L Hct 35.9 L MCV 90.9 MCH 29.4 MCHC 32.3 RDW 16.9 H Plt Count 128 L MPV 9.4 Immature Gran % (Auto) 0.4 Neut % (Auto) 61.7 Lymph % (Auto) 30.1 Nance % (Auto) 6.0 Eos % (Auto) 1.2 Baso % (Auto) 0.6 Lymph # (Auto) 1.51 Nance # (Auto) 0.3 Eos # (Auto) 0.1 Baso # (Auto) 0.0 Abs Immat Gran (auto) 0.02 Absolute Neuts (auto) 3.1 Absolute Nucleated RBC 0.000 Nucleated RBC % 0.0 Sodium 138 Potassium 4.4 Chloride 105 Carbon Dioxide 23 Anion Gap 10 BUN 16 Creatinine 0.98 Estim Creat Clear Calc 39 Estimated GFR 55 L Glucose 65 POC Capillary Glucose 122 H Hemoglobin A1c 6.5 H Lactic Acid 1.1 Calcium 9.9 Magnesium Total Bilirubin 0.9 AST 32 ALT 23 Alkaline Phosphatase 76 Total Creatine Kinase 49 Troponin I < 0.012 Total Protein 9.0 H Albumin 4.8 TSH (Reflex) Free T4 Urine Color Yellow Urine Appearance Clear Urine pH 5.0 Ur Specific [place] 1.009 Urine Protein Negative Urine Glucose (UA) Negative Urine Ketones Negative Ur Blood (Man) Negative Urine Nitrate Positive H Urine Bilirubin Negative Urine Urobilinogen 0.2 Leukocyte Esterase Rfl 2+ H Urine RBC 0-2 Urine WBC 6-10 H Ur Squamous Epith Cells Few Urine Bacteria 4+ H Urine Casts 0-2 11/13/24 11/13/24 11/13/24 14:51 15:47 20:29 WBC RBC Hgb Hct MCV MCH MCHC RDW Plt Count MPV Immature Gran % (Auto) Neut % (Auto) Lymph % (Auto) Nance % (Auto) Eos % (Auto) Baso % (Auto) Lymph # (Auto) Nance # (Auto) Eos # (Auto) Baso # (Auto) Abs Immat Gran (auto) Absolute Neuts (auto) Absolute Nucleated RBC Nucleated RBC % Sodium Potassium Chloride Carbon Dioxide Anion Gap BUN Creatinine Estim Creat Clear Calc Estimated GFR Glucose POC Capillary Glucose 39 L* 235 H 259 H Hemoglobin A1c Lactic Acid Calcium Magnesium Total Bilirubin AST ALT Alkaline Phosphatase Total Creatine Kinase Troponin I Total Protein Albumin TSH (Reflex) Free T4 Urine Color Urine Appearance Urine pH Ur Specific [place] Urine Protein Urine Glucose (UA) Urine Ketones Ur Blood (Man) Urine Nitrate Urine Bilirubin Urine Urobilinogen Leukocyte Esterase Rfl Urine RBC Urine WBC Ur Squamous Epith Cells Urine Bacteria Urine Casts 11/14/24 11/14/24 05:24 07:54 WBC 5.3 RBC 3.61 L Hgb 10.7 L Hct 32.4 L MCV 89.8 MCH 29.6 MCHC 33.0 RDW 16.9 H Plt Count 101 L MPV 9.2 Immature Gran % (Auto) Neut % (Auto) Lymph % (Auto) Nance % (Auto) Eos % (Auto) Baso % (Auto) Lymph # (Auto) Nance # (Auto) Eos # (Auto) Baso # (Auto) Abs Immat Gran (auto) Absolute Neuts (auto) Absolute Nucleated RBC Nucleated RBC % Sodium 136 L Potassium 4.3 Chloride 104 Carbon Dioxide 24 Anion Gap 8 BUN 15 Creatinine 0.84 Estim Creat Clear Calc 43 Estimated GFR > 60 Glucose 93 POC Capillary Glucose 98 Hemoglobin A1c Lactic Acid Calcium 9.1 Magnesium 1.8 Total Bilirubin AST ALT Alkaline Phosphatase Total Creatine Kinase Troponin I Total Protein Albumin TSH (Reflex) 0.021 L Free T4 2.24 H Urine Color Urine Appearance Urine pH Ur Specific [place] Urine Protein Urine Glucose (UA) Urine Ketones Ur Blood (Man) Urine Nitrate Urine Bilirubin Urine Urobilinogen Leukocyte Esterase Rfl Urine RBC Urine WBC Ur Squamous Epith Cells Urine Bacteria Urine Casts Quality VTE Prophylaxis VTE prophylaxis: pharmacologic ordered (platelets are a bit low and will be monitored)
[2024-11-14] MEDS: ENOXAPARIN 40 MG/0.4 ML SYRINGE SUB-Q (09:41)
[2024-11-14] MEDS: SPIRONOLACTONE 25 MG TABLET PO (09:41)
[2024-11-14] MEDS: carvediloL 6.25 MG TABLET PO ×2 (09:41→22:36)
[2024-11-14] MEDS: LOVASTATIN 20 MG TABLET PO (09:41)
[2024-11-14 11:50] LABS: Glucose Point of Care 240 mg/dl (65-105)
[2024-11-14] MEDS: INSULIN ASPART (*BKC) 100 UNITS/ML SUB-Q ×2 (12:36→22:42)
--- NOTE | 2024-11-14 13:29 | P.CONCA_ITS ---
Assessment and Plan Assessment and plan (1) Syncope: Code(s): R55 - Syncope and collapse Status: Acute Plan 79-year-old woman with congenital hearing loss (has some hearing in right ear and uses lip reading), hypertension, hypothyroidism, and type 2 diabetes presented with syncope Syncope -repeat EKG obtain a transthoracic echocardiogram -if unremarkable, can be re-evaluated outpatient for possible Holter when she completes her antibiotic course History of Present Illness History of Present Illness Consult date/time: 11/14/24 13:29 Requesting physician: Aide Doan PA-C Consult reason: Other Reason For Visit: Syncope Narrative: 79-year-old woman with congenital hearing loss (has some hearing in right ear and uses lip reading), hypertension, hypothyroidism, and type 2 diabetes presented with syncope. She had 2 separate events both of which involved her ambulating and suddenly feeling like her knees became weak leading to a fall followed by loss of consciousness after she fell. She had not noticed any other cardiopulmonary symptoms such as chest discomfort, worsening shortness of breath, and palpitations prior to these events. However she has noticed more exertional shortness of breath in the last few weeks. She also had an episode of chest tightness yesterday in the emergency room. No orthopnea. She had other episodes of these where she is working with physical therapy in a group session when she feels her knees becoming weak and she quickly grafts on to her rolling walker to steady herself. Currently she had has not had any further episodes of chest discomfort. She is currently admitted for further evaluation of her syncope as well as treatment for urinary tract infection. Review of Systems 2 Cardiovascular: Cardiovascular: Reports as per HPI Respiratory: Respiratory: Reports as per HPI [facility] Past Medical History Medical History (Updated 11/13/24 @ 19:41 by Aide Doan PA-C) Congenital hearing loss Type 2 diabetes mellitus Hypothyroidism Hypertension Surgical History Surgical History (Updated 11/13/24 @ 19:39 by Aide Doan PA-C) History of open reduction and internal fixation (ORIF) procedure repair left wrist fracture History of appendectomy History of dilation and curettage Status post unilateral salpingo-oophorectomy History of hysterectomy for benign disease Social History Social History (Updated 11/13/24 @ 19:40 by Aide Doan PA-C) Social History: Surrogate medical decision maker: Jaylen Espinoza, son. Code status: Full code. Smoking status: Former smoker Tobacco type: cigarettes Alcohol intake: former Substance use: never Do You Feel Safe in your Home?: Yes Lack of Transportation: No Lack of Food: Sometimes True Current Housing: I Do Not Have Housing Concerned About Future Housing: No Difficulty Paying Gas/Electric Bills: No Difficulty Paying for Meds: No Currently Unemployed: No Education: Decline to Answer Difficulty w/ Childcare or Family Care: No Additional living arrangements comments: with 3 children. She lives alone in [place]. 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 Spiritual care concerns: No Meds Home Medications and Allergies Home Medications ?Medication ?Instructions ?Recorded ?Confirmed ?Type carvedilol 6.25 mg tablet 6.25 mg PO BID 11/13/24 11/13/24 History ergocalciferol (vitamin D2) 1,250 1,250 mcg PO WEEKLY 11/13/24 11/13/24 History mcg (50,000 unit) capsule levothyroxine 125 mcg tablet 125 mcg PO QACBREAK 11/13/24 11/13/24 History lovastatin 20 mg tablet 20 mg PO DAILY 11/13/24 11/13/24 History metformin 1,000 mg tablet 500 mg PO BID 11/13/24 11/13/24 History pioglitazone 15 mg tablet 15 mg PO DAILY 11/13/24 11/13/24 History spironolactone 25 mg tablet 25 mg PO DAILY 11/13/24 11/13/24 History Allergies Allergy/AdvReac Type Severity Reaction Status Date / Time No Known Allergies Allergy Verified 11/13/24 17:02 Vital Signs Vital Signs - 24 hr 11/13/24 14:29 11/13/24 14:57 11/13/24 16:46 Temperature Pulse Rate 78 74 87 Respiratory Rate 18 15 20 Blood Pressure 147/72 H 147/61 H 143/59 H Pulse Oximetry 97 97 100 Oxygen Delivery 11/13/24 20:00 11/13/24 20:00 11/13/24 20:18 Temperature 36.2 C L Pulse Rate 84 80 Respiratory Rate 18 Blood Pressure 139/47 L Pulse Oximetry 97 Oxygen Delivery Room Air 11/13/24 20:21 11/13/24 20:26 11/14/24 00:00 Temperature Pulse Rate 84 90 81 Respiratory Rate Blood Pressure 139/56 L 133/48 L Pulse Oximetry 98 97 Oxygen Delivery 11/14/24 00:00 11/14/24 04:00 11/14/24 04:00 Temperature 36.7 C 36.7 C Pulse Rate 79 87 80 Respiratory Rate 16 16 Blood Pressure 141/56 H 146/56 H Pulse Oximetry 97 97 Oxygen Delivery 11/14/24 08:00 11/14/24 08:05 11/14/24 09:41 Temperature 36.2 C L Pulse Rate 81 80 80 Respiratory Rate 18 Blood Pressure 126/52 L Pulse Oximetry 96 Oxygen Delivery 11/14/24 11:17 11/14/24 11:17 Temperature 36.2 C L 36.3 C L Pulse Rate 84 84 Respiratory Rate 18 18 Blood Pressure 134/58 L 132/49 L Pulse Oximetry 96 98 Oxygen Delivery Exam 2 Const: General: comfortable HENMT: Mouth: Yes moist mucous membranes Eyes: EOM: EOMs intact bilaterally Neck: Neck: no JVD Resp: Effort & Inspection: normal respiratory effort Auscultation: clear to auscultation bilaterally Cardio: Rate: regular rate Rhythm: regular rhythm Extrem: General: no pedal edema Results Labs and Meds 11/14/24 05:24 11/14/24 05:24 Lab results: CBC 11/14/24 Range/Units 05:24 WBC 5.3 (4.5-10.0) K/mm3 RBC 3.61 L (4.2-5.4) M/mm3 Hgb 10.7 L (12.0-15.0) g/dL Hct 32.4 L (37.0-47.0) % Plt Count 101 L (150-375) k/mm3 Comprehensive Metabolic Panel 11/14/24 Range/Units 05:24 Sodium 136 L (137-145) mmol/L Potassium 4.3 (3.4-5.0) mmol/L Chloride 104 (98-107) mmol/L Carbon Dioxide 24 (22-30) mmol/L BUN 15 (7-17) mg/dL Creatinine 0.84 (0.7-1.0) mg/dL Glucose 93 (65-110) mg/dL Calcium 9.1 (8.4-10.2) mg/dL Intake and Output 11/13/24 11/14/24 11/14/24 23:59 07:59 15:59 Intake Total 250 840 Output Total 500 Balance -250 840 Intake: Oral 250 840 Output: Urine 500 Patient Weight 11/14/24 23:59 Weight 67.9 kg
--- NOTE | 2024-11-14 13:34 | ECG_ITS ---
Test Date: 2024-11-14 14:36:29 Measurements Intervals [place] Rate: 78 P: 15 CA: 149 QRS: -19 QRSD: 89 T: 24 QT: 367 QTc: 419 Interpretive Statements SINUS RHYTHM VOLTAGE CRITERIA FOR LVH POOR R WAVE PROGRESSION MINIMAL Q WAVES- HIGH LATERAL LEADS BORDERLINE ECG Compared to ECG 11/13/2024 11:52:11 No significant changes Electronically Signed On 11-14-2024 15:36:57 CDT by Brandon Crouch D.O.
[2024-11-14 16:57] LABS: Glucose Point of Care 179 mg/dl (65-105)
--- NOTE | 2024-11-14 19:45 | ECHO_ITS ---
Patient Info Name: Zenobia White Age: 79 years : 1945 Gender: Female Ht: 61 in Wt: 163 lbs BSA: 1.81 m2 HR: 80 bpm BP: 146 / 56 mmHg Heart Rhythm: Sinus Rhythm Technical Quality: Fair Exam Date: 11/14/2024 1:15 PM Exam Location: Echo Lab Patient Status: Inpatient Admit Date: 11/14/2024 Staff Ordering Physician: Aide Doan PA-C Fur Clipper: Julianna Roldan RDCS Attending Provider: Emile Lisa PA-C Referring Physician: Olimpia GREWAL; Exam Type: CA echo doppler color flow Study Info Indications - Syncope Complete two-dimensional, color flow and Doppler transthoracic echocardiogram is performed. Summary 1. Complete two-dimensional, color flow and Doppler transthoracic echocardiogram is performed. 2. The left ventricle is normal in size and systolic function. There is moderate concentric left ventricular hypertrophy. The left ventricular ejection fraction is visually estimated to be 60-65%. 3. The right ventricle is normal in size and systolic function. 4. There are no significant valvular abnormalities. Left Ventricle The left ventricle is normal in size and systolic function. There is moderate concentric left ventricular hypertrophy. The left ventricular ejection fraction is visually estimated to be 60-65%. Right Ventricle The right ventricle is normal in size and systolic function. Left Atria The left atrium is mildly dilated. Right Atria The right atrium is normal size. Atrial Septum The atrial septum is not well visualized. Aortic Valve The aortic valve is trileaflet and opens well. There is no aortic regurgitation. Pulmonic Valve The pulmonic valve is not well visualized. There is no color Doppler evidence of pulmonic valve regurgitation. Mitral Valve The mitral valve leaflets are sclerotic but opens well. There is no mitral regurgitation. Tricuspid Valve The tricuspid valve is not well visualized. There is trace tricuspid regurgitation. Pericardium/Pleural Pericardium is normal in appearance with no evidence for significant pericardial effusion. Inferior Vena Cava Normal inferior vena cava with >50% collapse upon inspiration consistent with normal right atrial pressure, 3 mmHg. Aorta The aortic root at the level of the sinus of Valsalva measures 3.2 cm in diameter. Left Ventricular Outflow Tract Name Value Normal LVOT 2D LVOT Diameter 1.9 cm LVOT Doppler LVOT Peak Gradient 7 mmHg LVOT Mean Gradient 3 mmHg LVOT VTI 23 cm LVOT VTI/AV VTI Ratio 0.9 LVOT Stroke Volume 63 ml LVOT CO 4.9 l/min LVOT CI 2.7 l/min/m2 Pulmonic Valve Name Value Normal RVOT Doppler RVOT Peak Gradient 4 mmHg PV Doppler PV Peak Gradient 2 mmHg Mitral Valve Name Value Normal MV Doppler MV Decel [place] 239 cm/s2 MV PHT 70 ms MV Area (PHT) 3.1 cm2 4.0-5.0 MV Diastolic Function MV E Peak Velocity 58 cm/s MV A Peak Velocity 102 cm/s MV E/A 0.6 MV Decel Time 242 ms MV Annular TDI MV E/e' (Septal) 12.1 <=8.0 MV E/e' (Lateral) 8.8 <=8.0 MV E/e' (Average) 10.4 Tricuspid Valve Name Value Normal TV Regurgitation Doppler TR Peak Velocity 227 cm/s TR Peak Gradient 19 mmHg Estimated PAP/RSVP RA Pressure 3 mmHg <=5 PA Systolic Pressure 24 mmHg <36 RV Systolic Pressure 24 mmHg <36 Aortic Valve Name Value Normal AV Doppler AV Peak Velocity 164 cm/s AV Peak Gradient 11 mmHg AV Mean Gradient 5 mmHg AV VTI 25 cm AV Area (Cont Eq VTI) 2.5 cm2 >=3.0 AV Area (Cont Eq Alex) 2.2 cm2 AV Regurgitation 2D LVOT Area 2.7 cm2 Ventricles Name Value Normal LV Dimensions 2D/MM IVS Diastolic Thickness (2D) 1.2 cm 0.6-1.0 LVID Diastole (2D) 4.7 cm 3.8-5.2 LVIW Diastolic Thickness (2D) 1.2 cm 0.6-0.9 LVID Systole (2D) 2.9 cm 2.2-3.5 LVOT Diameter 1.9 cm LV Mass (2D Cubed) 209.15 g 67.00-162.00 LV Mass Index (2D Cubed) 115 g/m2 43-95 Relative Wall Thickness (2D) 0.53 LV Fractional Shortening/Ejection Fraction 2D/MM LV Fractional Shortening (2D) 38 % 27-45 LV EF (2D Teicholz) 68 % 54-74 LV Diastolic Volume (4C MOD) 148 ml LV EF (4C MOD) 69 % LV Diastolic Volume (2C MOD) 128 ml LV EF (2C MOD) 66 % LV Diastolic Volume (BP MOD) 139 ml 46-106 LV Diastolic Volume Index (BP MOD) 76 ml/m2 29-61 LV Systolic Volume (BP MOD) 45 ml 14-42 LV Systolic Volume Index (BP MOD) 25 ml/m2 8-24 LV EF (BP MOD) 67 % 54-74 LV Diastolic Length (4C) 8.0 cm LV Systolic Length (4C) 6.0 cm LV Stroke Volume (4C MOD) 103 ml Atria Name Value Normal LA Dimensions LA Volume (4C A-L) 67 ml LA Volume (BP A-L) 67 ml RA Dimensions RA Area (4C) 18.7 cm2 <=18.0 Report Signatures
[2024-11-15] VITALS (13 sets, daily range): BP systolic 116–132; BP diastolic 44–64; PULSE 68–90; RESP 16–20; TEMP 36.2–36.8; O2SAT 97–99; BMI 28.5
[2024-11-15 00:28] LABS: Glucose Point of Care 247 mg/dl (65-105)
[2024-11-15] MEDS: LEVOTHYROXINE SODIUM 125 MCG TABLET PO (05:07)
[2024-11-15 07:56] LABS: Glucose Point of Care 138 mg/dl (65-105)
[2024-11-15] MEDS: LOVASTATIN 20 MG TABLET PO (08:47)
[2024-11-15] MEDS: SPIRONOLACTONE 25 MG TABLET PO (08:47)
[2024-11-15] MEDS: carvediloL 6.25 MG TABLET PO ×2 (08:48→20:06)
[2024-11-15 09:01] LABS: Alanine Aminotransferase 22 U/L (6-35); Albumin Level 4.3 g/dL (3.5-5.1); Alkaline Phosphatase 68 U/L (38-126); Anion Gap 11 mmol/L (4-12); Aspartate Amino Transferase 29 U/L (14-36); Bilirubin,Total 0.7 mg/dL (0.2-1.3); Blood Urea Nitrogen 15 mg/dL (7-17); Calcium 9.4 mg/dL (8.4-10.2); Carbon Dioxide 21 mmol/L (22-30); Chloride 103 mmol/L (98-107); Estimated CRCL calculation 45 ml/min; Estimated Glomerular Filt Rate > 60; Glucose 165 mg/dL (65-110); Potassium 4.9 mmol/L (3.4-5.0); Sodium 135 mmol/L (137-145)
[2024-11-15 09:08] LABS: Basophils Percent Auto 0.3 % (0.2-1.2); Eosinophils Absolute Auto 0.1 K/mm3 (0-0.3); Hematocrit 34.8 % (37.0-47.0); Hemoglobin 11.3 g/dL (12.0-15.0); Immature Granulocyte Absolute 0.03 K/mm3 (0.00-0.031); Immature Granulocyte Percent A 0.5 % (0-0.5); Lymphocytes Absolute Auto 1.74 K/mm3 (0.9-3.2); Lymphocytes Percent Auto 26.5 % (18.3-44.2); Mean Corpuscular HGB Conc 32.5 g/dl (32-36); Mean Corpuscular Hemoglobin 29.3 pg (26-34); Mean Corpuscular Volume 90.2 fl (80-100); Mean Platelet Volume 9.9 fl (7.4-10.4); Monocytes Absolute Auto 0.5 K/mm3 (0.1-0.6); Monocytes Percent Auto 7.2 % (2.6-8.5); Neutrophils Absolute Auto 4.2 K/mm3 (1.3-6.7); Neutrophils Percent Auto 63.5 % (45.5-73.1); Platelet Count Result 138 k/mm3 (150-375); Red Blood Count 3.86 M/mm3 (4.2-5.4); Red Cell Distribution Width 16.8 % (11.5-14.5); White Blood Count 6.6 K/mm3 (4.5-10.0)
[2024-11-15] MEDS: ENOXAPARIN 40 MG/0.4 ML SYRINGE SUB-Q (11:55)
[2024-11-15 12:02] LABS: Glucose Point of Care 254 mg/dl (65-105)
[2024-11-15] MEDS: INSULIN ASPART (*BKC) 100 UNITS/ML SUB-Q ×2 (12:03→20:09)
--- NOTE | 2024-11-15 12:19 | PM.IMPN ---
Progress Note: A&P Assessment and Plan (1) Syncope: Code(s): R55 - Syncope and collapse Status: Acute Assessment and Plan: CT brain wo con: No intracranial hemorrhage, mass, or acute infarct C/T/L Spine CT: No acute osseous abnormality EKG: NSR, LVH, QTc 414 Glucose range: 98-250, monitor Monitor orthostatic vitals Echocardiogram shows normal LV size and systolic fxn, moderate concentric LVH, LVEF 60-65%, normal RV size and systolic fxn PT/OT evals (2) Urinary tract infection: Code(s): N39.0 - Urinary tract infection, site not specified Status: Acute Assessment and Plan: - UA: positive for nitrates, 2+ leukocyte esterase, 6 to 10 WBC, and 4+ bacteria - UC obtained on 11/13 - previous micro reviewed - started on rocephin (3) Tick bite: Code(s): W57.XXXA - Bitten or stung by nonvenomous insect and other nonvenomous arthropods, initial encounter Status: Acute Assessment and Plan: - Nursing staff reported finding tick on the anterior aspect of the right lower extremity, promptly removed - Pt thought this was a skin tag and it has been there for approximately 1 week - Some bruising noted to the area but no typical Lyme disease rash noted at this point - Started on Doxycycline 100mg q12hr for 14 days - Monitor site for rash development (4) Type 2 diabetes mellitus: Code(s): E11.9 - Type 2 diabetes mellitus without complications Status: Acute Assessment and Plan: - hypoglycemia protocol - POC blood glucose ACHS - home medication - hold metformin and pioglitazone - SSI (5) Hypertension: Code(s): I10 - Essential (primary) hypertension Status: Acute Assessment and Plan: chronic, 146/56 carvedilol 6.25mg (6) Hypothyroidism: Code(s): E03.9 - Hypothyroidism, unspecified Status: Acute Assessment and Plan: Continue levothyroxine Time Spent With Patient Time: Subjective Date/time seen: 11/15/24 12:19 Interval history: 79-year-old female with congenital hearing loss (she does have some hearing in the right ear and is adept at reading lips), hypertension, hypothyroidism, and type 2 diabetes mellitus presented to the emergency department via EMS for evaluation after a fall. 11/15/2024 Patient sitting comfortably in bed at time of exam. At this time, she denies any headaches, dizziness, chest pain, n/v, SOB, or abdominal pain. Report dizziness has greatly improved and has been able to ambulate with cane with minimal difficulties. Nursing staff reported finding a tick on the anterior aspect of her right lower extremity. Pt states she thought this was a skin tag and has known it was there for approximately 1 week. Nursing staff removed the tick last night so I was not able to visualize. Will start empiric treatment with Doxycycline 100mg q12hr. Review of Systems Review of Systems: 12 systems were reviewed and are negative except for as per HPI. Exam Narrative: General: Well-developed, nontoxic-appearing female sitting up in bed eating dinner in no distress. Weight: 74 kg. BMI: 30.8. HEENT: Normocephalic, atraumatic. Wearing corrective lenses. Hard of hearing. PERRL, EOMI. Sclera anicteric. Oral mucosa moist. Neck: Supple. No obvious carotid bruits. Respiratory: Lungs are clear to auscultation bilaterally. Cardiovascular: Regular rate and rhythm with S1-S2. Gastrointestinal: Abdomen is soft, nontender, and nondistended with positive bowel sounds. Skin: Warm and dry. Small tick on the right calf was removed intact. No edema, erythema, or bull's eye lesions seen. Extremities: No cyanosis, clubbing, or significant edema. Radial and pedal pulses intact. Neurological: Alert. Cranial nerves 2-12 are grossly intact. No gross focal deficits to casual conversation. Psychiatric: Pleasant and cooperative with normal mood and affect. Judgment and insight intact. Objective Data Vital Signs Vital Signs: Vital Signs - 24 hr 11/14/24 14:00 11/14/24 16:04 11/14/24 20:00 Temperature 97.6 F Pulse Rate 84 78 Respiratory Rate 18 Blood Pressure 140/52 L Pulse Oximetry 97 Oxygen Delivery Room Air 11/14/24 20:00 11/14/24 22:27 11/14/24 22:30 Temperature 98.2 F Pulse Rate 80 78 81 Respiratory Rate 16 Blood Pressure 144/60 H 142/62 H Pulse Oximetry 98 Oxygen Delivery 11/14/24 22:36 11/14/24 22:36 11/15/24 00:00 Temperature Pulse Rate 91 80 68 Respiratory Rate Blood Pressure 131/64 Pulse Oximetry Oxygen Delivery 11/15/24 04:00 11/15/24 05:05 11/15/24 08:00 Temperature 97.7 F Pulse Rate 78 79 Respiratory Rate 16 Blood Pressure 132/52 L Pulse Oximetry 97 Oxygen Delivery Room Air 11/15/24 08:48 11/15/24 09:40 11/15/24 10:36 Temperature Pulse Rate 86 Respiratory Rate Blood Pressure Pulse Oximetry Oxygen Delivery Room Air Room Air Intake/Output Intake/Output: Intake & Output 11/12/24 11/13/24 11/14/24 11/15/24 23:59 23:59 23:59 23:59 Intake Total 50 1810 387 Output Total 1010 850 Balance 50 800 -463 Meds/Results Medications: Active Medications Generic Name Dose Route Start Last Admin Trade Name Freq PRN Reason Stop Dose Admin Acetaminophen 650 mg 11/13/24 19:45 Acetaminophen 325 Mg Tablet PO Q6H PRN Mild Pain (1-3) or Fever Carvedilol 6.25 mg 11/14/24 09:00 11/15/24 08:48 Carvedilol 6.25 Mg Tablet PO 6.25 mg Q12HR JAY Administration Dextrose 12.5 gm 11/13/24 14:54 Dextrose 50% 25 Gm/50 Ml Syringe IV PUSH PRN PRN Hypoglycemia Protocol Doxycycline Hyclate 100 mg 11/15/24 21:00 Doxycycline Hyclate 100 Mg Tablet PO Q12HR JAY Enoxaparin Sodium 40 mg 11/14/24 09:00 11/15/24 11:55 Enoxaparin 40 Mg/0.4 Ml Syringe SUB-Q 40 mg DAILY JAY Administration Glucagon 1 mg 11/13/24 14:54 Glucagon For Inj 1 Mg Vial IM PRN PRN Hypoglycemia Protocol Glucose 15 gm 11/13/24 14:54 Glucose Oral Gel 15 Gm Of Glucse In 37.5 Gm Tube PO PRN PRN Hypoglycemia Protocol Dextrose 1,000 mls @ 100 mls/hr 11/13/24 14:54 Dextrose 5% 1,000 Ml IVPB PRN PRN Hypoglycemia Protocol Ceftriaxone Sodium 1 gm in 50 mls @ 100 mls/hr 11/14/24 13:00 11/15/24 12:01 Rocephin 1 Gm/Ns 50 Ml IVPB 100 mls/hr Q24H JAY Administration Insulin Aspart 2 - 5 units 11/14/24 08:00 11/15/24 12:03 Insulin Aspart (*Bkc) 100 Units/Ml SUB-Q 3 units TIDWM JAY Administration Protocol Insulin Aspart 1 - 2 units 11/13/24 21:00 11/14/24 22:42 Insulin Aspart (*Bkc) 100 Units/Ml SUB-Q 1 units HS JAY Administration Protocol Levothyroxine Sodium 125 mcg 11/13/24 06:30 11/15/24 05:07 Levothyroxine Sodium 125 Mcg Tablet PO 125 mcg DAILY@0630 JAY Administration Lovastatin 20 mg 11/14/24 09:00 11/15/24 08:47 Lovastatin 20 Mg Tablet PO 20 mg DAILY JAY Administration Perflutren Lipid Microsphere 0 ml 11/13/24 19:45 Perflutren Lipid Microspheres 1.5 Ml Vial Diluted To 10 Ml Total Volume IV PUSH 11/16/24 19:45 ONCE PRN adequate visualization Protocol Spironolactone 25 mg 11/14/24 09:00 11/15/24 08:47 Spironolactone 25 Mg Tablet PO 25 mg DAILY JAY Administration Radiology Results: ITS Impressions Head CT 11/13/24 11:28 Impression: No intracranial hemorrhage, mass, or acute infarct. Atrophy and chronic white matter changes, as above. Knee X-Ray 11/13/24 11:49 Impression: Minimal degenerative change. Chest X-Ray 11/13/24 11:50 Impression: Normal chest. Cervical Spine CT 11/13/24 11:53 IMPRESSION: 1. Severe cervical spondylosis. No acute osseous abnormality. Thoracic/Lumbar Spine CT 11/13/24 12:23 IMPRESSION: No acute osseous abnormality of the thoracic spine. Multilevel degenerative disc disease. CT thoracic lumbar wo con Ordering provider: Zaira Yip PA-C History: 79 years Female with . fall . Comparison: None. Technique: CT lumbar spine without contrast. Automated exposure control and iterative reconstruction technique were employed. The dose-length product was 732.04 mGy-cm. FINDINGS: VERTEBRAE: Normal height and alignment. No subluxation or visible acute fracture. Degenerative changes. DISC SPACES: Narrowing of the disc L2-L3, L3-L4, L4-L5 and L5-S1. Vacuum phenomena is seen in all these levels. Multilevel facet joint disease. T12-L1: No stenosis. L1-L2: No stenosis. L2-L3: No stenosis. Diffuse disc bulge. L3-L4: No stenosis. Diffuse disc bulge with bilateral narrowing of the foramina. L4-L5: No stenosis. Diffuse disc bulge with bilateral narrowing of the foramina. L5-S1: No stenosis. Diffuse disc bulge with bilateral narrowing of the foramina and nerve root compression. PARASPINOUS SOFT TISSUES: Mild atheromatous disease of the abdominal aorta. IMPRESSION: No acute osseous abnormality. Multilevel degenerative disc disease. Carotid Doppler Study 11/14/24 09:19 IMPRESSION: 1. <50% stenosis in the right internal carotid artery. 2. <50% stenosis in the left internal carotid artery. Labs Labs: Laboratory Results - last 24 hr 11/14/24 11/14/24 11/15/24 16:34 22:41 07:47 WBC RBC Hgb Hct MCV MCH MCHC RDW Plt Count MPV Immature Gran % (Auto) Neut % (Auto) Lymph % (Auto) [place] % (Auto) Eos % (Auto) Baso % (Auto) Lymph # (Auto) [place] # (Auto) Eos # (Auto) Baso # (Auto) Abs Immat Gran (auto) Absolute Neuts (auto) Absolute Nucleated RBC Nucleated RBC % Sodium Potassium Chloride Carbon Dioxide Anion Gap BUN Creatinine Estim Creat Clear Calc Estimated GFR Glucose POC Capillary Glucose 179 H 247 H 138 H Calcium Total Bilirubin AST ALT Alkaline Phosphatase Total Protein Albumin 11/15/24 11/15/24 08:47 11:49 WBC 6.6 RBC 3.86 L Hgb 11.3 L Hct 34.8 L MCV 90.2 MCH 29.3 MCHC 32.5 RDW 16.8 H Plt Count 138 L MPV 9.9 Immature Gran % (Auto) 0.5 Neut % (Auto) 63.5 Lymph % (Auto) 26.5 [place] % (Auto) 7.2 Eos % (Auto) 2.0 Baso % (Auto) 0.3 Lymph # (Auto) 1.74 [place] # (Auto) 0.5 Eos # (Auto) 0.1 Baso # (Auto) 0.0 Abs Immat Gran (auto) 0.03 Absolute Neuts (auto) 4.2 Absolute Nucleated RBC 0.000 Nucleated RBC % 0.0 Sodium 135 L Potassium 4.9 Chloride 103 Carbon Dioxide 21 L Anion Gap 11 BUN 15 Creatinine 0.80 Estim Creat Clear Calc 45 Estimated GFR > 60 Glucose 165 H POC Capillary Glucose 254 H Calcium 9.4 Total Bilirubin 0.7 AST 29 ALT 22 Alkaline Phosphatase 68 Total Protein 8.0 Albumin 4.3 Quality VTE Prophylaxis VTE prophylaxis: pharmacologic ordered (platelets are a bit low and will be monitored)
[2024-11-15 16:49] LABS: Glucose Point of Care 168 mg/dl (65-105)
[2024-11-15] MEDS: DOXYCYCLINE HYCLATE 100 MG TABLET PO (20:06)
[2024-11-15 20:09] LABS: Glucose Point of Care 276 mg/dl (65-105)
[2024-11-16] VITALS: PULSE 70
[2024-11-16 00:05] LABS: Glucose Point of Care 203 mg/dl (65-105)
[2024-11-16 04:00] VITALS: PULSE 69
[2024-11-16 04:15] LABS: Glucose Point of Care 156 mg/dl (65-105)
[2024-11-16 05:07] VITALS: BP 118/49; PULSE 75; RESP 18; TEMP 36.3; O2SAT 96
[2024-11-16] MEDS: LEVOTHYROXINE SODIUM 125 MCG TABLET PO (05:12)
[2024-11-16 05:22] LABS: Basophils Percent Auto 0.5 % (0.2-1.2); Eosinophils Absolute Auto 0.1 K/mm3 (0-0.3); Eosinophils Percent Auto 2.5 % (0-4.4); Hemoglobin 9.8 g/dL (12.0-15.0); Immature Granulocyte Absolute 0.01 K/mm3 (0.00-0.031); Immature Granulocyte Percent A 0.2 % (0-0.5); Immature Platelet Fraction Pct 2.3 % (0.9-11.2); Lymphocytes Absolute Auto 1.73 K/mm3 (0.9-3.2); Lymphocytes Percent Auto 39.1 % (18.3-44.2); Mean Corpuscular HGB Conc 32.7 g/dl (32-36); Mean Corpuscular Hemoglobin 29.6 pg (26-34); Mean Corpuscular Volume 90.6 fl (80-100); Mean Platelet Volume 9.5 fl (7.4-10.4); Monocytes Absolute Auto 0.4 K/mm3 (0.1-0.6); Neutrophils Absolute Auto 2.2 K/mm3 (1.3-6.7); Neutrophils Percent Auto 48.7 % (45.5-73.1); Platelet Count Result 101 k/mm3 (150-375); Red Blood Count 3.31 M/mm3 (4.2-5.4); Red Cell Distribution Width 16.4 % (11.5-14.5); White Blood Count 4.4 K/mm3 (4.5-10.0)
[2024-11-16 05:31] LABS: Alanine Aminotransferase 24 U/L (6-35); Albumin Level 3.6 g/dL (3.5-5.1); Alkaline Phosphatase 59 U/L (38-126); Anion Gap 9 mmol/L (4-12); Aspartate Amino Transferase 32 U/L (14-36); Bilirubin,Total 0.4 mg/dL (0.2-1.3); Blood Urea Nitrogen 18 mg/dL (7-17); Calcium 8.8 mg/dL (8.4-10.2); Carbon Dioxide 22 mmol/L (22-30); Chloride 102 mmol/L (98-107); Estimated CRCL calculation 46 ml/min; Estimated Glomerular Filt Rate > 60; Glucose 151 mg/dL (65-110); Potassium 4.1 mmol/L (3.4-5.0); Sodium 133 mmol/L (137-145)
[2024-11-16 08:00] VITALS: PULSE 71
[2024-11-16 08:03] LABS: Glucose Point of Care 150 mg/dl (65-105)
[2024-11-16 09:30] VITALS: PULSE 79
[2024-11-16] MEDS: DOXYCYCLINE HYCLATE 100 MG TABLET PO (09:30)
[2024-11-16] MEDS: LOVASTATIN 20 MG TABLET PO (09:30)
[2024-11-16] MEDS: AMOXICILLIN/CLAVULANATE K 875-125 MG TAB 1 TABLET PO (09:30)
[2024-11-16] MEDS: carvediloL 6.25 MG TABLET PO (09:30)
[2024-11-16] MEDS: SPIRONOLACTONE 25 MG TABLET PO (09:30)
[2024-11-16] MEDS: ENOXAPARIN 40 MG/0.4 ML SYRINGE SUB-Q (09:35)
--- NOTE | 2024-11-16 11:34 | P.DS_ITS ---
DS: Admitting Diagnosis Discharge Date 11/16/2024 Admitting Diagnosis Syncope Urinary tract infection DS: Discharge Diagnosis Discharge Diagnosis (1) Syncope: Code(s): R55 - Syncope and collapse Status: Acute (2) Urinary tract infection: Code(s): N39.0 - Urinary tract infection, site not specified Status: Acute (3) Tick bite: Code(s): W57.XXXA - Bitten or stung by nonvenomous insect and other nonvenomous arthr opods, initial encounter Status: Acute (4) Type 2 diabetes mellitus: Code(s): E11.9 - Type 2 diabetes mellitus without complications Status: Acute (5) Hypertension: Code(s): I10 - Essential (primary) hypertension Status: Acute (6) Hypothyroidism: Code(s): E03.9 - Hypothyroidism, unspecified Status: Acute DS: Summary Hospital Course Reason for hospitalization: Syncope. Urinary tract infection Hospital Course: This is a very pleasant 79-year-old female with congenital hearing loss (she does have some hearing in the right ear and is adept at reading lips), hypert ension, hypothyroidism, and type 2 diabetes mellitus presented to the emergency department via EMS for evaluation after a fall. She felt fine when she got up this morning and while walking to the kitchen to get something to drink ?my knee gave out? and she states that she fell to the ground and landed on her bottom but she reports that she believes that she lost consciousness. She was feeling lightheaded and weak for brief period of time after the event. She mentions having a similar episode last week. Apparently she got out of bed in the morning and the next thing she knew she was waking up on the floor. She does not recall having antecedent symptoms prior to that episode and she did not check her blood sugars thereafter as she apparently does not have a meter at home. She was incontinent of urine with both episodes and felt sweaty when she came to. Luckily she did not sustain any injuries. With further questioning she tells me that she ambulates with a cane but is very active and in fact goes to visit her friend several times a week. She does not drive and walks to her friend's house which is about 4 blocks away. Twice this week while walking home she became short of breath and fatigue which is very unusual for her. She has also noticed some mild dysuria but that is not consistent. She denies headache, fever, cold and flu symptoms, vertigo, visual changes, focal weakness, paresthesias, difficulty swallowing, chest and pleuritic pain, palpitations, shortness of breath, cough, nausea, vomiting, and abdominal pain. No history of seizures, heart disease, or syncope. She has not had any recent change in medications and denies that she could have taken extra medication. In the ED: Vital signs on arrival include a temperature of 98.1?, blood pressure 167/86, pulse 65, respiratory 16, SpO2 90% on room air. Labs were significant for WBC count of 11.6, platelet 128, glucose 235 (it dropped to 39 after she was in the ED for 6 hours and she was given some dextrose), lactic acid 1.1, troponin less than 0.012. Urinalysis was positive for nitrates, 2+ leukocyte esterase, 6 to 10 WBC, and 4+ bacteria. CT of the head and spine did not show any acute findings. Chest x-ray was normal. Right knee x-ray showed minimal degenerative change. She was given ceftriaxone 1 g and she is being admitted in this setting for close monitoring and further workup. Ultrasound carotid bilateral duplex ordered, which showed less than 50% stenosis in the right/left internal carotid arteries. Cervical/thoracic/lumbar spine CT showed no acute osseous abnormality, severe cervical spondylosis. Echocardiogram showed normal left ventricle size and systolic function with ejection fraction 60-65%. Right ventricle normal size and systolic function, no significant valvular abnormalities. Orthostatic vital signs were ordered and were negative. Urinalysis indicative of UTI. Culture was obtained and showed E coli growth with susceptibility to Augmentin. On 11/14, nursing staff found a tick on the anterior medial right lower extremity and promptly removed it. On 11/15 there did appear to be some ecchymosis to the area in which the tick was removed, but no erythema migrans or typical Lyme disease rash. Will empirically treat with doxycycline regardless as the patient states that the tick had been on for at least 7 days as she thought it was a skin tag and was going to have her removed by a vegetable vendor. There is some tenderness to palpation to the area where the tick was found, but no numbness/tingling to the surrounding tissue, bleeding, or drainage. Patient was able to work with PT/OT without any complications. She uses a walker/cane for daily activities and lives at home alone. Blood work is otherwise unremarkable and stable, and patient remains afebrile with stable vital signs. Syncopal episode likely caused by underlying UTI, she has not displayed any neurological deficits and has not complained of any dizziness or syncopal episodes since admission. Patient is otherwise stable for discharge at this point. She will be sent home with a prescription of Augmentin for UTI and doxycycline for tick bite prophylaxis. Patient reported this plan. Plan for discharge at this time. Status at Discharge Functional status at discharge: independent ambulation Overall status at discharge: patient is back to baseline Time Spent with Patient Time attestation: Total time spent providing and/or coordinating discharge services: 45 Exam Narrative: General: Well-developed, nontoxic-appearing female sitting up in bed eating dinner in no distress. Weight: 74 kg. BMI: 30.8. HEENT: Normocephalic, atraumatic. Wearing corrective lenses. Hard of hearing. PERRL, EOMI. Sclera anicteric. Oral mucosa moist. Neck: Supple. No obvious carotid bruits. Respiratory: Lungs are clear to auscultation bilaterally. Cardiovascular: Regular rate and rhythm with S1-S2. Gastrointestinal: Abdomen is soft, nontender, and nondistended with positive bowel sounds. Skin: Warm and dry. Small tick on the right calf was removed intact. Ecchymosis noted to the area which the tick was removed. No edema, erythema, or bull's eye lesions seen. Extremities: No cyanosis, clubbing, or significant edema. Radial and pedal pulses intact. Neurological: Alert. Cranial nerves 2-12 are grossly intact. No gross focal deficits to casual conversation. Psychiatric: Pleasant and cooperative with normal mood and affect. Judgment and insight intact. DS: Data Data Completed and Pending Labs on day of discharge: Labs from last 24 hours 11/16/24 11/16/24 11/16/24 08:01 05:06 04:12 WBC 4.4 L RBC 3.31 L Hgb 9.8 L Hct 30.0 L MCV 90.6 MCH 29.6 MCHC 32.7 RDW 16.4 H Plt Count 101 L MPV 9.5 Immature Gran % (Auto) 0.2 Neut % (Auto) 48.7 Lymph % (Auto) 39.1 [place] % (Auto) 9.0 H Eos % (Auto) 2.5 Baso % (Auto) 0.5 Lymph # (Auto) 1.73 [place] # (Auto) 0.4 Eos # (Auto) 0.1 Baso # (Auto) 0.0 Abs Immat Gran (auto) 0.01 Absolute Neuts (auto) 2.2 Absolute Nucleated RBC 0.000 Nucleated RBC % 0.0 % Immature Plt Fraction 2.3 Sodium 133 L Potassium 4.1 Chloride 102 Carbon Dioxide 22 Anion Gap 9 BUN 18 H Creatinine 0.78 Estim Creat Clear Calc 46 Estimated GFR > 60 Glucose 151 H POC Capillary Glucose 150 H 156 H Calcium 8.8 Total Bilirubin 0.4 AST 32 ALT 24 Alkaline Phosphatase 59 Total Protein 7.0 Albumin 3.6 11/16/24 11/15/24 11/15/24 00:01 20:04 16:43 WBC RBC Hgb Hct MCV MCH MCHC RDW Plt Count MPV Immature Gran % (Auto) Neut % (Auto) Lymph % (Auto) [place] % (Auto) Eos % (Auto) Baso % (Auto) Lymph # (Auto) [place] # (Auto) Eos # (Auto) Baso # (Auto) Abs Immat Gran (auto) Absolute Neuts (auto) Absolute Nucleated RBC Nucleated RBC % % Immature Plt Fraction Sodium Potassium Chloride Carbon Dioxide Anion Gap BUN Creatinine Estim Creat Clear Calc Estimated GFR Glucose POC Capillary Glucose 203 H 276 H 168 H Calcium Total Bilirubin AST ALT Alkaline Phosphatase Total Protein Albumin 11/15/24 11:49 WBC RBC Hgb Hct MCV MCH MCHC RDW Plt Count MPV Immature Gran % (Auto) Neut % (Auto) Lymph % (Auto) [place] % (Auto) Eos % (Auto) Baso % (Auto) Lymph # (Auto) [place] # (Auto) Eos # (Auto) Baso # (Auto) Abs Immat Gran (auto) Absolute Neuts (auto) Absolute Nucleated RBC Nucleated RBC % % Immature Plt Fraction Sodium Potassium Chloride Carbon Dioxide Anion Gap BUN Creatinine Estim Creat Clear Calc Estimated GFR Glucose POC Capillary Glucose 254 H Calcium Total Bilirubin AST ALT Alkaline Phosphatase Total Protein Albumin Discharge Plan Discharge Attending physician on discharge: Emile Lisa Consulting providers: Saumya Guerrero Discharging Clinician: Emile Lisa Anticipated Discharge Date/Time: 11/16/24 11:28 Patient Disposition: Home Activity: as tolerated Diet: as tolerated Discharge Instructions: Take all medications as prescribed even if feeling better. You will be prescribed Augmentin and Doxycycline for your UTI and for your tick bite. Eat well balanced meals and stay hydrated Keep active to remain strong Avoid use of diapers or pads Good delia Care every 2 hours Trend urine output If you should experience any chest pain, shortness of breath, temps >100.4 or any other worrisome symptoms please follow up with your PCP come back to the hospital Follow up with your primary in 2-3 weeks It has been a pleasure taking care of you thank you for using our services Patient Instructions: Antibiotic Form Patient Language: Sudanese Stand Alone Forms: General Discharge Information Follow-up/Referrals: Cj Oviedo MD [Physician] - Call for Appointment Cely,Jean Brower MD [Primary Care Provider] - Discharge Medications: New doxycycline hyclate 100 mg capsule 100 mg PO Q12H 13 Days Qty: 26 0RF amoxicillin-pot clavulanate 875-125 mg tablet 1 tablet PO Q12H 3 Days Qty: 7 0RF Continued carvedilol 6.25 mg tablet 6.25 mg PO BID ergocalciferol (vitamin D2) 1,250 mcg (50,000 unit) capsule 1,250 mcg PO WEEKLY Patient Comments: once a week on levothyroxine 125 mcg tablet 125 mcg PO QACBREAK lovastatin 20 mg tablet 20 mg PO DAILY metformin 1,000 mg tablet 500 mg PO BID pioglitazone 15 mg tablet 15 mg PO DAILY spironolactone 25 mg tablet 25 mg PO DAILY Date of admission: 11/14/24 09:51 Primary Care Provider: Cely,Jean Brower Admitting Provider: Corey Rico Attending physician on admission: Emile Lisa Condition: Stable Quality VTE Prophylaxis VTE prophylaxis: pharmacologic ordered (platelets are a bit low and will be monitored)
[2024-11-16 12:00] VITALS: PULSE 67
[2024-11-16 12:04] LABS: Glucose Point of Care 220 mg/dl (65-105)
[2024-11-16] MEDS: INSULIN ASPART (*BKC) 100 UNITS/ML SUB-Q (13:35)
[2024-11-16 17:30] LABS: Glucose Point of Care 154 mg/dl (65-105)
== END 2024-11-16 19:43 | disposition home or self-care (01) | DRG 690 ==
LOC: ANHED 11:32 → ANH3MEDSUR 15:45 → ANH3MED 16:42
PROVIDERS: Physician Assistant; Admitting Provider Hospitalist; Emergency Provider Physician Assistant; PCP Internal Medicine Gastroenterology; Visit Provider Physician Assistant
DX: N39.0 Urinary tract infection, site not specified (principal); W19.XXXA Unspecified fall, initial encounter; S80.861A Insect bite (nonvenomous), right lower leg, initial encounter; W57.XXXA Bitten or stung by nonvenomous insect and other nonvenomous arthropods, initial encounter; B96.20 Unspecified Escherichia coli [E. coli] as the cause of diseases classified elsewhere; E11.649 Type 2 diabetes mellitus with hypoglycemia without coma; E03.9 Hypothyroidism, unspecified; H90.5 Unspecified sensorineural hearing loss; I10 Essential (primary) hypertension; R32 Unspecified urinary incontinence; R55 Syncope and collapse; Z90.49 Acquired absence of other specified parts of digestive tract; Z87.891 Personal history of nicotine dependence; Z79.84 Long term (current) use of oral hypoglycemic drugs
CPT/HCPCS: 36415; 70450; 71046; 72125; 72128; 72131; 73564; 80048; 80053; 81001; 82550; 82948; 83036; 83605; 83735; 84439; 84443; 84484; 85025; 85027; 85055; 87086; 87186; 93005; 93306; 93880; 96365; 96375; 97161; 99285; A9270; G0378; J0696; J1650; J1815

== ENCOUNTER 2024-11-24 07:48 | Emergency (ER) | payer OTHER, SELFPAY ==
[2024-11-24] VITALS (11 sets, daily range): BP systolic 139–164; BP diastolic 54–84; PULSE 68–92; RESP 14–19; TEMP 36.4; O2SAT 98–100
--- NOTE | ~2024-11-24 | CT_ITS ---
CT brain wo con Ordering provider: Harjinder Cr MD History: 79 years Female with . fall . Comparison: November 13, 2024 Technique: CT of the head without contrast. Radiation reduction technique utilized.The dose-length pr oduct was 681 mGy-cm. FINDINGS: BRAIN PARENCHYMA AND CSF SPACES: Mild leukoaraiosis and diffuse cortical atrophy. Mild atheromatous d isease. No midline shift, mass effect or hemorrhage. The brain parenchyma and CSF spaces are otherwi se normal. VISUALIZED PARANASAL SINUSES: Well aerated. MASTOIDS: Well aerated. BONES: The bones appear intact. SOFT TISSUES: Visualized nasopharynx is normal. Superficial soft tissues are normal. IMPRESSION: No acute intracranial findings. Reviewed, dictated and finalized at location A.
--- NOTE | ~2024-11-24 | CT_ITS ---
CT cervical spine wo con Ordering provider: Harjinder Cr MD History: . fall . Comparison: November 13, 2024 Technique: CT of the cervical spine was performed without contrast. Sagittal and coronal reformatted images were also obtained and reviewed. Automated exposure control and iterative reconstruction eugene hnique were employed. The dose-length product was 681.00 mGy-cm. FINDINGS: VERTEBRAE: No subluxation or acute fracture. The occipital condyles are intact. Degenerative changes of the spine. DISC SPACES: Narrowing of the disc C3-C4, C4-C5, C5-C6 and C6-C7. Multilevel facet joint disease. Mul tilevel uncovertebral joint osteoarthritic changes. Bilateral narrowing of the foramina at the level of C3-C4, C4-C5, C5-C6 and C6-C7. PARASPINOUS SOFT TISSUES: Normal. IMPRESSION: No acute osseous abnormality cervical spine. Multilevel degenerative disc disease. Reviewed, dictated and finalized at location A.
--- NOTE | ~2024-11-24 | XR_ITS ---
XR chest 2V Ordering provider: Harjinder Cr MD History: 79 years Female with . weakness . Comparison: November 13, 2024 FINDINGS: MEDIASTINUM: The cardiac silhouette is slightly enlarged. LUNGS: No infiltrates, effusions or pneumothorax. OTHER: No free air under the diaphragm. IMPRESSION: No acute cardiopulmonary pathology. Reviewed, dictated and finalized at location A.
[2024-11-24 07:56] LABS: Glucose Point of Care 137 mg/dl (65-105)
--- NOTE | 2024-11-24 07:58 | ECG_ITS ---
Test Date: 2024-11-24 08:01:57 Measurements Intervals [place] Rate: 78 P: 58 MA: 149 QRS: -8 QRSD: 92 T: 52 QT: 375 QTc: 429 Interpretive Statements SINUS RHYTHM MINIMAL VOLTAGE CRITERIA FOR LVH, CONSIDER NORMAL VARIANT [MEETS CRITERIA IN ONE OF: R(aVL), S(V1), R(V5), R(V5/V6)+S(V1)] Compared to ECG 11/14/2024 14:36:29 Poor R-wave progression no longer present Electronically Signed On 11-24-2024 16:05:28 CDT by Julia Carey
[2024-11-24 08:09] LABS: Basophils Percent Auto 0.3 % (0.2-1.2); Eosinophils Percent Auto 0.5 % (0-4.4); Hematocrit 32.7 % (37.0-47.0); Hemoglobin 10.3 g/dL (12.0-15.0); Immature Granulocyte Absolute 0.03 K/mm3 (0.00-0.031); Immature Granulocyte Percent A 0.5 % (0-0.5); Lymphocytes Absolute Auto 1.13 K/mm3 (0.9-3.2); Lymphocytes Percent Auto 19.4 % (18.3-44.2); Mean Corpuscular HGB Conc 31.5 g/dl (32-36); Mean Corpuscular Hemoglobin 29.2 pg (26-34); Mean Corpuscular Volume 92.6 fl (80-100); Mean Platelet Volume 9.4 fl (7.4-10.4); Monocytes Absolute Auto 0.4 K/mm3 (0.1-0.6); Monocytes Percent Auto 7.1 % (2.6-8.5); Neutrophils Absolute Auto 4.2 K/mm3 (1.3-6.7); Neutrophils Percent Auto 72.2 % (45.5-73.1); Platelet Count Result 108 k/mm3 (150-375); Red Blood Count 3.53 M/mm3 (4.2-5.4); Red Cell Distribution Width 16.3 % (11.5-14.5); White Blood Count 5.8 K/mm3 (4.5-10.0)
[2024-11-24 08:18] LABS: Alanine Aminotransferase 25 U/L (6-35); Albumin Level 3.9 g/dL (3.5-5.1); Alkaline Phosphatase 68 U/L (38-126); Anion Gap 11 mmol/L (4-12); Aspartate Amino Transferase 34 U/L (14-36); Bilirubin,Total 0.6 mg/dL (0.2-1.3); Blood Urea Nitrogen 23 mg/dL (7-17); Calcium 9.7 mg/dL (8.4-10.2); Carbon Dioxide 18 mmol/L (22-30); Chloride 107 mmol/L (98-107); Estimated CRCL calculation 35 ml/min; Estimated Glomerular Filt Rate 50; Glucose 166 mg/dL (65-110); Potassium 4.6 mmol/L (3.4-5.0); Sodium 136 mmol/L (137-145)
[2024-11-24 08:24] LABS: Add Urine Microscopic? NO; Appearance Urine Clear (Clear); Bilirubin Urine Negative (Negative); Blood Urine Negative (Negative); Color Urine Yellow (Yellow); Glucose Urine UA Negative (Negative); Ketones Urine Negative (Negative); Leukocyte Esterase Ur Negative LEU/UL (Negative); Nitrate Urine Negative (Negative); Protein Urine Negative (Negative); Specific Grav Ur 1.014 (1.001-1.035); Urobilinogen Urine 0.2 mg/dL (<2.0)
--- NOTE | 2024-11-24 08:41 | ED.GENADULT ---
HPI - General Adult General Chief complaint: Weakness Stated complaint: weakness Time Seen by Provider: 11/24/24 08:40 Source: patient and EMS Mode of arrival: EMS History of Present Illness HPI narrative: 79 years old white female came from home by ambulance because feeling weak, unable to speak right, lethargic, blood glucose found to be 37, patient received IV D10 prior to arrival, blood glucose on arrival is 137. Patient did not eat her breakfast or taking medication, last anti diabetic medication was taken last night. Patient was seen by her family physician 3 days ago and home visiting nurse was scheduled to visit patient on the regular scheduled. Currently patient denying any symptoms, denies any fever, chills, nausea, vomiting, diarrhea, constipation, abdominal pain, chest pain, shortness of breath or any symptom. Related Data Home Medications ?Medication ?Instructions ?Recorded ?Confirmed ?Last Taken ?Type carvedilol 6.25 mg tablet 6.25 mg PO BID 11/13/24 11/13/24 Unknown History ergocalciferol (vitamin D2) 1,250 1,250 mcg PO WEEKLY 11/13/24 11/13/24 10/31/24 History mcg (50,000 unit) capsule levothyroxine 125 mcg tablet 125 mcg PO QACBREAK 11/13/24 11/13/24 Unknown History lovastatin 20 mg tablet 20 mg PO DAILY 11/13/24 11/13/24 Unknown History metformin 1,000 mg tablet 500 mg PO BID 11/13/24 11/13/24 Unknown History pioglitazone 15 mg tablet 15 mg PO DAILY 11/13/24 11/13/24 Unknown History spironolactone 25 mg tablet 25 mg PO DAILY 11/13/24 11/13/24 Unknown History Allergies Allergy/AdvReac Type Severity Reaction Status Date / Time No Known Allergies Allergy Verified 11/24/24 07:59 Review of Systems Review of Systems: All systems reviewed & are unremarkable except as noted in HPI and below PMFSH Past Medical History Medical History Congenital hearing loss Type 2 diabetes mellitus Hypothyroidism Hypertension Surgical History Surgical History History of open reduction and internal fixation (ORIF) procedure repair left wrist fracture History of appendectomy History of dilation and curettage Status post unilateral salpingo-oophorectomy History of hysterectomy for benign disease Social History Social History Social History: Surrogate medical decision maker: gisel Michele. Code status: Full code. Smoking status: Former smoker Tobacco type: cigarettes Alcohol intake: former Substance use: never Do You Feel Safe in your Home?: Yes Lack of Transportation: No Lack of Food: Sometimes True Current Housing: I Do Not Have Housing Concerned About Future Housing: No Difficulty Paying Gas/Electric Bills: No Difficulty Paying for Meds: No Currently Unemployed: No Education: Decline to Answer Difficulty w/ Childcare or Family Care: No Additional living arrangements comments: with 3 children. She lives alone in [place]. 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 Spiritual care concerns: No Exam Narrative: General appearance: Well-developed, well-nourished Skin: Normal color Head: Normocephalic, nontraumatic Eyes: Clear conjunctiva ENT: Oropharynx normal, ears normal, nose normal Neck: Supple, nontender Chest and respiratory: Airway patent, no respiratory distress, no accessory muscle use Heart: Regular rate/rhythm Abdomen: Soft, nontender, no organomegaly, quiet bowel sounds Vascular: Normal peripheral pulses, normal capillary refill. Musculoskeletal: Normal range of motion, nontender back Neurologic: Alert and oriented ?3, DUMPER BULK SYSTEM is normal as tested, no gross motor deficit Course Vital Signs Vital signs: Vital Signs Temperature 36.4 C 11/24/24 07:47 Pulse Rate 79 11/24/24 07:47 Respiratory Rate 16 11/24/24 07:47 Blood Pressure 155/84 H 11/24/24 07:47 Pulse Oximetry 100 11/24/24 07:47 Oxygen Delivery Room Air 11/24/24 07:47 Temperature 36.4 C 11/24/24 07:47 Pulse Rate 75 11/24/24 08:34 Respiratory Rate 17 11/24/24 08:34 Blood Pressure 140/61 11/24/24 08:34 Pulse Oximetry 100 11/24/24 08:34 Oxygen Delivery Room Air 11/24/24 08:05 Medical Decision Making MDM Narrative Medical decision making narrative: Patient came with hypoglycemia like symptoms Vital signs are stable Physical examination is unremarkable Differential diagnosis includes hypoglycemia secondary to not eating well, except dose of anti diabetic medication, or too much physical activities. Blood workup today includes CBC, CMP, showed no significant abnormality Urinalysis showed no significant abnormality Patient received a breakfast in the ED and was advised to not take her metformin today until she contacted physician tomorrow for further management Differential Diagnosis Differential Diagnosis: As above Vital Signs Vital Signs: Vital Signs Temperature 36.4 C 11/24/24 07:47 Pulse Rate 79 11/24/24 07:47 Respiratory Rate 16 11/24/24 07:47 Blood Pressure 155/84 H 11/24/24 07:47 Pulse Oximetry 100 11/24/24 07:47 Oxygen Delivery Room Air 11/24/24 07:47 Temperature 36.4 C 11/24/24 07:47 Pulse Rate 75 11/24/24 08:34 Respiratory Rate 17 11/24/24 08:34 Blood Pressure 140/61 11/24/24 08:34 Pulse Oximetry 100 11/24/24 08:34 Oxygen Delivery Room Air 11/24/24 08:05 Lab Data 11/24/24 08:02 11/24/24 08:02 Labs: Lab Results 11/24/24 11/24/24 11/24/24 Range/Units 07:53 08:02 08:12 WBC 5.8 (4.5-10.0) K/mm3 RBC 3.53 L (4.2-5.4) M/mm3 Hgb 10.3 L (12.0-15.0) g/dL Hct 32.7 L (37.0-47.0) % MCV 92.6 (80-100) fl MCH 29.2 (26-34) pg MCHC 31.5 L (32-36) g/dl RDW 16.3 H (11.5-14.5) % Plt Count 108 L (150-375) k/mm3 MPV 9.4 (7.4-10.4) fl Immature Gran % (Auto) 0.5 (0-0.5) % Neut % (Auto) 72.2 (45.5-73.1) % Lymph % (Auto) 19.4 (18.3-44.2) % Terry % (Auto) 7.1 (2.6-8.5) % Eos % (Auto) 0.5 (0-4.4) % Baso % (Auto) 0.3 (0.2-1.2) % Lymph # (Auto) 1.13 (0.9-3.2) K/mm3 Terry # (Auto) 0.4 (0.1-0.6) K/mm3 Eos # (Auto) 0.0 (0-0.3) K/mm3 Baso # (Auto) 0.0 (0.0-0.1) K/mm3 Abs Immat Gran (auto) 0.03 (0.00-0.031) K/mm3 Absolute Neuts (auto) 4.2 (1.3-6.7) K/mm3 Absolute Nucleated RBC 0.000 (0.0-0.012) K/mm3 Nucleated RBC % 0.0 (0.0-0.2) % Sodium 136 L (137-145) mmol/L Potassium 4.6 (3.4-5.0) mmol/L Chloride 107 (98-107) mmol/L Carbon Dioxide 18 L (22-30) mmol/L Anion Gap 11 (4-12) mmol/L BUN 23 H (7-17) mg/dL Creatinine 1.07 H (0.7-1.0) mg/dL Estim Creat Clear Calc 35 ml/min Estimated GFR 50 L (59 - ) Glucose 166 H (65-110) mg/dL POC Capillary Glucose 137 H (65-105) mg/dl Calcium 9.7 (8.4-10.2) mg/dL Total Bilirubin 0.6 (0.2-1.3) mg/dL AST 34 (14-36) U/L ALT 25 (6-35) U/L Alkaline Phosphatase 68 (38-126) U/L Total Protein 7.0 (6.3-8.2) g/dL Albumin 3.9 (3.5-5.1) g/dL Urine Color Yellow (Yellow) Urine Appearance Clear (Clear) Urine pH 5.0 (5.0-9.0) Ur Specific [place] 1.014 (1.001-1.035) Urine Protein Negative (Negative) mg/dL Urine Glucose (UA) Negative (Negative) mg/dL Urine Ketones Negative (Negative) mg/dL Ur Blood (Man) Negative (Negative) Urine Nitrate Negative (Negative) Urine Bilirubin Negative (Negative) Urine Urobilinogen 0.2 (<2.0) mg/dL Leukocyte Esterase Rfl Negative (Negative) PACHECO/UL Critical Care Time Critical Care Time Critical Care Time: No Discharge Plan Discharge Clinical Impression: Hypoglycemia Patient Disposition: Home Condition: Improved Instructions: General Patient Instructions, Hypoglycemia in a Person with Diabetes (ED) Additional Instructions: Return if symptoms are worsening , call your family physician for appointment, take Tylenol as as needed for aches and pain, continue home medications. Do not take metformin today, contact your family physician in the morning for further management. Patient Language: Khmer Prescriptions: No Action carvedilol 6.25 mg tablet 6.25 mg PO BID ergocalciferol (vitamin D2) 1,250 mcg (50,000 unit) capsule 1,250 mcg PO WEEKLY Patient Comments: once a week on levothyroxine 125 mcg tablet 125 mcg PO QACBREAK lovastatin 20 mg tablet 20 mg PO DAILY metformin 1,000 mg tablet 500 mg PO BID pioglitazone 15 mg tablet 15 mg PO DAILY spironolactone 25 mg tablet 25 mg PO DAILY doxycycline hyclate 100 mg capsule 100 mg PO Q12H 13 Days Qty: 26 0RF amoxicillin-pot clavulanate 875-125 mg tablet 1 tablet PO Q12H 3 Days Qty: 7 0RF Follow-up/Referrals: Cely,Jean Brower MD [Non-Staff] -
--- OUTSIDE RECORDS SUMMARY | 2024-11-24 09:09 | XMS_ITS | CONTINUITY OF CARE DOCUMENT ---
Author Name rachel ramos Address Unknown Organization [facility] Address [address] [place] [address] Phone [phone] Care Team Providers Care Braille Proofreader Name Role Phone Venkat Lemons MD Unavailable CAMILO YO MD Unavailable [...] In-person encounter Office Visit Venkat Lemons MD [place] [facility] Hyperlipidemia, unspecifiedCHEST PAIN-3/14 NUC NEG EF 61SHORTNESS OF BREATH-3/14 PFT MILD REST - In-person encounter Office Visit Venkat Lemons MD [place] [facility] HYPOTHYROIDISMHyperlipidemi a, unspecifiedDIABETES MELLITUSOBESITYCHEST PAIN-3/14 NUC NEG EF 61SHORTNESS OF BREATH-3/14 PFT MILD REST VITAL SIGNS Date Observation Value Provider Body Mass Index (Ratio) 29.74 kg/m2 Charelne ica Precious Sanchez blood pressure, diastolic 70 [...] on Body Mass Index (Ratio) 30.89 kg/m2 [facility] oly [facility] [place] blood pressure, cuff size regular [facility] blood pressure, diastolic 80 mm[Hg] Je ssica N Daniel blood pressure, systolic 160 mm[Hg] Radha haleigh N Daniel oxygen saturation, oximetry 97 % Caty N Adniel respiratory rate E&M 20 /min Caty N Daniel pulse rate 86 /min Caty N Wilso n weight E&M 166.2 [lb_av] Caty N Wils on Body Mass Index (Ratio) 30.48 kg/m2 [facility] [place] blood [...] as percent of blood leukocytes 6.6 % [facility] Absolute Monocytes 0.3 CELLS/UL [facility] 0.2 - 1.0 lymphocytes as percent of blood leukocytes 34.6 % [facility] - Absolute Lymphocytes 1.8 CELLS/UL [facility] 0.9 - 3.9 mean platelet volume 11.3 (?) [facility] - platelet count 122.0 THOUSAND/ UL [facility]Log 100.0 - 400.0 mean corpuscular hemoglobin concentration, RBC 32.1 G/DL [facility] 31.0 - 38.0 mean corpuscular hemoglobin, RBC 31.6 pg [facility] 25.0 - 35.0 mean corpuscular volume, RBC 98.6 fL [facility] 75.0 - 100.0 hematocrit, blood 42.1 % [facility] 35.0 - 55.0 hemoglobin, blood 13.5 g/dL [facility] 11.5 - 16.5 erythrocyte count, whole blood 4.3 MILLION/U L [facility] 3.5 - 5.5 iron, serum 114.0 ug/dL [facility] 25.0 - 156.0 iron saturation percent, serum 28.5 % [facility] 20.0 - 50.0 iron binding capacity, total 400.4 ug/dL [facility] 250.0 - 450.0 ferritin, serum 111.8 ng/mL [facility] 13.0 - 150.0 immature granulocytes, percentage of total cells, blood 0.2 % [facility] - nucleated red blood cells as percent of blood leukocytes 0.0 % [facility] - red blood cell (erythrocyte) count, per high power field 0.0 10*3/UL [facility] - eosinophils as percent of blood leukocytes 1.7 % [facility] - neutrophils as percent of blood leukocytes 47.1 % [facility] - Absolute Neutrophils 2.2 CELLS/UL [employer] 1.5 [...] Low iron binding capacity, total 452.2 ug/dL [facility] 250.0 - 450.0 High platelet count 197 10*3/mm3 Em Ro hematocrit, blood 26.3 % Em Ro triglyceride, serum, fasting 91 mg/dL Em Ro HDL cholesterol, serum 34 mg/dL [facility] lipoprotein, beta, serum, point, quantitative, calculated 55 mg/dL Em Ro cholesterol, serum 107 mg/dL Em Jayjay thyroid stimulating hormone, serum 0.018 u[IU]/mL [facility] B-type natriuretic peptide 198 pg/mL Em Jayjay alanine aminotransferase (SGPT), serum 30 1/L [facility] aspartate aminotransferase (SGOT), serum 54 1/L [facility] creatinine, serum 0.58 mg/dL [facility] potassium, serum 3.8 mmol/L [facility] sodium, serum 144 mmol/L [facility] HISTORY OF MEDICATION USE Medication Status [...] reviewed Demar Bird RN drug use no eDmar Bird RN passive cigarette smoke exposure no [...] Payer name Policy type / Coverage type [employer] party ID [employer] insurance compan y [id number] [place] [employer] Medicare [id number] TREATMENT PLAN Date Name Performer : H [...] BP: / () & #13;Orders: E KG (CPT-31588) S TR - Adenosine (63637) C omplete Echo (CPT-31812) F ull PFT (*) Venkat Lemons MD [...] Provider Procedure Notes S tatus DLCO - 64806 Venkat Lemons MD complet ed FRC - 54855 Venkat Lemons MD complete d FVC - 40913 Venkat Lemons MD complete d EKG Venkat Lemons MD completed
--- OUTSIDE RECORDS SUMMARY | 2024-11-24 09:10 | XMS_ITS | Clinical Summary ---
Author Organization [facility] Address [address] [place] [address] Care Team Providers Care Automotive Service Professional Name Role Phone Unavailable Primary Care Provider Unavailabl e Source Comments [facility] [employer] the [employer],non-owned Affiliates and Associated Physician Practices is amultiple site organization consisting of ambulatory clinics and hospital sitesin [place], [place], [place]. This disclosure is being madepursuant to the Care Everywhere program and may not contain all information available regarding this patient. Last updated 18.[facility] [employer] Social History Tobacco Use Types Packs/Day Years [...] patient's age to complete this topic Insurance [facility] MEDICARE
--- OUTSIDE RECORDS SUMMARY | 2024-11-24 09:10 | XMS_ITS ---
Author Organization [facility] Address [email or web address] [address] Care Team Providers Care Salvage Cutter Name Role Phone Daya MURRIETA, James Primary Care Provider Unavailab Jaycee Nova Unavailable [phone] REASON FOR VISIT RT foot pain Encounters Encounter Location Date Provider Diagnosis [facility] [address] [address] 06/12/2023 Jaycee Holguin Plan Of Treatment No Information Progress Notes * Jeffrey WHITEOB:1945 (79 yo F)Acc No.[id number]:06/12/2023 Progress Notes Patient: Zenobia WILD Provider: Zaria Holguin DPM :1945 A ge:77 Y S ex:Female Date:06/12/2023 Address:[address] [facility] Pcp:James Stapleton MD Subjective: * Chief Complaints: * 1 . RT foot pain. * Medical History: Objective: * Vitals: Assessment: Plan: * Treatment: * Images: * Electronic signature of Lyndsey Holguin DPM on 11/24/2024 at 09:10 AM CDT Sign off status: Pending * Provider: Zaria Holguin DPM Date: 08/12/2022 Generated for Printi ng/Faabbeyg/eTransmitting on: 0 11/24/2024 09:10 AM CDT
--- OUTSIDE RECORDS SUMMARY | 2024-11-24 09:10 | XMS_ITS | Clinical Summary ---
Author Organization [facility] [address] [facility] Address [address] [place] [address] Care Team Providers Care Inspectors And Regulatory Officers Name Role Phone James Stapleton MD Primary Care Provider [phone] Jose Benavidez MD Unavailable Allergies No known active allergies Medications blood-glucose meter (Blood Glucose Monitoring) kitIndications: Type 2 diabetes mellitus without complication, without long-term current use of insulin ([facility]) 1 kit daily Check blood sugar daily 1 each 1 Active lancets miscIndications :Type 2 diabetes mellitus without complication, without long-term current use of insulin ([facility]) Check blood sugar daily 100 [...] complication, without long-term current use of insulin ([facility]) 11/23/2018 Assessment & Plan (10/20/2021 [...] Type Department Care Team Description 11/12/2024 Telephone [facility] Family Medicine at [address] [place] [phone] James Stapleton MD Appointment Request 10/25/2024 Telephone [facility] Family Medicine at [address] [place] [phone] Shayla Velasquez MA Unsuccessful Phone Call [...] week 05/02/2023 How often do you attend formerly [facility] or [employer] services? More than 4 times per year 05/02/2023 Do you belong to any clubs o r organizations such as evangelical groups, unions, fraternal or athletic groups, or [...] place to sleep or slept in a correction (including now)? No 05/02/2023 Personal Safety Answer Date Recorded Have you ever been in or are you currently in a harmful physical or emotional relationship or is someone making you feel afraid or unsafe? Denies 05/02/2023 Comments No Sex and Gender Information Value Date Recorded Sex Assigned at Not on file Legal Sex Female 11:27 PM NUTRITION SERVICES ASSISTANT Gender Identity Not on file Sexual Orientation [...] 36.5 C (97.7 F) 08/22/2023 9:23 AM NUTRITION SERVICES ASSISTANT Respiratory Rate 16 01/04/2024 9:44 AM CDT [...] CREATININE RATIO, URINE Routine 08/18/2023 9:29 AM NUTRITION SERVICES ASSISTANT Type 2 diabetes mellitus without complication, without [...] A1C 7.9(H) <5.7 % of total Hgb Contact At Once!Al Lazaro Comment: For someone without known diabetes, [...] change in test platforms from the Robbins Spray Gun Sizer to the Nilay pepe c503 may have shifted HbA1c results compared to historical results. Based on laboratory validation testing conducted at [facility], the Nilay platform relative to the Robbins [...] LAB BLOOD ORDERABLES Final Re sult JUVE [facility] At [facility] [address] [place] [phone] * (ABNORMAL) Lipid panel (02/01/2024 9:36 AM CDT) Cholesterol 155 <200 mg/dL Juve EDMdesignerMerleneSandi alfred Lazaro HDL 45(L) > OR = 50 mg/dL Juve EDMdesignerAl Lazaro Triglycerides 119 <150 mg/dL [facility] Once[facility]Al Lazaro LDL 88 mg/dL (calc) Juve EDMdesignerAl Lazaro Comment: Reference range: <100 Desirable range <100 mg/dL for primary prevention; <70 mg/dL for patients with CHD or diabetic patients with > or = 2 CHD risk factors. LDL-C is now calculated using the Ector calculation, which is a validated novel method providing better accuracy than the Friedewald equation in the estimation of LDL-C. Liu GIBBS et al. ZAC. 2013;310(19): 7865-8874 (http://education.BLUEPHOENIX/faq/FOE600) Chol/HDL ratio 3.4 <5.0 (calc) Juve ManciaAl Lazaro Non-HDL, (LDL+VLDL) 110 <130 mg/dL (calc) Contact [facility] Once!MerleneSandi alfred Lazaro Comment: For patients with diabetes plus 1 major ASCVD risk factor, treating to a non-HDL-C goal of <100 mg/dL (LDL-C of <70 mg/dL) is considered a therapeutic option. Blood 02/01/2024 9:36 AM CDT 02/01/2024 9:37 AM CDT Narrative [facility] - 02/01/2024 10:21 PM CDT FASTING:YES FASTING: YES us James Stapleton MD LAB BLOOD ORDERABLES Final Re sult [facility] [address] [place] [phone] * (ABNORMAL) Comprehensive metabolic panel (02/01/2024 9:36 AM CDT) Glucose 123(H) 65 - 99 mg/dL Juve EDMdesignerAl Lazaro Comment: Fasting reference interval For someone without known diabetes, a glucose value between 100 and 125 mg/dL is consistent with prediabetes and should be confirmed with a follow-up test. BUN 11 7 - 25 mg/dL Juve EDMdesigner alfred Lazaro Creatinine 0.81 0.60 - 1.00 mg/dL [facility] EDMdesigner alfred Lazaro eGFR 75 > OR = 60 mL/min/1.7 3m2 Juve ManciaSandi Lazaro BUN/creat ratio SEE NOTE: 6 - 22 (calc) [facility] EDMdesigner alfred Lazaro Comment: Not Reported: BUN and Creatinine are within reference range. Sodium 137 135 - 146 mmol/L [facility] EDMdesigner alfred Lazaro Potassium, pl 4.1 3.5 - 5.3 mmol/L [facility] Blanche alfred Lazaro Chloride 104 98 - 110 mmol/L Juve EDMdesigner alfred Lazaro CO2 25 20 - 32 mmol/L Juve EDMdesigner alfred Lazaro Calcium 9.3 8.6 - 10.4 mg/dL [facility] EDMdesigner alfred Lazaro Protein, sr 6.6 6.1 - 8.1 g/dL [facility] EDMdesigner alfred Lazaro Albumin 4.1 3.6 - 5.1 g/dL [facility] EDMdesigner alfred Lazaro GLOBULIN 2.5 1.9 - 3.7 g/dL (calc) [facility] EDMdesigner alfred Lazaro Alb/glob ratio 1.6 1.0 - 2.5 (calc) [facility] EDMdesigner alfred Lazaro Bilirubin, total 0.7 0.2 - 1.2 mg/dL [facility] EDMdesigner alfred Lazaro Alk phos 63 37 - 153 U/L [facility] AST 21 10 - 35 U/L [facility] EDMdesigner alfred Lazaro ALT (SGPT) 14 6 - 29 U/L [facility] EDMdesigner alfred Lazaro Blood 02/01/2024 9:36 AM CDT 02/01/2024 9:37 AM CDT Narrative [facility] - 02/01/2024 10:21 PM CDT FASTING:YES FASTING: YES us James Stapleton MD LAB BLOOD ORDERABLES Final Re sult [facility] [address] [place] [address] * (ABNORMAL) Albumin Creatinine Ratio, Urine (08/18/2023 9:29 AM NUTRITION SERVICES ASSISTANT) Creatinine, ur 87 20 - 275 mg/dL [...] a diagnostic category. Urine 08/18/2023 9:29 AM NUTRITION SERVICES ASSISTANT 08/18/2023 9:32 AM NUTRITION SERVICES ASSISTANT Narrative [facility] - 08/19/2023 12:59 PM NUTRITION SERVICES ASSISTANT FASTING:YES FASTING: YES us James Stapleton MD LAB URINE ORDERABLES Final Re sult [facility] [address] [place] [address] * COLONOSCOPY (05/02/2023 4:26 PM CDT) Anatomical Region Laterality Modality Other Narrative Procedure Note Jose Benavidez MD - 05/02/2023 4:26 PM CDT [facility] Endoscopy Lab Patient Name: Zenobia White Procedure Date: 05/02/2023 4:26 PM Date of : 1945 Admit Type: Inpatient Age: 77 Gender: Female Note Status: Finalized Attending MD: Jose Benavidez M.D. 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 Medicines: Fentanyl [...] the bowelpreparation was evaluated using the BBPS (Nathalie BowelPreparation Scale) with scores of: Right Colon [...] not recommended. 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 All rights reserved. The codes documented in this report are preliminary and upon pot washer reviewmay be revised to meet current compliance requirements. Electronically signed by oJse Benavidez MD Jose Benavidez M.D. 05/02/2023 5:12:06 [...] old F with given history of screening. Stuntman/Model: HoloMindlikes A (S/N [id number]) CLINICAL INFORMATION: Current height: 60.5 inches Maximum [...] Kathleen Birmingham M.D. TW: TW Report ID: [id number] Reading Location: [id number] Procedure Note Kathleen Birmingham MD - 11/09/2022 EXAM DESCRIPTION: DEXA AXIAL SKELETON BONE DENSITY 1 OR MORE SITES REASON FOR STUDY: 77 y/o year old F with given history of screening. Stuntman/Model: Hologic Horizon A (S/N [id number]) CLINICAL INFORMATION: Current height: 60.5 inches Maximum [...] Kathleen Birmingham M.D. TW: LOREN Report ID: [id number] Reading Location: [id number] James Stapleton MD IMG DXA PROCEDURES Final [...] by Karlos Mane M.D. MD: Report ID: [id number] [facility] Narrative 04/07/2022 11:42 AM CDT EXAM DESCRIPTION: [...] Most Recently Relevant to Health Maintenance Insurance [facility] Advance Directives For more information, please contact: [phone] Documents on File Type Date Recorded Patient Insurance Verification Rep Expl anation ADVANCE DIRECTIVE 03/29/2019 * Full Code (Latest Code Status on File) Date Activated Date Inactivated Comments 05/02/2023 3:13 PM 05/05/2023 10:06 PM * Full Code Date Activated Date Inactivated Comments 05/01/2023 1:15 PM 05/02/2023 3:13 PM Care Teams Inspectors And Regulatory Officers Relationship Specialty Start Date End Date James Stapleton MD PCP - General Family Medicine 10/15/18 [place] [id number] [address] Consulting Physician Gastroenterology 05/05/23
--- OUTSIDE RECORDS SUMMARY | 2024-11-24 09:10 | XMS_ITS | Patient Health Record ---
Author Organization 1 OF Amadeo [facility] Address [address] [address] [place] [address] Care Team Providers Care Conservator Artifacts Name Role Phone James Stapleton MD Primary Care Provider Nona rutherford Jaycee Holguin Unavailable [phone] Allergies No Known Allergies Reason For Referral [...] Problem Status W/U Status Risk Notes Problem [id number] Type 2 diabetes mellitus with other circulatory complications (E11.59) Active confirmed Problem Type 2 diabetes mellitus without complication (E11.9) Active confirmed Plan Of Treatment No Information Insurance Providers Payer Name Payer Address Payer Phone Subscriber Number Group Number Insured Name Patient Relationship to Insured Coverage Start Date Coverage End Date [employer] [address] [address] [place] [address] [id number] Zenobia White Self - patient is the insured Medical (General) History Medical History History ICD Code Arthritis, asthma, diabetes, high cholesterol, high blood pressure, migraines, thyroid problems, bleeding ulcer Surgical History Surgery Date(Month/Year)
--- OUTSIDE RECORDS SUMMARY | 2024-11-24 09:10 | XMS_ITS | Data Portability ---
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 Records from previous PCP. Records from [facility] where she had her abdominal surgery [...] fruits and vegetables minimal if any caffeine [email or web address] Not available 09/19/2024 13:32:05 Plan of Treatment Reminders Order Date Submit Date Provider Last Modified By Organization Details Last Modified Time Details Appointments ANY 15 2024 11:15A Adarsh Ag MD Not available Not available Not available Lab HbA1c (hemoglob in A1c), blood 2024 025 BRODY [facility], [address], [place], [address], 09/18/2024 13:13:02 albumin/c reatinine , mass ratio, urine 2024 025 BRODY [facility], [address], [place], [address], 09/18/2024 13:12:57 vitamin D, 25-hydrox y, total, serum 2024 025 BRODY [facility], [address], [place], [address], 09/18/2024 13:13:07 unlisted lab - T4, free 2024 025 BRODY [facility], [address], [place], [address], 09/18/2024 13:13:00 T3, free, serum or plasma 2024 025 BRODY [facility], [address], [place], [address], 09/18/2024 13:13:06 TSH, ultra-sen sitive, serum 2024 025 BRODY [facility], [address], [place], [address], 09/18/2024 13:13:03 lipid panel, serum 2024 025 BRODY [facility], [address], [place], [address], 09/18/2024 13:12:58 CBC w/ auto diff 2024 025 BRODY [facility], [address], [place], [address], 09/18/2024 13:13:05 CMP, serum or plasma 2024 025 BRODY [facility], [address], [place], [address], 09/18/2024 13:13:01 TSH, serum or plasma 2024 025 BRODY [facility], [address], [place], [address], 11/06/2024 06:46:50 T4, free, serum 2024 025 [facility], [address], [place], [address], 10/30/2024 06:47:06 T3, free, serum or plasma 2024 025 [place] [facility], [address], [place], [address], 10/30/2024 06:47:05 Referral None recorded. Procedures None recorded. Surgeries None recorded. Imaging None recorded. Medication Orders None recorded. Patient TargetsNo targets recorded. Patient InstructionsNo instructions recorded. Reason for Referral Home Health Referral for Syn cope Referring Physician: Saul Ag, Internal Medicine, Encounter Date: 11/22/2024 Results Created Date Observation Date Name Description Value Unit Range Abnormal Flag Note LastModifiedBy Organization Detail LastModifiedTime 09/17/19 25 09/18/2024 ALBUM IN/CR EATIN INE RATIO ,URIN E creatinine, urine 34.5 mg/dL notest ab. Not Available [facility] ([facility]) [address] [facility], [place], [address], 09/18/2024 13:12:57 09/17/19 25 09/18/2024 ALBUM IN/CR EATIN INE RATIO ,URIN E albumin, urine 10.9 ug/mL notest ab. Not Available [facility] ([facility]) [address] [place], [address], 09/18/2024 13:12:57 09/17/19 25 09/18/2024 ALBUM IN/CR EATIN INE RATIO ,URIN E alb/creat ratio 32 mg/g_ creat 0-29 above high normal Mi l: 0 - 29 Moder ately incre ased: 30 - 300 Sever darwin incre ased: >300 Not Available [facility] ([facility]) [address] [facility], [place], [address], 09/18/2024 13:12:57 09/17/19 25 09/18/2024 LIPID PANEL cholesterol, total 176 mg/dL 100-19 9 Not Available [facility] ([facility]) [address] [place], [address], 09/18/2024 13:12:58 09/17/19 25 09/18/2024 LIPID PANEL triglyceride s 156 mg/dL 0-149 above high normal Not Available [facility] ([facility]) [address] [place], [address], 09/18/2024 13:12:58 09/17/19 25 09/18/2024 LIPID PANEL HDL cholesterol 48 mg/dL >39 Not Available [facility]) [address] [place], [address], 09/18/2024 13:12:58 09/17/19 25 09/18/2024 LIPID PANEL VLDL cholesterol soheila 27 mg/dL 5-40 Not Available [facility] ([facility]) [address] [place], [address], 09/18/2024 13:12:58 09/17/19 25 09/18/2024 LIPID PANEL LDL chol calc ([facility]) 101 mg/dL 0-99 above high normal Not Available [facility] ([facility]) [address] [place], [address], 09/18/2024 13:12:58 09/17/19 25 09/18/2024 T4, FREE T4,free(dire ct) 0.12 NG/dL 0.82-1 .77 below low normal Not Available [facility] ([facility]) [address] [place], [address], 09/18/2024 13:12:59 09/17/19 25 09/18/2024 COMP. METAB OLIC PANEL (14) glucose 141 mg/dL 70-99 above high normal Not Available [facility] ([facility]) [address] [facility] [place], [address], 09/18/2024 13:13:01 09/17/19 25 09/18/2024 COMP. METAB OLIC PANEL (14) BUN 8 mg/dL 8-27 Not Available [facility] ([facility]) [address] [facility] [place], [address], 09/18/2024 13:13:01 09/17/19 25 09/18/2024 COMP. METAB OLIC PANEL (14) creatinine 0.91 mg/dL 0.57-1 .00 Not Available [facility] ([facility]) [address] [facility] [place], [address], 09/18/2024 13:13:01 09/17/19 25 09/18/2024 COMP. METAB OLIC PANEL (14) eGFR 65 mL/mi n/1.7 3 >59 Not Available [facility] ([facility]) [address] [place], [address], 09/18/2024 13:13:01 09/17/19 25 09/18/2024 COMP. METAB OLIC PANEL (14) BUN/creatini ne ratio 9 12-28 below low normal Not Available [facility] ([facility]) [address] [place], [address], 09/18/2024 13:13:01 09/17/19 25 09/18/2024 COMP. METAB OLIC PANEL (14) sodium 137 mmol/ L 134-14 4 Not Available [facility] ([facility]) [address] [place], [address], 09/18/2024 13:13:01 09/17/19 25 09/18/2024 COMP. METAB OLIC PANEL (14) potassium 4.1 mmol/ L 3.5-5. 2 Not Available [facility] ([facility]) [address] [place], [address], 09/18/2024 13:13:01 09/17/19 25 09/18/2024 COMP. METAB OLIC PANEL (14) chloride 101 mmol/ L 96-106 Not Available [facility] ([facility]) [address] [facility], [place], [address], 09/18/2024 13:13:01 09/17/19 25 09/18/2024 COMP. METAB OLIC PANEL (14) carbon dioxide, total 22 mmol/ L 20-29 Not Available [facility] ([facility]) [address] [facility], [place], [address], 09/18/2024 13:13:01 09/17/19 25 09/18/2024 COMP. METAB OLIC PANEL (14) calcium 9.7 mg/dL 8.7-10 .3 Not Available [facility] ([facility]) [address] [place], [address], 09/18/2024 13:13:01 09/17/19 25 09/18/2024 COMP. METAB OLIC PANEL (14) protein, total 7.3 g/dL 6.0-8. 5 Not Available [facility] ([facility]) [address] [facility], [place], [address], 09/18/2024 13:13:01 09/17/19 25 09/18/2024 COMP. METAB OLIC PANEL (14) albumin 4.2 g/dL 3.8-4. 8 Not Available [facility] ([facility]) [address] [facility], [place], [address], 09/18/2024 13:13:01 09/17/19 25 09/18/2024 COMP. METAB OLIC PANEL (14) globulin, total 3.1 g/dL 1.5-4. 5 Not Available [facility] ([facility]) [address] [facility], [place], [address], 09/18/2024 13:13:01 09/17/19 25 09/18/2024 COMP. METAB OLIC PANEL (14) bilirubin, total 0.5 mg/dL 0.0-1. 2 Not Available [facility] ([facility]) [address] [place], [address], 09/18/2024 13:13:01 09/17/19 25 09/18/2024 COMP. METAB OLIC PANEL (14) alkaline phosphatase 94 IU/L 44-121 Not Available [facility]) [address] [place], [address], 09/18/2024 13:13:01 09/17/19 25 09/18/2024 COMP. METAB OLIC PANEL (14) AST (SGOT) 22 IU/L 0-40 Not Available [facility] ([facility]) [address] [place], [address], 09/18/2024 13:13:01 09/17/19 25 09/18/2024 COMP. METAB OLIC PANEL (14) ALT (SGPT) 11 IU/L 0-32 Not Available [facility] ([facility]) [address] [place], [address], 09/18/2024 13:13:01 09/17/19 25 09/18/2024 HEMOG LOBIN A1C hemoglobin A1C 7.3 % 4.8-5. 6 above high normal Predi abete s: 5.7 - 6.4 Diabe lisa: >6.4 Glyce chantal contr ol for adult s with diabe lisa: <7.0 Not Available [facility] ([facility]) [address] [place], [address], 09/18/2024 13:13:02 09/17/1909/18/2024 TSH TSH 46.200 uIU/m L 0.450- 4.500 above high normal Not Available [facility] ([facility]) [address] [place], [address], 09/18/2024 13:13:03 09/17/1909/18/2024 CBC WITH DIFFE RENTI AL/PL ATELE T WBC 5.7 x10e3 /uL 3.4-10 .8 Not Available [facility] ([facility]) [address] [facility], [place], [address], 09/18/2024 13:13:05 09/17/1909/18/2024 CBC WITH DIFFE RENTI AL/PL ATELE T RBC 3.88 x10e6 /uL 3.77-5 .28 Not Available [facility] ([facility]) [address] [place], [address], 09/18/2024 13:13:05 09/17/1909/18/2024 CBC WITH DIFFE RENTI AL/PL ATELE T hemoglobin 11.2 g/dL 11.1-1 5.9 Not Available [facility] ([facility]) [address] [place], [address], 09/18/2024 13:13:05 09/17/1909/18/2024 CBC WITH DIFFE RENTI AL/PL ATELE T hematocrit 34.3 % 34.0-4 6.6 Not Available [facility] ([facility]) [address] [place], [address], 09/18/2024 13:13:05 09/17/1909/18/2024 CBC WITH DIFFE RENTI AL/PL ATELE T MCV 88 fL 79-97 Not Available [facility] ([facility]) [address] [place], [address], 09/18/2024 13:13:05 09/17/1909/18/2024 CBC WITH DIFFE RENTI AL/PL ATELE T MCH 28.9 pg 26.6-3 3.0 Not Available [facility] ([facility]) [address] [place], [address], 09/18/2024 13:13:05 09/17/19 25 09/18/2024 CBC WITH DIFFE RENTI AL/PL ATELE T MCHC 32.7 g/dL 31.5-3 5.7 Not Available [facility] ([facility]) [address] [facility], [place], [address], 09/18/2024 13:13:05 09/17/19 25 09/18/2024 CBC WITH DIFFE RENTI AL/PL ATELE T RDW 14.1 % 11.7-1 5.4 Not Available [facility] ([facility]) [address] [facility], [place], [address], 09/18/2024 13:13:05 09/17/19 25 09/18/2024 CBC WITH DIFFE RENTI AL/PL ATELE T platelets 128 x10e3 /uL 150-45 0 below low normal Not Available [facility] ([facility]) [address] [facility], [place], [address], 09/18/2024 13:13:05 09/17/19 25 09/18/2024 CBC WITH DIFFE RENTI AL/PL ATELE T neutrophils 54 % notest ab. Not Available [facility] ([facility]) [address] [facility], [place], [address], 09/18/2024 13:13:05 09/17/19 25 09/18/2024 CBC WITH DIFFE RENTI AL/PL ATELE T lymphs 36 % notest ab. Not Available [facility] ([facility]) [address] [place], [address], 09/18/2024 13:13:05 09/17/19 25 09/18/2024 CBC WITH DIFFE RENTI AL/PL ATELE T monocytes 6 % notest ab. Not Available [facility] ([facility]) [address] [place], [address], 09/18/2024 13:13:05 02/25/09/18/2024 CBC WITH DIFFE RENTI AL/PL ATELE T eos 3 % notest ab. Not Available [facility] ([facility]) [address] [place], [address], 09/18/2024 13:13:05 09/17/1909/18/2024 CBC WITH DIFFE RENTI AL/PL ATELE T basos 1 % notest ab. Not Available [facility] ([facility]) [address] [place], [address], 09/18/2024 13:13:05 09/17/1909/18/2024 CBC WITH DIFFE RENTI AL/PL ATELE T neutrophils (absolute) 3.1 x10e3 /uL 1.4-7. 0 Not Available [facility] ([facility]) [address] [place], [address], 09/18/2024 13:13:05 09/17/1909/18/2024 CBC WITH DIFFE RENTI AL/PL ATELE T lymphs (absolute) 2.0 x10e3 /uL 0.7-3. 1 Not Available [facility] ([facility]) [address] [place], [address], 09/18/2024 13:13:05 09/17/1909/18/2024 CBC WITH DIFFE RENTI AL/PL ATELE T monocytes(ab solute) 0.4 x10e3 /uL 0.1-0. 9 Not Available [facility] ([facility]) [address] [place], [address], 09/18/2024 13:13:05 09/17/1909/18/2024 CBC WITH DIFFE RENTI AL/PL ATELE T eos (absolute) 0.2 x10e3 /uL 0.0-0. 4 Not Available [facility] ([facility]) [address] [place], [address], 09/18/2024 13:13:05 09/17/1909/18/2024 CBC WITH DIFFE RENTI AL/PL ATELE T baso (absolute) 0.0 x10e3 /uL 0.0-0. 2 Not Available [facility] ([facility]) [address] [place], [address], 09/18/2024 13:13:05 09/17/1909/18/2024 CBC WITH DIFFE RENTI AL/PL ATELE T immature granulocytes 0 % notest ab. Not Available [facility] ([facility]) [address] [place], [address], 09/18/2024 13:13:05 09/17/1909/18/2024 CBC WITH DIFFE RENTI AL/PL ATELE T immature grans (abs) 0.0 x10e3 /uL 0.0-0. 1 Not Available [facility] ([facility]) [address] [place], [address], 09/18/2024 13:13:05 09/17/19 25 09/18/2024 TRIIO DOTHY MAYO E (T3), FREE triiodothyro nine (T3), free 0.8 pg/mL 2.0-4. 4 below low normal Not Available [facility] ([facility]) [address] [place], [address], 09/18/2024 13:13:06 09/17/1909/18/2024 VITAM IN D, 25-HY [...] IOM (Inst itute of Medic ine). 2010. Tabitha ry refer ence elise es for calci um and D. Antonio woodruff [place]: [facility] Press . 2. Salma parks MF, Linda vidal [place], Irene off-F mike i GARDUNO, et al. Evalu ation , treat ment, and preve ntion of vitam in D defic iency : an Endoc rine Socie ty clini soheila pract ice guide line. JCEM. 2010; 96(7) :1911 -30. Not Available [facility] ([facility]) [address] [place], [address], 09/18/2024 13:13:07 10/30/19 25 10/30/2024 TRIIO DOTHY MAYO E (T3), FREE triiodothyro nine (T3), free 3.0 pg/mL 2.0-4. 4 Not Available [facility] ([facility]) [address] [place], [address], 10/30/2024 06:47:05 10/30/19 25 10/30/2024 T4,FR EE(DI RECT) T4,free(dire ct) 2.66 NG/dL 0.82-1 .77 above high normal Not Available [facility] ([facility]) [address] [place], [address], 10/30/2024 06:47:06 10/30/19 25 10/30/2024 VITAM IN [...] Endoc rine Socie ty went on to fur er defin e vitam in D insuf ficie ncy as a level betwe en 21 and 29 ng/mL (2). 1. IOM (Inst itute of Medic ine). 2010. Dieta ry refer ence intak es for calci um and D. Antonio woodruff [place]: [facility] Press . 2. Salma parks MF, Linda vidal [place], Irene off-F errivy i GARDUNO, et al. Evalu ation , treat ment, and preve ntion of vitam in D defic iency : an Endoc rine Socie ty clini soheila pract ice guide line. JCEM. 2010; 96(7) :1911 -30. Not Available [facility] ([facility]) [address] [facility], [place], [address], 10/30/2024 09:03:37 10/30/1911/05/2024 THYRO ID STIMU LATIN G HORMO NE TSH-icma 0.25 uu/mL Refer ence Range : Non-P regna nt Adult 0.450 -4.50 0 Pregn tim First Trime ster 0.100 -4.00 0 Secon d Trime ster 0.200 -4.00 0 Third Trime ster 0.300 -4.50 0 Not Available [facility] [address] [facility], [place], [address], 11/06/2024 06:46:50 Result Notes None recorded. Problems Name Problem SNOMED Code Status Onset Date Resolution Date Notes Provider Name and Address Organization Details Recorded Time Essential hypertension 11739327 Active 2024 Halle Castro MA null, [place] [facility] 15:58:26 Type 2 diabetes mellitus 77116223 Active 2024 Halle Castro [place], [place] [facility] 15:58:26 Thrombocytopen ic disorder 924360167 Active 2024 Saul Ag MD Attn: Bonnie lindquist,[address] [place], [address], [place] [facility] 23:42:24 Hypothyroidism 71770059 Active 2024 Saul Ag MD Attn: Bonnie lindquist,[address] [place], [address], [place] [facility] 5 23:42:30 Vitamin D below reference range 463996948 Active 2024 Saul Ag MD Attn: Bonnie lindquist,[address] [facility], [place], [address], [place] [facility] 5 23:43:13 Hypoglycemia 013884212 Active 2024 Halle Castro [place], [place] [facility] 5 12:23:56 Overweight 320292483 Active 2024 Halle Castro [place], [place] [facility] 12:23:57 Overweight in adulthood with body mass index of 25 or more but less than 30 396007209 Active 2024 Halle Castro [place], [place] [facility] 12:23:58 Problem Notes None recorded. Medical Equipment None Reported. Allergies No known drug allergies Medications Name Sig Start Date Stop Date [...] Not Available Not Available No t Available doxycyclin e hyclate 100 mg capsule TAKE 1 CAPSULE BY MOUTH EVERY 12 HOURS FOR 13 DAYS active Not Available Not Available No t [...] t Available levothyrox ine 125 mcg tablet TAKE 1 TABLET BY MOUTH ONCE DAILY active Not Available Not Available No t Available glimepirid e 4 mg tablet TAKE 1 [...] Not Available Not Available No t Available amoxicilli n 875 mg-potassi um clavulanat e 125 mg tablet TAKE 1 TABLET BY MOUTH EVERY 12 HOURS FOR 3 DAYS active Not Available Not Available No t Available Vitals Date Recorded Body height Body mass index (BMI) Body weight Heart rate Oxygen saturation Oxygen saturation in Arterial blood by Pulse oximetry Systolic blood pressure Diastolic blood pressure Provider Name and Address Organization Details Last Updated DateTime 154.94 cm 30 kg/m2 38416.1 9 g 64 /min 99 % 99 % 144 mm[Hg] 74 mm[Hg] Suzy Gong MA [facility] 15:25:45 Date Recorded Body height Body mass index (BMI) Body weight Heart rate Oxygen saturation Oxygen saturation in Arterial blood by Pulse oximetry Systolic blood pressure Diastolic blood pressure Provider Name and Address Organization Details Last Updated DateTime 154.94 cm 28.1 kg/m2 49753.1 9 g 79 /min 98 % 98 % 120 mm[Hg] 70 mm[Hg] Albertina Cordero MA [facility] 5 10:56:47 Social History Question Answer Notes LastModified by Organizat ion Details LastModified Time Tobacco Smoking Status Former Smoker Quit Aug 1999 Suzy Gong MA [facility] 09/17/2024 15:20:42 What Is Your Level Of [...] Date Of Your Most Recent Tobacco Screening? 11/22/2024 [email or web address] Information not available 11/22/2024 What Is Your Current Pack Years? 30ormorepack [...] Anxious, Or Unable To Sleep At Night)? [id number] Information not available 09/17/2024 Do You Use [...] Not available 0 09/17/2024 15:17:32 Mother Malignant neoplasm of lung [email or web address] Not available 08/25 15:17:43 [...] Skin Problems N Anemia N Heart Attack (NM) N Anxiety Disorder N Diabetes Y Muscle, Joint, or Bone Problems N Seizures/Epilepsy N Have you had a colonoscopy in the last 1 0 years? N Acid Reflux (GERD) N Cancer N Stroke N Asthma N Allergies N Have you had a PSA blood test in the las t year? N High Cholesterol Y Hepatitis N Liver Disease N Headaches N Osteoporosis N Heart Failure N Gynecological HistoryNo gynecological history recorded. Obstetrics [...] 15:08:30 Influenza, high-dose, quadrivalent, PF 2 completed BRAYDON Hess, [place] - [facility] 09/17/2024 15:08:30 COVID-19, mRNA, LNP-S, PF, 100 mcg/0.5mL dose or 50 mcg/0.25mL dose 1 completed BRAYDON [place] [facility] 09/17/2024 15:08:30 COVID-19 vaccine, vector-nr, rS-Ad26, PF, 0.5 mL 1 completed BRAYDON [place] [facility] 09/17/2024 15:08:30 COVID-19, mRNA, LNP-S, bivalent, PF, 30 mcg/0.3 mL dose 3 completed BRAYDON eHss, [place] [facility] 09/17/2024 15:08:30 RSV, recombinant, [...] high-dose, trivalent, PF 8 completed BRAYDON [place] [facility] 09/17/2024 15:08:30 Influenza, high-dose, trivalent, PF 4 completed BRAYDON [place] [facility] 09/17/2024 15:08:30 Influenza, high-dose, trivalent, PF 9 completed Suzy Gong [place], [place] [facility] 09/17/2024 15:08:30 Influenza, high-dose, trivalent, PF 6 completed BRAY[place] [facility] 09/17/2024 15:08:30 Influenza, high-dose, trivalent, PF 7 completed Suzy Gong [place], [place] [facility] 09/17/2024 15:08:30 Past Encounters Encounter ID Performer Location Encounter Start Date Encounter Closed Date Diagnosis/Indication Diagnosis SNOMED-CT Code Diagnosis ICD10 Code Diagnosis Note [id number] Saul Ag MD [facility] (Adult Med) [address] [place] [phone] 09/17/2024 14:24:15 09/17/2024 16:04:21 Essential hypertension 13842332 I10 Type 2 shiv betes mellitus 08367789 E11.9 Long-term drug therapy 749569806 Z79.899 Hypothyroidism 80692341 E03.9 Hyperlipidemia 71807951 E78.5 Gastroesop hageal reflux disease without esophagitis 104247970 K21.9 Gallstone 030857915 K80. 20 History of peptic ulcer 265204363 Z87.11 Adult heal th examination 959088874 Z00.00 [id number] Saul Ag MD [facility] (Adult Med) [address] [place] [phone] 11/22/2024 10:11:41 11/22/2024 12:37:56 Overweight in adulthood with body mass index of 25 or more but less than 30 598007761 E66.3 Z68.28 Overweight 219626658 E66 .3 Hypoglycemia 467945384 E 16.2 Syncope 807166574 R55 Health Concerns Section Related Observation LastModified by [...] Anemia. History of bleeding ulcer treated at [facility] comes in to establish care. Medications [...] eye exams but she thinks she is jk-wk-ylzbllmzuw she had a colonoscopy but when she had a bleeding ulcer thinks she is up-to-date with jgtbiwlpftq-sn-gjkl on flu shot unsure of COVID thinks she had shingles vaccinations Saul Ag MD Attn: [address] [place], [address], [place] - [facility] 09/19/2024 13:32:37 OBGyn Episode No OBEpisode recorded.
--- OUTSIDE RECORDS SUMMARY | 2024-11-24 09:10 | XMS_ITS ---
Author Organization 1 OF Amadeo lang [facility] Address [address] [place] [address] Care Team Providers Care Engine House Helper Name Role Phone James Stapleton MD Primary Care Provider Unavailab Jaycee Nova Unavailable [phone] Allergies No Known Allergies REASON FOR VISIT [...] Date Provider Diagnosis 1 OF Amadeo Gong [facility] [address] [place] [address] 09/27/2023 Jaycee Holguin Type 2 diabetes henry [...] Detail Notes PALLIATIVE FOOT CARE: Nail debride (56301): Debr idement of five or less mycotic [...] Notes * Meghann WHITEhDOB:1945 (78 yo F)Acc No.[id number]:09/27/2023 Progress Notes Patient: Zenobia WILD Provider: Zaria Holguin DPM :1945 A ge:78 Y S ex:Female Date:09/27/2023 Address:[address] [place], [place] [id number] Pcp:James Stapleton MD Subjective: * Chief Complaints: [...] medications since last visit? d enies. A ak changes in medical history/hospitalizations? admits. * Medical [...] bilateral. Nails: N ail plates of:TA and R1ougkan elongated, thickened, dystrophic, discolored, with subungual debris. [...] Procedures: P ALLIATIVE FOOT CARE:: Nail debride (30159): D ebridement of five or less mycotic [...] 0 09/27/2023 Generated for Kirsten appiah/Nicolasa/Carol on: 11/24/2024 09:09 AM CDT History and Physical Notes * [...]
--- OUTSIDE RECORDS SUMMARY | 2024-11-24 09:10 | XMS_ITS | Referral Summary ---
Author Organization [facility] [address] [facility] Address [address] [place] [address] Care Team Providers Care Sheet Rock Applier Name Role Phone James Stapleton MD Primary Care Provider [phone] Jose Benavidez MD Unavailable Encounters Date Type Department Care Team Description 11/12/2024 Telephone [facility] Medical [facility] Family Medicine at [address] [place] [phone] James Stapleton MD Appointment Request 10/25/2024 Telephone [facility] Family Medicine at [address] [place] [address] Shayla Velasquez MA Unsuccessful Phone [...] complication, without long-term current use of insulin ([facility]) 11/23/2018 Assessment & Plan (10/20/2021 9:57 AM [...] often do you attend chur ch or zoroastrian services? More than 4 times per year 05/02/2023 Do you belong to any clubs o r organizations such as sikh groups, unions, fraternal or athletic groups, or [...] place to sleep or slept in a fci (including now)? No 05/02/2023 Personal Safety Answer Date Recorded Have you ever been in or are you currently in a harmful physical or emotional relationship or is someone making you feel afraid or unsafe? Denies 05/02/2023 Comments No Sex and Gender Information Value Date Recorded Sex Assigned at Not on file Legal Sex Female 11:27 PM CITIZEN PARTICIPATION SPECIALIST Gender Identity Not on file Sexual Orientation Not on file Last Filed Vital Signs Vital Sign Reading Time Taken Comments Blood Pressure 148/88 01/04/2024 9:44 AM CDT Pulse 79 01/04/2024 9:44 AM CDT Temperature 36.5 C (97.7 F) 08/22/2023 9:23 AM CITIZEN PARTICIPATION SPECIALIST Respiratory Rate 16 01/04/2024 9:44 AM CDT [...] CREATININE RATIO, URINE Routine 08/18/2023 9:29 AM CITIZEN PARTICIPATION SPECIALIST Type 2 diabetes mellitus without complication, without [...] A1C 7.9(H) <5.7 % of total Hgb KARALITAl Lazaro Comment: For someone without known diabetes, [...] change in test platforms from the Robbins Laser Beam Color Scanner Operator to the Nilay pepe c503 may have shifted HbA1c results compared to historical results. Based on laboratory validation testing conducted at [facility], the Nilay platform relative to the Robbins [...] MD LAB BLOOD ORDERABLES Final Re sult [facility] [address] [place] [address] * (ABNORMAL) Lipid panel (02/01/2024 9:36 AM CDT) [facility] Cholesterol 155 <200 mg/dL Owned it alfred Lazaro HDL 45(L) > OR = 50 mg/dL Owned itS alfred Lazaro Triglycerides 119 <150 mg/dL [facility] LDL 88 mg/dL (calc) Owned itS alfred Lazaro Comment: Reference range: <100 Desirable range <100 mg/dL for primary prevention; <70 mg/dL for patients with CHD or diabetic patients with > or = 2 CHD risk factors. LDL-C is now calculated using the Liu-Baldo calculation, which is a validated novel method providing better accuracy than the Friedewald equation in the estimation of LDL-C. Liu GIBBS et al. ZAC. 2013;310(19): 3553-3927 (http://education.LemonCrate.Azima/faq/TRU129) Chol/HDL ratio 3.4 <5.0 (calc) Owned itSandi Lazaro Non-HDL, (LDL+VLDL) 110 <130 mg/dL (calc) KARALIT-Sandi Lazaro Comment: For patients with diabetes plus 1 major ASCVD risk factor, treating to a non-HDL-C goal of <100 mg/dL (LDL-C of <70 mg/dL) is considered a therapeutic option. Blood 02/01/2024 9:36 AM CDT 02/01/2024 9:37 AM CDT Narrative [facility] - 02/01/2024 10:21 PM CDT FASTING:YES FASTING: YES James Stapleton MD LAB BLOOD ORDERABLES Final Re sult [facility] [address] [place] [address] * (ABNORMAL) Comprehensive metabolic panel (02/01/2024 9:36 AM CDT) [facility] Glucose 123(H) 65 - 99 mg/dL Owned it alfred Tejas Comment: Fasting reference interval For someone without known diabetes, a glucose value between 100 and 125 mg/dL is consistent with prediabetes and should be confirmed with a follow-up test. BUN 11 7 - 25 mg/dL [facility] Creatinine 0.81 0.60 - 1.00 mg/dL [facility] eGFR 75 > OR = 60 mL/min/1.7 3m2 [facility] BUN/creat ratio SEE NOTE: 6 - 22 (calc) [facility] Comment: Not Reported: BUN and Creatinine are within reference range. Sodium 137 135 - 146 mmol/L [facility] Potassium, pl 4.1 3.5 - 5.3 mmol/L [facility] Chloride 104 98 - 110 mmol/L [facility] CO2 25 20 - 32 mmol/L [facility] Calcium 9.3 8.6 - 10.4 mg/dL [facility] Protein, sr 6.6 6.1 - 8.1 g/dL [facility] Albumin 4.1 3.6 - 5.1 g/dL [facility] GLOBULIN 2.5 1.9 - 3.7 g/dL (calc) [facility] Alb/glob ratio 1.6 1.0 - 2.5 (calc) [facility] Bilirubin, total 0.7 0.2 - 1.2 mg/dL [facility] Alk phos 63 37 - 153 U/L [facility] AST 21 10 - 35 U/L [facility] ALT (SGPT) 14 6 - 29 U/L [facility] Blood 02/01/2024 9:36 AM CDT 02/01/2024 9:37 AM CDT Narrative [facility] - 02/01/2024 10:21 PM CDT FASTING:YES FASTING: YES James Stapleton MD LAB BLOOD ORDERABLES Final Re sult [facility] [address] [place] [address] * (ABNORMAL) Albumin Creatinine Ratio, Urine (08/18/2023 9:29 AM CITIZEN PARTICIPATION SPECIALIST) Creatinine, ur 87 20 - 275 mg/dL [...] a diagnostic category. Urine 08/18/2023 9:29 AM CITIZEN PARTICIPATION SPECIALIST 08/18/2023 9:32 AM CITIZEN PARTICIPATION SPECIALIST Narrative [facility] - 08/19/2023 12:59 PM CITIZEN PARTICIPATION SPECIALIST FASTING:YES FASTING: YES James Stapleton MD LAB URINE ORDERABLES Final Re sult Performing Organization Address City/[facility]/ZIP Co de Phone Number [facility] [address] [address] * COLONOSCOPY (05/02/2023 4:26 PM CDT) Anatomical Region Laterality Modality Other Narrative Procedure Note Jose Benavidez MD - 05/02/2023 4:26 PM CDT [facility] Patient Name: Zenobia White Procedure Date: 05/02/2023 4:26 PM Date of : 1945 Admit Type: Inpatient Age: 77 Gender: Female Note Status: Finalized Attending MD: Jose Benavidez M.D. 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 Medicines: Fentanyl [...] the bowelpreparation was evaluated using the BBPS ([place] BowelPreparation Scale) with scores of: Right Colon [...] not recommended. 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 All rights reserved. The codes documented in this report are preliminary and upon clip riveter reviewmay be revised to meet current compliance [...] old F with given history of screening. Substation Manager/Model: [employer] A (S/N [id number]) CLINICAL INFORMATION: Current height: 60.5 inches Maximum [...] Kathleen Birmingham M.D. TW: TW Report ID: [id number] Reading Location: [id number] Procedure Note Kathleen Birmingham MD - 11/09/2022 EXAM DESCRIPTION: DEXA AXIAL SKELETON BONE DENSITY 1 OR MORE SITES REASON FOR STUDY: 77 y/o year old F with given history of screening. Substation Manager/Model: [employer] A (S/N [id number]) CLINICAL INFORMATION: Current height: 60.5 inches Maximum [...] Kathleen Birmingham M.D. TW: LOREN Report ID: [id number] Reading Location: [id number] us James Stapleton MD IMG DXA PROCEDURES [...] by Karlos Mane M.D., MD: Report ID: [id number] Reading Location: MAMME Narrative 04/07/2022 11:42 AM [...] Most Recently Relevant to Health Maintenance Insurance [facility] Advance Directives For more information, please contact: [phone] Documents on File Type Date Recorded Patient Clinical Lab Scientist Expl anation ADVANCE DIRECTIVE 03/29/2019 * Full Code (Latest Code Status on File) Date Activated Date Inactivated Comments 05/02/2023 3:13 PM 05/05/2023 10:06 PM * Full Code Date Activated Date Inactivated Comments 05/01/2023 1:15 PM 05/02/2023 3:13 PM Care Teams Sheet Rock Applier Relationship Specialty Start Date End Date James Stapleton MD PCP - General Family Medicine 10/15/18 [place] [id number] [address] Consulting Physician Gastroenterology 05/05/23
--- NOTE | 2024-11-24 12:17 | PC.NURSE ---
pt ate lunch and this RN checked her BG after. pt BG was 54. pt was given 2 orange juices
[2024-11-24 12:18] LABS: Glucose Point of Care 54 mg/dl (65-105)
[2024-11-24 13:01] LABS: Glucose Point of Care 72 mg/dl (65-105)
== END 2024-11-24 14:37 | disposition home or self-care (01) ==
PROVIDERS: Emergency Provider Emergency Medicine; PCP Internal Medicine
DX: E11.649 Type 2 diabetes mellitus with hypoglycemia without coma (principal); E03.9 Hypothyroidism, unspecified; I10 Essential (primary) hypertension; Z87.891 Personal history of nicotine dependence
CPT/HCPCS: 36415; 70450; 71046; 72125; 80053; 81003; 82948; 85025; 93005; 99284